=== PATIENT | female | born 1960 | race Caucasian/White ===

== ENCOUNTER 2016-10-30 06:38 | Day surgery (SDC) | payer MEDICAID ==
--- NOTE | 2016-10-16 07:55 | HP ---
DATE OF ADMISSION: 10/23/2016 HISTORY OF PRESENT ILLNESS: The patient is being scheduled today for an outpatient surgery orthopedic for an arthroscopy of the left knee. The patient had a previous arthroscopic surgery dating back to 04/29/2016, was doing very well until she suddenly developed severe pain, locking, catching, and grating type sensation in the inside portion of her left knee. The patient has gone through a treatment program that has failed including physical therapy, antiinflammatory medications, cortisone injection, all of which have been no improvement for her. She continues to have severe pain on activity and movement and walking. Pain scale is 7-8. With the failed treatment, the patient was seen in orthopedic clinic and discussed for repeat arthroscopic evaluation of the left knee joint for treatment of the probable degenerative tearing of the medial meniscus or possible loose joint fragment or fibrous tissue. She understands the procedure and has consented to it. We will schedule her for outpatient surgery. ALLERGIES: The patient has multiple allergies that include Disalcid, Imitrex, Serc, Cefotan, Compazine, erythromycin, Lescol, Lipitor, penicillins, Darvocet, Prozac, Pyridium, Remeron, tetracyclines, Vibramycin, and Welchol. CURRENT MEDICATIONS: Patient currently on Advil 200 mg, albuterol 90. She is on amitriptyline 75 mg, atenolol 25 mg, Florajen3 oral capsules, gemfibrozil 600 mg, Lyrica 100 mg, metformin 500 mg, Indocin 75 mg, Protonix, tramadol, and Nitrostat. PAST MEDICAL HISTORY: The current medical problems include diabetes, history of high blood pressure, increased cholesterol. PAST SURGICAL HISTORY: Positive. The patient underwent recent left knee arthroscopic surgery on 04/29/2016 in which the patient has had no anesthesia problems or complications. Bleeding history is negative. Blood clot history is negative. SOCIAL HISTORY: Tobacco use negative. Alcohol use negative. PHYSICAL EXAMINATION: GENERAL: Today reveals a well-developed, well-nourished, 56-year-old female in moderate distress. HEAD, EYES, EARS, NOSE, THROAT: Normocephalic. NECK: Supple. CHEST: Clear. COR: Regular rate. ABDOMEN: Soft. : Intact. MUSCULOSKELETAL: Examination of the left knee revealed severe pain on direct pressure, palpation along the medial joint area. Anna's very positive for medial meniscus tear. The patient has positive snapping and grating on range of motion of the left knee with direct palpation. Minimal swelling noted. RADIOLOGY: Patient had previous MRI of the left knee which shows degenerative tearing of the medial meniscus, also there is significant bony edema of the medial femoral condyle. ASSESSMENT: Left knee degenerative tearing of medial meniscus with intractable pain. Failed treatment. PLAN: Plan is for the patient to undergo arthroscopic surgery. MMODAL /[id number]
[~2016-10-30 06:38] MED LIST: Lactated Ringers 1,000 ML IV SCH; Lidocaine 1%/Sod Bicarbonate in NS 8.4% 1 ML Syringe IV PRN; Lidocaine 1%/Sod Bicarbonate in NS 8.4% 1 ML Syringe PRN; Scopolamine 1.5 MG Transdermal Patch TRDERM SCH; Sodium Chloride 0.9% 10 ML Syringe FLUSH PRN
[2016-10-30] MEDS ORDERED: Clindamycin Phosphate 900 MG in Sodium Chloride 0.9% 100 ML IV ONE (06:45)
[2016-10-30] MEDS ORDERED: fentaNYL 250 MCG/5 ML SDV ONE (07:24)
[2016-10-30] MEDS ORDERED: Midazolam 1 MG/ML 2 ML SDV ONE (07:24)
[2016-10-30] MEDS ORDERED: Propofol 200 MG/20 ML SDV ONE (07:24)
[2016-10-30] MEDS ORDERED: Ondansetron 4 MG/2 ML SDV ONE (07:24)
[2016-10-30] MEDS ORDERED: Lidocaine 1% 4 ML ONE (07:25)
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
[2016-10-30] MEDS ORDERED: EPINEPHrine 1 MG/ML 30 ML MDV ONE (07:30)
[2016-10-30] MEDS ORDERED: Bupivacaine 0.5%/EPINEPHrine 1:200,000 50 ML MDV ONE (07:30)
[2016-10-30] MEDS ORDERED: Sodium Chloride 0.9% 50 ML SDV ONE (07:31)
[2016-10-30] MEDS ORDERED: Ondansetron 4 MG/2 ML SDV IVPUSH PRN (07:34)
[2016-10-30] MEDS ORDERED: HYDROmorphone 0.5 MG/0.5 ML Syringe IVPUSH PRN ×2 (07:34→09:22)
[2016-10-30] MEDS ORDERED: Cyclobenzaprine 10 MG Tab PO PRN (07:34)
[2016-10-30] MEDS ORDERED: Acetaminophen/oxyCODONE 325-5 MG Tab PO PRN (07:34)
[2016-10-30] MEDS ORDERED: Ketorolac 15 MG/ML SDV IVPUSH PRN (07:34)
[2016-10-30] MEDS ORDERED: Morphine 15 MG Tab.ER PO PRN (07:45)
[2016-10-30] MEDS ORDERED: Vancomycin 1 GM, Vancomycin 500 MG in Sodium Chloride 0.9% 500 ML IV ONE (07:45)
[2016-10-30] MEDS ORDERED: diphenhydrAMINE 50 MG/ML SDV ONE (07:55)
[2016-10-30] MEDS ORDERED: Dexamethasone 4 MG/ML 5 ML MDV ONE (07:55)
[2016-10-30] MEDS ORDERED: Lactated Ringers 1,000 ML ONE (09:13)
[2016-10-30] MEDS ORDERED: fentaNYL 100 MCG/2 ML SDV IVPUSH PRN (09:22)
[2016-10-30] MEDS ORDERED: Ketorolac 30 MG/ML SDV IVPUSH PRN (09:22)
--- NOTE | 2016-10-30 09:26 | PCM.POSTAN ---
POST ANESTHESIA ASSESSMENT - MENTAL STATUS Mental Status: somnolent - VITAL SIGNS Pulse Rate: 62 SaO2: 98 Resp Rate: 11 Blood Pressure: 110/63 Temperature: 36.7 C - RESPIRATORY Respiratory Status: respiratory rate WNL, airway patent, O2 saturation stable, supplemental oxygen - CARDIOVASCULAR CV Status: pulse rate WNL, blood pressure stable - GASTROINTESTINAL GI Status: no symptoms - PAIN Pain Score: 0 - POST OP HYDRATION Hydration Status: adequate & stable - OBSERVATIONS Free Text/Narrative:: no anesthesia complications noted
[2016-10-30 12:50] VITALS: BP 126/78
--- NOTE | 2016-10-30 13:22 | OR ---
DATE OF OPERATION: 10/30/2016 SURGEON: José Miguel Padron MD PREOPERATIVE DIAGNOSIS: Internal derangement of left knee. POSTOPERATIVE DIAGNOSIS: 1. Acute osteochondrosis, medial femoral condyle with fragmentation exposed bone, left knee. 2. Recurrent degenerative tearing, medial meniscus, left knee. 3. Generalized fibrous adhesions, left knee joint. 4. Chondromalacia of patellae, moderate. ANESTHESIA: General. OPERATION PERFORMED: 1. Left knee arthroscopic partial medial meniscectomy and removal of degenerative tearing medial meniscus, posterior horn region. 2. Arthroscopic chondroplasty, medial femoral condyle. 3. Arthroscopic debridement of fibrous adhesions and scar, left knee joint. DESCRIPTION OF PROCEDURE: The patient was taken to the operating room in supine position, placed under a general anesthesia. The left leg was then prepped and draped in standard fashion for operation arthroscopically on the left knee. After prepping and draping, two portal incisions were used medial and lateral with the arthroscope introduced through the lateral compartment. Initial inspection of the anterior compartment from the ACL ligament to be intact. There were some fibrous adhesions present which were lightly shaved out. Examining the medial compartment, the anterior portion of the medial meniscus, I saw some fraying which was debrided. There was significant degeneration and fragmentation of the posterior horn central third to the medial meniscus. This was shaved out and then the edges were trimmed up with electrocautery. The bony surface of the tibial plateau showed mild osteochondrosis changes. The medial femoral condyle showed one central area of osteochondrosis with exposed bone and a second area to the medial side of femoral condyle over the central portion of the medial condyle, medial meniscus that showed exposed bone, but also the lamination of the cartilage from the bone surface was noted going out to the edge. This was smoothed out and shaved out with the cartilage being removed. The bony surfaces and the two areas were then burred to a bleeding bone structure. With the drop in the pressure of the water, the bleeding could easily be seen coming from the bone structure after osteochondroplasty was performed. Once that was satisfied, the operation proceeded with final inspection. Nerve hook was used to probe the medial meniscus from the posterior horn anteriorly. It was nice and stable. Intercondylar notch area of the anterior cruciate ligament was intact. Lateral compartment, lateral meniscus to be intact from the posterior horn anteriorly. Probing found no tearing. The condylar surfaces were intact. Suprapatellar area, the patella was shifted in a central area after undergoing a previous lateral release. There was a chondromalacia present in a healing phase and the major portion of the cartilage itself, minimal to no fragmentation was noted at this point. The operation proceeded with final inspection of suprapatellar area, then light debridement was carried out on some scar tissue. The joint was thoroughly irrigated and the operation then proceeded with closure of the wounds using a 3-0 Prolene. Nieves dressing was applied. At the initiation of the surgery, an arthrocentesis was carried out. Approximately 20 mL of serosanguineous-type fluid was removed from the joint area. This was sent for laboratory studies. ESTIMATED BLOOD LOSS: ANTHONY /[id number]
== END 2016-10-30 12:31 | disposition home or self-care (01) ==
LOC: JD.SDS 06:38
PROVIDERS: ATTEND Specialist
PROC: 0SBD4ZZ Excision of Left Knee Joint, Percutaneous Endoscopic Approach (ICD-10-PCS; principal; 2016-10-30)
DX: M93.862 Other specified osteochondropathies, left lower leg (principal); M23.322 Other meniscus derangements, posterior horn of medial meniscus, left knee; M23.8X2 Other internal derangements of left knee; M22.42 Chondromalacia patellae, left knee; E11.9 Type 2 diabetes mellitus without complications; I10 Essential (primary) hypertension; E78.00 Pure hypercholesterolemia, unspecified; G40.909 Epilepsy, unspecified, not intractable, without status epilepticus; J45.909 Unspecified asthma, uncomplicated; G90.529 Complex regional pain syndrome I of unspecified lower limb; F32.9 Major depressive disorder, single episode, unspecified; F41.1 Generalized anxiety disorder; K21.9 Gastro-esophageal reflux disease without esophagitis; M19.90 Unspecified osteoarthritis, unspecified site; Z88.0 Allergy status to penicillin; Z88.1 Allergy status to other antibiotic agents; Z88.6 Allergy status to analgesic agent; Z88.8 Allergy status to other drugs, medicaments and biological substances; Z79.82 Long term (current) use of aspirin; Z79.84 Long term (current) use of oral hypoglycemic drugs; Z79.899 Other long term (current) drug therapy; Z86.14 Personal history of Methicillin resistant Staphylococcus aureus infection; Z86.711 Personal history of pulmonary embolism; Z86.010 Personal history of colon polyps; Z87.442 Personal history of urinary calculi; Z86.19 Personal history of other infectious and parasitic diseases; Z87.891 Personal history of nicotine dependence; Z98.890 Other specified postprocedural states; Z90.710 Acquired absence of both cervix and uterus; Z90.49 Acquired absence of other specified parts of digestive tract
CPT/HCPCS: 29881; 82945; 82962; 84157; 89050; 89060; 93005; A9270; J0171; J1100; J1170; J1200; J2250; J2405; J3010; J3370; J7030; J7040; J7120; 01400; J2704

== ENCOUNTER 2017-08-17 09:28 | Inpatient (IN) | payer MEDICAID, SELFPAY ==
[~2017-08-17 09:28] MED LIST changes: +Albuterol 0.083% 2.5 MG/3 ML Neb Soln NEB SCH; +Lidocaine 1%/Sod Bicarbonate in NS 8.4% 1 ML Syringe IDERM PRN; -Lidocaine 1%/Sod Bicarbonate in NS 8.4% 1 ML Syringe IV PRN; -Lidocaine 1%/Sod Bicarbonate in NS 8.4% 1 ML Syringe PRN; +Scopolamine 1.5 MG Transdermal Patch TOP SCH
[2017-08-17] MEDS ORDERED: Morphine 8 MG, EPINEPHrine 0.3 MG, Cefuroxime 750 MG, Ketorolac 30 MG, Sodium Chloride ... ONE ×6 (10:30)
[2017-08-17] MEDS ORDERED: fentaNYL 100 MCG/2 ML SDV ONE ×2 (10:43→14:16)
[2017-08-17] MEDS ORDERED: Propofol 200 MG/20 ML SDV ONE ×2 (10:43→10:46)
[2017-08-17] MEDS ORDERED: Iodine/Sodium Iodide 2% Tincture 30 ML Bottle ONE (11:10)
[2017-08-17] MEDS ORDERED: Bupivacaine 0.25% 30 ML SDV ONE (11:10)
[2017-08-17] MEDS ORDERED: ceFAZolin 1 GM Vial ONE (11:10)
[2017-08-17] MEDS ORDERED: Vancomycin 1 GM SDV ONE (11:10)
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
[2017-08-17] MEDS ORDERED: Rocuronium 50 MG/5 ML Vial ONE (12:00)
[2017-08-17] MEDS ORDERED: HYDROmorphone 0.5 MG/0.5 ML Syringe ONE ×2 (12:01→14:00)
[2017-08-17] MEDS ORDERED: Midazolam 1 MG/ML 2 ML SDV ONE (12:05)
[2017-08-17] MEDS ORDERED: fentaNYL 250 MCG/5 ML SDV ONE (12:25)
[2017-08-17] MEDS ORDERED: Ondansetron 4 MG/2 ML SDV ONE (12:26)
[2017-08-17] MEDS: Morphine 8 MG, EPINEPHrine 0.3 MG, Cefuroxime 750 MG, Ketorolac 30 MG, Sodium Chloride ... ONE ×10 (13:24→16:59)
[2017-08-17] MEDS ORDERED: EPINEPHrine 1 MG/ML SDV ONE (13:27)
[2017-08-17] MEDS ORDERED: Ropivacaine 0.5% 5 MG/ML 30 ML SDV ONE (13:27)
[2017-08-17] MEDS ORDERED: Lactated Ringers 1,000 ML ONE (13:58)
[2017-08-17] MEDS ORDERED: Naloxone 0.4 MG/ML SDV IVPUSH PRN (14:00)
[2017-08-17] MEDS ORDERED: Magnesium Hydroxide 400 MG/5 ML Susp 30 ML Cup PO PRN (14:00)
[2017-08-17] MEDS ORDERED: Sennosides 8.6 MG Tab PO PRN (14:00)
[2017-08-17] MEDS ORDERED: Morphine 2 MG/ML Syringe IVPUSH PRN (14:00)
[2017-08-17] MEDS ORDERED: Bisacodyl 5 MG Tab PO PRN (14:00)
[2017-08-17] MEDS ORDERED: Lidocaine 1% 2 ML ONE (14:10)
[2017-08-17] MEDS ORDERED: HYDROmorphone 0.5 MG/0.5 ML Syringe IVPUSH ONE (14:10)
[2017-08-17] MEDS ORDERED: Ondansetron 4 MG/2 ML SDV IVPUSH PRN (14:10)
[2017-08-17] MEDS ORDERED: fentaNYL 100 MCG/2 ML SDV IVPUSH PRN (14:10)
--- NOTE | 2017-08-17 14:10 | PCM.POSTAN ---
POST ANESTHESIA ASSESSMENT - MENTAL STATUS Mental Status: Alert, Oriented - VITAL SIGNS Pulse Rate: 92 SaO2: 98 Resp Rate: 16 Blood Pressure: 149/69 Temperature: 36.8 C - RESPIRATORY Respiratory Status: Respiratory Rate WNL, Airway Patent, O2 Saturation Stable, Supplemental Oxygen - CARDIOVASCULAR CV Status: Pulse Rate WNL, Blood Pressure Stable - GASTROINTESTINAL GI Status: No Symptoms - PAIN Pain Score: 5 (pain meds per RN) - POST OP HYDRATION Hydration Status: Adequate & Stable
--- NOTE | 2017-08-17 14:52 | PCM.SN ---
- Free Text/Narrative Note: Left selective femoral nerve block at the adductor canal for post-procedure pain control under US guidance requested by Dr. Walsh. Time Out: 1431 Start: 1437 End: 1440 Chart reviewed. Consent signed. Questions answered. Appropriate monitors applied. Time out performed. Right mid-shaft femur identified with ultrasound, scanning medially of femur, the femoral artery in the adductor canal visualized , and the femoral nerve located laterally to the artery. The skin was prepped lateral to the ultrasound probe with chlorahexadine times two. The 21ga 4 insulated block needle was inserted under direct ultrasound guidance into the adductor canal. 25mL of 0.5% ropivacaine with 1:200,000 epinephrine was injected circumferentially around the nerve with intermittent negative aspiration noted. Patient tolerated the procedure well. Aseptic technique noted along with sterile gloves, mask, and sterile probe cover. See pictures on progress note and vital signs on nurses notes. Block completed in PACU with Gene Alford CRNA assist. Jeffrey Webster CRNA
--- NOTE | 2017-08-17 15:03 | CR ---
Left knee: Two views of the left knee were obtained. Comparison: Prior MRI left knee exam of 03/06/17. Knee prosthesis is seen. Components are aligned. Underlying bony structures are intact. Soft tissue air is noted from surgical procedure. Impression: 1. Satisfactory postoperative radiographic appearance of recently placed left knee prosthesis. Diagnostic code #2
[2017-08-17] MEDS ORDERED: Nitroglycerin 0.4 MG Tab.SL SL PRN (15:16)
[2017-08-17] MEDS ORDERED: ASPERCREME TOP PRN (15:16)
[2017-08-17] MEDS: Acetaminophen/oxyCODONE 325-5 MG Tab PO PRN ×2 (15:55→22:34)
[2017-08-17] MEDS: Pregabalin 25 MG Cap PO SCH ×2 (17:08→20:16)
[2017-08-17] MEDS: Hypromellose 0.5% Ophth Soln 15 ML Bottle EYEBOTH SCH ×2 (17:08→20:17)
[2017-08-17] MEDS: Polyethylene Glycol 3350 Powder 17 GM Packet PO SCH (17:08)
[2017-08-17] MEDS: Gemfibrozil 600 MG Tab PO SCH (20:16)
[2017-08-17] MEDS: traZODone 50 MG Tab PO SCH (20:16)
[2017-08-17] MEDS: Nortriptyline 25 MG Cap PO SCH (20:16)
[2017-08-17] MEDS: Docusate Sodium 100 MG Cap PO SCH (20:17)
[2017-08-17] MEDS: ceFAZolin 2 GM in Premix Bag 1 BAG IV SCH (20:17)
[2017-08-17] MEDS: metFORMIN 500 MG Tab PO SCH (20:17)
[2017-08-17] MEDS ORDERED: Famotidine 20 MG Tab PO SCH (21:00)
[2017-08-17] MEDS: Ketorolac 15 MG/ML SDV IVPUSH PRN (22:35)
[2017-08-18] MEDS: Acetaminophen/oxyCODONE 325-5 MG Tab PO PRN ×5 (04:49→19:58)
[2017-08-18] MEDS: ceFAZolin 2 GM in Premix Bag 1 BAG IV SCH ×2 (04:50→12:00)
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
--- NOTE | 2017-08-18 08:05 | PCM48HPAN ---
Post Anesthesia Note - EVALUATION WITHIN 48HRS OF ANESTHETIC Vital Signs in Normal Range: Yes Patient Participated in Evaluation: Yes Respiratory Function Stable: Yes Airway Patent: Yes Cardiovascular Function Stable: Yes Hydration Status Stable: Yes Pain Control Satisfactory: Yes Nausea and Vomiting Control Satisfactory: Yes Mental Status Recovered: Yes
--- NOTE | 2017-08-18 08:22 | PCM.SURGPN ---
- General Info Date of Service: 08/18/17 POD#: 1 Functional Status: Reports: Pain Controlled, Tolerating Diet, Ambulating, Urinating, Incentive Spirometry, Other (The pt was pleased with her ability to walk in the room yesterday.) - Patient Data Vitals - Most Recent: Last Vital Signs Temp 98.1 F 08/18/17 04:54 Pulse 72 08/18/17 04:54 Resp 18 08/18/17 04:54 BP 107/62 08/18/17 04:54 Pulse Ox 95 08/18/17 04:54 Weight - Most Recent: 186 lb I&O - Last 24 Hours: Intake & Output 08/17/17 08/18/17 08/18/17 22:59 06:59 14:59 Intake Total 120 1000 Output Total 900 Balance 120 100 Lab Results Last 24 Hrs: Laboratory Results - last 24 hr 08/17/17 08/18/17 08/18/17 Range/Units 16:56 06:05 06:05 WBC 11.07 H (3.98-10.04) K/mm3 RBC 4.62 (3.98-5.22) M/mm3 Hgb 10.5 L (11.2-15.7) gm/L Hct 32.8 L (34.1-44.9) % MCV 71.0 L (79.4-94.8) fl MCH 22.7 L (25.6-32.2) pg MCHC 32.0 L (32.2-35.5) g/dl RDW Std Deviation 50.6 H (36.4-46.3) fL Plt Count 301 (182-369) K/mm3 MPV 11.4 (9.4-12.3) fl Sodium 132 L (136-145) mEq/L Potassium 4.3 (3.5-5.1) mEq/L Chloride 97 L (98-107) mEq/L Carbon Dioxide 26 (21-32) mEq/L Anion Gap 13.3 (5-15) BUN 20 H (7-18) mg/dL Creatinine 0.9 (0.55-1.02) mg/dL Est Cr Clr Drug Dosing 61.31 mL/min Estimated GFR (MDRD) > 60 (>60) mL/min BUN/Creatinine Ratio 22.2 H (14-18) Glucose 125 H (74-106) mg/dL POC Glucose 144 H (70-105) mg/dL Calcium 8.9 (8.5-10.1) mg/dL Total Bilirubin 0.3 (0.2-1.0) mg/dL AST 32 (15-37) U/L ALT 29 (14-59) U/L Alkaline Phosphatase 91 (46-116) U/L Total Protein 6.6 (6.4-8.2) g/dl Albumin 3.6 (3.4-5.0) g/dl Globulin 3.0 gm/dL Albumin/Globulin Ratio 1.2 (1-2) 08/18/17 Range/Units 06:28 WBC (3.98-10.04) K/mm3 RBC (3.98-5.22) M/mm3 Hgb (11.2-15.7) gm/L Hct (34.1-44.9) % MCV (79.4-94.8) fl MCH (25.6-32.2) pg MCHC (32.2-35.5) g/dl RDW Std Deviation (36.4-46.3) fL Plt Count (182-369) K/mm3 MPV (9.4-12.3) fl Sodium (136-145) mEq/L Potassium (3.5-5.1) mEq/L Chloride (98-107) mEq/L Carbon Dioxide (21-32) mEq/L Anion Gap (5-15) BUN (7-18) mg/dL Creatinine (0.55-1.02) mg/dL Est Cr Clr Drug Dosing mL/min Estimated GFR (MDRD) (>60) mL/min BUN/Creatinine Ratio (14-18) Glucose (74-106) mg/dL POC Glucose 134 H (70-105) mg/dL Calcium (8.5-10.1) mg/dL Total Bilirubin (0.2-1.0) mg/dL AST (15-37) U/L ALT (14-59) U/L Alkaline Phosphatase (46-116) U/L Total Protein (6.4-8.2) g/dl Albumin (3.4-5.0) g/dl Globulin gm/dL Albumin/Globulin Ratio (1-2) Med Orders - Current: Current Medications Artificial Tears (Isopto Tears 0.5% Ophth Soln) 0 ml EYEBOTH QID REPLACED BY [facility] Last Admin: 08/17/17 20:17 Dose: 1 drop Aspirin (Halfprin) 81 mg PO DAILY REPLACED BY [facility] Bisacodyl (Dulcolax) 5 mg PO DAILY PRN PRN Reason: Constipation Docusate Sodium (Colace) 100 mg PO BID REPLACED BY [facility] Last Admin: 08/17/17 20:17 Dose: 100 mg Gemfibrozil (Lopid) 600 mg PO BID REPLACED BY [facility] Last Admin: 08/17/17 20:16 Dose: 600 mg Hydroxyzine HCl (Atarax) 50 mg PO QAM REPLACED BY [facility] Cefazolin Sodium/Dextrose 2 gm (/ Premix) 50 mls @ 100 mls/hr IV Q8H REPLACED BY [facility] Stop: 08/18/17 12:29 Last Admin: 08/18/17 04:50 Dose: 100 mls/hr Ketorolac Tromethamine (Toradol) 15 mg IVPUSH Q6H PRN PRN Reason: Pain Last Admin: 08/17/17 22:35 Dose: 15 mg Lisinopril (Prinivil) 20 mg PO DAILY REPLACED BY [facility] Magnesium Hydroxide (Milk Of Magnesia) 30 ml PO BID PRN PRN Reason: Constipation Metformin HCl (Glucophage) 500 mg PO BID REPLACED BY [facility] Last Admin: 08/17/17 20:17 Dose: 500 mg Morphine Sulfate (Morphine) 2 mg IVPUSH Q2H PRN PRN Reason: Breakthrough Pain Naloxone HCl (Narcan) 0.1 mg IVPUSH Q5M PRN PRN Reason: Oversedation Nitroglycerin (Nitrostat) 0.4 mg SL Q5M PRN PRN Reason: Chest Pain Non-Formulary Medication (Hydroxyzine Pamoate [Hydroxyzine Pamoate]) 150 mg PO QPM REPLACED BY [facility] NfAspercreme ( Trolamine Salicylate /Aloe Vera) 1 applic TOP QID PRN PRN Reason: Pain Nortriptyline HCl (Nortriptyline) 50 mg PO BEDTIME REPLACED BY [facility] Last Admin: 08/17/17 20:16 Dose: 50 mg Ondansetron HCl (Zofran) 4 mg IVPUSH Q6H PRN PRN Reason: Nausea/Vomiting Oxycodone/Acetaminophen (Percocet 325-5 Mg) 1 - 2 tab PO Q4H PRN PRN Reason: Pain Last Admin: 08/18/17 04:49 Dose: 2 tab Pantoprazole Sodium (Protonix) 40 mg PO DAILY REPLACED BY [facility] Polyethylene Glycol (Miralax) 17 gm PO Q48H REPLACED BY [facility] Last Admin: 08/17/17 17:08 Dose: 17 gm Pregabalin (Lyrica) 100 mg PO TID REPLACED BY [facility] Last Admin: 08/17/17 20:16 Dose: 100 mg Rivaroxaban (Xarelto) 10 mg PO DAILY REPLACED BY [facility] Saccharomyces Boulardii (Florastor) 250 mg PO DAILY REPLACED BY [facility] Senna (Senna) 8.6 mg PO BID PRN PRN Reason: Constipation Trazodone HCl (Trazodone) 100 mg PO BEDTIME REPLACED BY [facility] Last Admin: 08/17/17 20:16 Dose: 100 mg Discontinued Medications Albuterol (Proventil Neb Soln) 2.5 mg NEB ONETIME REPLACED BY [facility] Stop: 07/27/17 16:00 Bupivacaine HCl (Marcaine 0.25%) Confirm Administered Dose 30 ml .ROUTE .STK- MED ONE Stop: 08/17/17 11:11 Last Admin: 08/17/17 13:25 Dose: 30 ml Cefazolin Sodium (Ancef) Confirm Administered Dose 2 gm .ROUTE .STK-MED ONE Stop: 08/17/17 11:11 Last Admin: 08/17/17 13:19 Dose: 2 gm Morphine Sulfate 8 mg/Epinephrine HCl 0.3 mg/Cefuroxime Sodium 750 mg/Ketorolac Tromethamine 30 mg/Sodium Chloride 27.9 ml 0 mg .XX ONETIME ONE Stop: 08/17/17 12:31 Last Admin: 08/17/17 16:59 Dose: Not Given Epinephrine HCl (Adrenalin) Confirm Administered Dose 1 mg .ROUTE .STK-MED ONE Stop: 08/17/17 13:28 Famotidine (Pepcid) 20 mg PO Q12H REPLACED BY [facility] Fentanyl (Sublimaze) Confirm Administered Dose 100 mcg .ROUTE .STK-MED ONE Stop: 08/17/17 10:44 Fentanyl (Sublimaze) Confirm Administered Dose 250 mcg .ROUTE .STK-MED ONE Stop: 08/17/17 12:26 Fentanyl (Sublimaze) 50 mcg IVPUSH Q5M PRN PRN Reason: pain Stop: 08/17/17 16:00 Last Admin: 08/17/17 14:17 Dose: 50 mcg Fentanyl (Sublimaze) Confirm Administered Dose 100 mcg .ROUTE .STK-MED ONE Stop: 08/17/17 14:17 Last Admin: 08/17/17 16:59 Dose: Not Given Hydromorphone HCl (Dilaudid) Confirm Administered Dose 0.5 mg .ROUTE .STK-MED ONE Stop: 08/17/17 12:02 Hydromorphone HCl (Dilaudid) Confirm Administered Dose 0.5 mg .ROUTE .STK-MED ONE Stop: 08/17/17 14:01 Hydromorphone HCl (Dilaudid) 0.5 mg IVPUSH ONETIME ONE Stop: 08/17/17 14:11 Last Admin: 08/17/17 14:36 Dose: 0.5 mg Lactated Ringer's (Ringers, Lactated) 1,000 mls @ 125 mls/hr IV ASDIRECTED REPLACED BY [facility] Stop: 07/27/17 23:00 Lactated Ringer's (Ringers, Lactated) 1,000 mls @ 125 mls/hr IV ASDIRECTED REPLACED BY [facility] Stop: 08/17/17 23:00 Last Admin: 08/17/17 11:20 Dose: 125 mls/hr Vancomycin HCl 1 gm/ Sodium (Chloride) 250 mls @ 250 mls/hr IV ONETIME ONE Stop: 08/17/17 13:29 Last Admin: 08/17/17 17:21 Dose: Not Given Lactated Ringer's (Ringers, Lactated) Confirm Administered Dose 1,000 mls @ as directed .ROUTE .STK-MED ONE Stop: 08/17/17 13:59 Lidocaine HCl (Xylocaine-Mpf 1%) Confirm Administered Dose 2 mls @ as directed .ROUTE .STK-MED ONE Stop: 08/17/17 14:11 Iodine (Iodine 2% Mild Tincture) Confirm Administered Dose 30 ml .ROUTE .STK- MED ONE Stop: 08/17/17 11:11 Last Admin: 08/17/17 13:17 Dose: 18 ml Lidocaine/Sodium Bicarbonate (Buffered Lidocaine 1% In Ns 8.4%) 0.25 ml IDERM ONETIME PRN PRN Reason: Prior to IV Start Stop: 07/27/17 18:00 Lidocaine/Sodium Bicarbonate (Buffered Lidocaine 1% In Ns 8.4%) 0.25 ml IDERM ONETIME PRN PRN Reason: Prior to IV Start Stop: 08/17/17 18:00 Last Admin: 08/17/17 11:19 Dose: 0.25 ml Midazolam HCl (Versed 1 Mg/Ml) Confirm Administered Dose 2 mg .ROUTE .STK-MED ONE Stop: 08/17/17 12:06 Ondansetron HCl (Zofran) Confirm Administered Dose 4 mg .ROUTE .STK-MED ONE Stop: 08/17/17 12:27 Ondansetron HCl (Zofran) 4 mg IVPUSH ONETIME PRN PRN Reason: Nausea/Vomiting Stop: 08/17/17 17:00 Propofol (Diprivan 20 Ml) Confirm Administered Dose 200 mg .ROUTE .STK-MED ONE Stop: 08/17/17 10:44 Propofol (Diprivan 20 Ml) Confirm Administered Dose 200 mg .ROUTE .STK-MED ONE Stop: 08/17/17 10:47 Rocuronium [place] (Zemuron) Confirm Administered Dose 50 mg .ROUTE .STK-MED ONE Stop: 08/17/17 12:01 Ropivacaine (Naropin 0.5%) Confirm Administered Dose 30 ml .ROUTE .STK-MED ONE Stop: 08/17/17 13:28 Scopolamine (Transderm-Scop) 1.5 mg TOP ONETIME [facility] Stop: 07/27/17 16:00 Scopolamine (Transderm-Scop) 1.5 mg TRDERM ONETIME [facility] Stop: 08/17/17 18:00 Last Admin: 08/17/17 11:48 Dose: 1.5 mg Sodium Chloride (Saline Flush) 10 ml FLUSH ASDIRECTED PRN PRN Reason: Keep Vein Open Stop: 07/27/17 18:00 Sodium Chloride (Saline Flush) 10 ml FLUSH ASDIRECTED PRN PRN Reason: Keep Vein Open Stop: 08/17/17 18:00 Tranexamic Acid (Cyklokapron) Confirm Administered Dose 1,000 mg .ROUTE .STK- MED ONE Stop: 08/17/17 11:10 Last Admin: 08/17/17 13:32 Dose: 1,000 mg Vancomycin HCl (Vancomycin) Confirm Administered Dose 1 gm .ROUTE .STK-MED ONE Stop: 08/17/17 11:11 Last Admin: 08/17/17 13:27 Dose: 1 gm Vancomycin HCl (Pharmacy To Dose - Vancomycin) 1 dose .XX ASDIRECTED [facility] Stop: 08/17/17 13:00 - Exam Wound/Incisions: Dressing Dry and Intact General: Alert, Cooperative, No Acute Distress Lungs: Normal Respiratory Effort Extremities: Other (Active left knee motion noted. Nick's negative for BLE.) - Problem List Review Problem List Initiated/Reviewed/Updated: Yes - My Orders Last 24 Hours: Active Orders 24 hr Category Date Time Status Notify Provider [RC] ASDIRECTED Care 08/17/17 14:10 Active POC Glucose [Blood Glucose Check, Bedside] [] 0700, Care 08/18/17 07:00 Active 1100 Pulse Oximetry [] ASDIRECTED Care 08/17/17 14:10 Active ADA Diabetic [[place] [employer] Diet] [DIET Diet 08/17/17 Dinner Active ] Acetaminophen/oxyCODONE [Percocet 325-5 MG] Med 08/17/17 14:00 Active 1 - 2 tab PO Q4H PRN Aspirin [Halfprin] Med 08/18/17 09:00 Active 81 mg PO DAILY Bisacodyl [Dulcolax] Med 08/17/17 14:00 Active 5 mg PO DAILY PRN Docusate Sodium [Colace] Med 08/17/17 21:00 Active 100 mg PO BID Gemfibrozil [Lopid] Med 08/17/17 21:00 Active 600 mg PO BID Hypromellose [Isopto Tears 0.5% Ophth Soln] Med 08/17/17 17:00 Active 0 ml EYEBOTH QID Ketorolac [Toradol] Med 08/17/17 14:00 Active 15 mg IVPUSH Q6H PRN Lisinopril [Prinivil] Med 08/18/17 09:00 Active 20 mg PO DAILY Magnesium Hydroxide [Milk of Magnesia] Med 08/17/17 14:00 Active 30 ml PO BID PRN Morphine Med 08/17/17 14:00 Active 2 mg IVPUSH Q2H PRN Naloxone [Narcan] Med 08/17/17 14:00 Active 0.1 mg IVPUSH Q5M PRN Nitroglycerin [Nitrostat] Med 08/17/17 15:16 Active 0.4 mg SL Q5M PRN Nortriptyline Med 08/17/17 21:00 Active 50 mg PO BEDTIME Ondansetron [Zofran] Med 08/17/17 14:00 Active 4 mg IVPUSH Q6H PRN Pantoprazole [ProTONIX] Med 08/18/17 09:00 Active 40 mg PO DAILY Polyethylene Glycol 3350 [MiraLAX] Med 08/17/17 16:30 Active 17 gm PO Q48H Pregabalin [Lyrica] Med 08/17/17 16:30 Active 100 mg PO TID Rivaroxaban [Xarelto] Med 08/18/17 09:00 Active 10 mg PO DAILY Saccharomyces Boulardii [Florastor] Med 08/18/17 09:00 Active 250 mg PO DAILY Sennosides [Senna] Med 08/17/17 14:00 Active 8.6 mg PO BID PRN Trolamine Salicylate/Aloe Vera Med 08/17/17 15:16 Pending 1 applic TOP QID PRN ceFAZolin [Ancef] 2 gm Med 08/17/17 20:00 Active Premix Bag 1 bag IV Q8H hydrOXYzine HCl [Atarax] Med 08/18/17 08:00 Active 50 mg PO QAM hydrOXYzine Pamoate [Hydroxyzine Pamoate] Med 08/17/17 18:00 Pending 150 mg PO QPM metFORMIN [Glucophage] Med 08/17/17 21:00 Active 500 mg PO BID traZODone Med 08/17/17 21:00 Active 100 mg PO BEDTIME Medication Orders Artificial Tears (Isopto Tears 0.5% Ophth Soln) 0 ml EYEBOTH QID REPLACED BY [facility] Last Admin: 08/17/17 20:17 Dose: 1 drop Admin: 08/17/17 17:08 Dose: 1 drop Aspirin (Halfprin) 81 mg PO DAILY REPLACED BY [facility] Bisacodyl (Dulcolax) 5 mg PO DAILY PRN PRN Reason: Constipation Docusate Sodium (Colace) 100 mg PO BID REPLACED BY [facility] Last Admin: 08/17/17 20:17 Dose: 100 mg Gemfibrozil (Lopid) 600 mg PO BID REPLACED BY [facility] Last Admin: 08/17/17 20:16 Dose: 600 mg Hydroxyzine HCl (Atarax) 50 mg PO QAM REPLACED BY [facility] Cefazolin Sodium/Dextrose 2 gm (/ Premix) 50 mls @ 100 mls/hr IV Q8H REPLACED BY [facility] Stop: 08/18/17 12:29 Last Admin: 08/18/17 04:50 Dose: 100 mls/hr Infusion: 08/17/17 20:47 Dose: 100 mls/hr Admin: 08/17/17 20:17 Dose: 100 mls/hr Ketorolac Tromethamine (Toradol) 15 mg IVPUSH Q6H PRN PRN Reason: Pain Last Admin: 08/17/17 22:35 Dose: 15 mg Lisinopril (Prinivil) 20 mg PO DAILY REPLACED BY [facility] Magnesium Hydroxide (Milk Of Magnesia) 30 ml PO BID PRN PRN Reason: Constipation Metformin HCl (Glucophage) 500 mg PO BID REPLACED BY [facility] Last Admin: 08/17/17 20:17 Dose: 500 mg Morphine Sulfate (Morphine) 2 mg IVPUSH Q2H PRN PRN Reason: Breakthrough Pain Naloxone HCl (Narcan) 0.1 mg IVPUSH Q5M PRN PRN Reason: Oversedation Nitroglycerin (Nitrostat) 0.4 mg SL Q5M PRN PRN Reason: Chest Pain Non-Formulary Medication (Hydroxyzine Pamoate [Hydroxyzine Pamoate]) 150 mg PO QPM REPLACED BY [facility] NfAspercreme ( Trolamine Salicylate /Aloe Vera) 1 applic TOP QID PRN PRN Reason: Pain Nortriptyline HCl (Nortriptyline) 50 mg PO BEDTIME REPLACED BY [facility] Last Admin: 08/17/17 20:16 Dose: 50 mg Ondansetron HCl (Zofran) 4 mg IVPUSH Q6H PRN PRN Reason: Nausea/Vomiting Oxycodone/Acetaminophen (Percocet 325-5 Mg) 1 - 2 tab PO Q4H PRN PRN Reason: Pain Last Admin: 08/18/17 04:49 Dose: 2 tab Admin: 08/17/17 22:34 Dose: 2 tab Admin: 08/17/17 15:55 Dose: 2 tab Pantoprazole Sodium (Protonix) 40 mg PO DAILY REPLACED BY [facility] Polyethylene Glycol (Miralax) 17 gm PO Q48H REPLACED BY [facility] Last Admin: 08/17/17 17:08 Dose: 17 gm Pregabalin (Lyrica) 100 mg PO TID REPLACED BY [facility] Last Admin: 08/17/17 20:16 Dose: 100 mg Admin: 08/17/17 17:08 Dose: 100 mg Rivaroxaban (Xarelto) 10 mg PO DAILY REPLACED BY [facility] Saccharomyces Boulardii (Florastor) 250 mg PO DAILY REPLACED BY [facility] Senna (Senna) 8.6 mg PO BID PRN PRN Reason: Constipation Trazodone HCl (Trazodone) 100 mg PO BEDTIME REPLACED BY [facility] Last Admin: 08/17/17 20:16 Dose: 100 mg - Assessment Assessment (Free Text/Narrative):: POD#1 - left TKA - Plan Plan (Free Text/Narrative):: 1. Xarelto, frequent mobility, TEDs, SCDs. 2. Hgb 10.5. 3. Likely d/c to Longterm. 4. Continue with P.T. and O.T. The pt's case was discussed with Dr. Walsh.
[2017-08-18] MEDS: Hypromellose 0.5% Ophth Soln 15 ML Bottle EYEBOTH SCH ×4 (09:29→20:00)
[2017-08-18] MEDS: Gemfibrozil 600 MG Tab PO SCH ×2 (09:30→20:00)
[2017-08-18] MEDS: Docusate Sodium 100 MG Cap PO SCH ×2 (09:30→20:00)
[2017-08-18] MEDS: Pantoprazole 40 MG Tab.CR PO SCH (09:30)
[2017-08-18] MEDS: Aspirin 81 MG Tab.EC PO SCH (09:30)
[2017-08-18] MEDS: hydrOXYzine HCl 50 MG Tab PO SCH ×3 (09:30→17:09)
[2017-08-18] MEDS: metFORMIN 500 MG Tab PO SCH ×2 (09:30→20:00)
[2017-08-18] MEDS: Saccharomyces Boulardii (Probiotic) 250 MG Cap PO SCH (09:30)
[2017-08-18] MEDS: Lisinopril 20 MG Tab PO SCH (09:31)
[2017-08-18] MEDS: Rivaroxaban 10 MG Tab PO SCH (09:31)
[2017-08-18] MEDS: Ondansetron 4 MG/2 ML SDV IVPUSH PRN (10:23)
[2017-08-18] MEDS: Ketorolac 15 MG/ML SDV IVPUSH PRN (10:32)
[2017-08-18] MEDS ORDERED: Pregabalin 75 MG Cap PO SCH (11:09)
[2017-08-18] MEDS: Pregabalin 25 MG Cap PO SCH ×4 (11:58→20:00)
[2017-08-18] MEDS: Pregabalin 75 MG Cap PO SCH ×3 (14:26→20:00)
[2017-08-18] MEDS: Nortriptyline 25 MG Cap PO SCH (20:00)
[2017-08-18] MEDS: traZODone 50 MG Tab PO SCH (20:00)
[2017-08-18] MEDS ORDERED: traMADol 50 MG Tab PO PRN ×2 (21:51→21:56)
[2017-08-18] MEDS ORDERED: oxyCODONE 5 MG Tab PO PRN (21:54)
[2017-08-18] MEDS: traMADol 50 MG Tab PO PRN (22:26)
[2017-08-19] MEDS: Acetaminophen/oxyCODONE 325-5 MG Tab PO PRN ×5 (04:02→21:42)
[2017-08-19] MEDS: traMADol 50 MG Tab PO PRN ×2 (05:39→12:16)
[2017-08-19] MEDS: Pregabalin 75 MG Cap PO SCH ×3 (08:20→21:43)
[2017-08-19] MEDS: Hypromellose 0.5% Ophth Soln 15 ML Bottle EYEBOTH SCH ×4 (08:20→21:43)
[2017-08-19] MEDS: Pantoprazole 40 MG Tab.CR PO SCH (08:20)
[2017-08-19] MEDS: Lisinopril 20 MG Tab PO SCH (08:20)
[2017-08-19] MEDS: Aspirin 81 MG Tab.EC PO SCH (08:20)
[2017-08-19] MEDS: Rivaroxaban 10 MG Tab PO SCH (08:20)
[2017-08-19] MEDS: Saccharomyces Boulardii (Probiotic) 250 MG Cap PO SCH (08:20)
[2017-08-19] MEDS: hydrOXYzine HCl 50 MG Tab PO SCH ×2 (08:21→17:52)
[2017-08-19] MEDS: metFORMIN 500 MG Tab PO SCH ×2 (08:21→21:42)
[2017-08-19] MEDS: Docusate Sodium 100 MG Cap PO SCH ×2 (08:21→21:42)
[2017-08-19] MEDS: Gemfibrozil 600 MG Tab PO SCH ×2 (08:21→21:43)
[2017-08-19] MEDS: Pregabalin 25 MG Cap PO SCH ×3 (08:21→21:42)
[2017-08-19] MEDS ORDERED: Cyclobenzaprine 10 MG Tab PO PRN (08:26)
--- NOTE | 2017-08-19 08:26 | PCM.SURGPN ---
- General Info Date of Service: 08/19/17 POD#: 2 Functional Status: Reports: Pain Controlled, Tolerating Diet, Ambulating, Urinating, Incentive Spirometry, Other (The pt states her pain was increased last evening but has improved this morning with addition of Ultram.) - Review of Systems Musculoskeletal: Reports: Other (The pt is progressing with therapies.) - Patient Data Vitals - Most Recent: Last Vital Signs Temp 97.5 F 08/19/17 03:19 Pulse 86 08/19/17 03:19 Resp 18 08/19/17 03:19 BP 115/72 08/19/17 03:19 Pulse Ox 97 08/19/17 06:13 Weight - Most Recent: 185 lb 14.4 oz I&O - Last 24 Hours: Intake & Output 08/18/17 08/19/17 08/19/17 22:59 06:59 14:59 Intake Total 1950 200 Output Total 1950 1000 Balance 0 -800 Lab Results Last 24 Hrs: Laboratory Results - last 24 hr 08/18/17 08/19/17 Range/Units 10:48 07:24 POC Glucose 135 H 150 H (70-105) mg/dL Med Orders - Current: Current Medications Artificial Tears (Isopto Tears 0.5% Ophth Soln) 0 ml EYEBOTH QID [facility] Last Admin: 08/18/17 20:00 Dose: 1 drop Aspirin (Halfprin) 81 mg PO DAILY [facility] Last Admin: 08/18/17 09:30 Dose: 81 mg Bisacodyl (Dulcolax) 5 mg PO DAILY PRN PRN Reason: Constipation Last Admin: 08/18/17 09:31 Dose: 5 mg Docusate Sodium (Colace) 100 mg PO BID [facility] Last Admin: 08/18/17 20:00 Dose: 100 mg Gemfibrozil (Lopid) 600 mg PO BID [facility] Last Admin: 08/18/17 20:00 Dose: 600 mg Hydroxyzine HCl (Atarax) 50 mg PO QAM [facility] Last Admin: 08/18/17 09:30 Dose: 50 mg Hydroxyzine HCl (Atarax) 150 mg PO QPM [facility] Last Admin: 08/18/17 17:09 Dose: 150 mg Ketorolac Tromethamine (Toradol) 15 mg IVPUSH Q6H PRN PRN Reason: Pain Last Admin: 08/18/17 10:32 Dose: 15 mg Lisinopril (Prinivil) 20 mg PO DAILY [facility] Last Admin: 08/18/17 09:31 Dose: 20 mg Magnesium Hydroxide (Milk Of Magnesia) 30 ml PO BID PRN PRN Reason: Constipation Metformin HCl (Glucophage) 500 mg PO BID [facility] Last Admin: 08/18/17 20:00 Dose: 500 mg Morphine Sulfate (Morphine) 2 mg IVPUSH Q2H PRN PRN Reason: Breakthrough Pain Naloxone HCl (Narcan) 0.1 mg IVPUSH Q5M PRN PRN Reason: Oversedation Nitroglycerin (Nitrostat) 0.4 mg SL Q5M PRN PRN Reason: Chest Pain Nortriptyline HCl (Nortriptyline) 50 mg PO BEDTIME [facility] Last Admin: 08/18/17 20:00 Dose: 50 mg Ondansetron HCl (Zofran) 4 mg IVPUSH Q6H PRN PRN Reason: Nausea/Vomiting Last Admin: 08/18/17 10:23 Dose: 4 mg Oxycodone HCl (Oxycodone) 5 mg PO Q6H PRN PRN Reason: Pain Last Admin: 08/18/17 23:44 Dose: 5 mg Oxycodone/Acetaminophen (Percocet 325-5 Mg) 1 - 2 tab PO Q4H PRN PRN Reason: Pain Last Admin: 08/19/17 08:14 Dose: 2 tab Pantoprazole Sodium (Protonix) 40 mg PO DAILY [facility] Last Admin: 08/18/17 09:30 Dose: 40 mg NfAspercreme ( Trolamine Salicylate /Aloe Vera) 0 each TOP QID PRN PRN Reason: Pain Polyethylene Glycol (Miralax) 17 gm PO Q48H [facility] Last Admin: 08/17/17 17:08 Dose: 17 gm Pregabalin (Lyrica) 25 mg PO TID [facility] Last Admin: 08/18/17 20:00 Dose: 25 mg Pregabalin (Lyrica) 75 mg PO TID [facility] Last Admin: 08/18/17 20:00 Dose: 75 mg Rivaroxaban (Xarelto) 10 mg PO DAILY [facility] Last Admin: 08/18/17 09:31 Dose: 10 mg Saccharomyces Boulardii (Florastor) 250 mg PO DAILY [facility] Last Admin: 08/18/17 09:30 Dose: 250 mg Senna (Senna) 8.6 mg PO BID PRN PRN Reason: Constipation Tramadol HCl (Ultram) 50 - 100 mg PO Q6H PRN PRN Reason: Pain Last Admin: 08/19/17 05:39 Dose: 100 mg Trazodone HCl (Trazodone) 100 mg PO BEDTIME [facility] Last Admin: 08/18/17 20:00 Dose: 100 mg Discontinued Medications Albuterol (Proventil Neb Soln) 2.5 mg NEB ONETIME [facility] Stop: 07/27/17 16:00 Bupivacaine HCl (Marcaine 0.25%) Confirm Administered Dose 30 ml .ROUTE .STK- MED ONE Stop: 08/17/17 11:11 Last Admin: 08/17/17 13:25 Dose: 30 ml Cefazolin Sodium (Ancef) Confirm Administered Dose 2 gm .ROUTE .STK-MED ONE Stop: 08/17/17 11:11 Last Admin: 08/17/17 13:19 Dose: 2 gm Morphine Sulfate 8 mg/Epinephrine HCl 0.3 mg/Cefuroxime Sodium 750 mg/Ketorolac Tromethamine 30 mg/Sodium Chloride 27.9 ml 0 mg .XX ONETIME ONE Stop: 08/17/17 12:31 Last Admin: 08/17/17 16:59 Dose: Not Given Epinephrine HCl (Adrenalin) Confirm Administered Dose 1 mg .ROUTE .STK-MED ONE Stop: 08/17/17 13:28 Famotidine (Pepcid) 20 mg PO Q12H [facility] Fentanyl (Sublimaze) Confirm Administered Dose 100 mcg .ROUTE .STK-MED ONE Stop: 08/17/17 10:44 Fentanyl (Sublimaze) Confirm Administered Dose 250 mcg .ROUTE .STK-MED ONE Stop: 08/17/17 12:26 Fentanyl (Sublimaze) 50 mcg IVPUSH Q5M PRN PRN Reason: pain Stop: 08/17/17 16:00 Last Admin: 08/17/17 14:17 Dose: 50 mcg Fentanyl (Sublimaze) Confirm Administered Dose 100 mcg .ROUTE .STK-MED ONE Stop: 08/17/17 14:17 Last Admin: 08/17/17 16:59 Dose: Not Given Hydromorphone HCl (Dilaudid) Confirm Administered Dose 0.5 mg .ROUTE .STK-MED ONE Stop: 08/17/17 12:02 Hydromorphone HCl (Dilaudid) Confirm Administered Dose 0.5 mg .ROUTE .STK-MED ONE Stop: 08/17/17 14:01 Hydromorphone HCl (Dilaudid) 0.5 mg IVPUSH ONETIME ONE Stop: 08/17/17 14:11 Last Admin: 08/17/17 14:36 Dose: 0.5 mg Lactated Ringer's (Ringers, Lactated) 1,000 mls @ 125 mls/hr IV ASDIRECTED [facility] Stop: 07/27/17 23:00 Lactated Ringer's (Ringers, Lactated) 1,000 mls @ 125 mls/hr IV ASDIRECTED [facility] Stop: 08/17/17 23:00 Last Admin: 08/17/17 11:20 Dose: 125 mls/hr Cefazolin Sodium/Dextrose 2 gm (/ Premix) 50 mls @ 100 mls/hr IV Q8H [facility] Stop: 08/18/17 12:29 Last Admin: 08/18/17 12:00 Dose: 100 mls/hr Vancomycin HCl 1 gm/ Sodium (Chloride) 250 mls @ 250 mls/hr IV ONETIME ONE Stop: 08/17/17 13:29 Last Admin: 08/17/17 17:21 Dose: Not Given Lactated Ringer's (Ringers, Lactated) Confirm Administered Dose 1,000 mls @ as directed .ROUTE .STK-MED ONE Stop: 08/17/17 13:59 Lidocaine HCl (Xylocaine-Mpf 1%) Confirm Administered Dose 2 mls @ as directed .ROUTE .STK-MED ONE Stop: 08/17/17 14:11 Iodine (Iodine 2% Mild Tincture) Confirm Administered Dose 30 ml .ROUTE .STK- MED ONE Stop: 08/17/17 11:11 Last Admin: 08/17/17 13:17 Dose: 18 ml Lidocaine/Sodium Bicarbonate (Buffered Lidocaine 1% In Ns 8.4%) 0.25 ml IDERM ONETIME PRN PRN Reason: Prior to IV Start Stop: 07/27/17 18:00 Lidocaine/Sodium Bicarbonate (Buffered Lidocaine 1% In Ns 8.4%) 0.25 ml IDERM ONETIME PRN PRN Reason: Prior to IV Start Stop: 08/17/17 18:00 Last Admin: 08/17/17 11:19 Dose: 0.25 ml Midazolam HCl (Versed 1 Mg/Ml) Confirm Administered Dose 2 mg .ROUTE .STK-MED ONE Stop: 08/17/17 12:06 Ondansetron HCl (Zofran) Confirm Administered Dose 4 mg .ROUTE .STK-MED ONE Stop: 08/17/17 12:27 Ondansetron HCl (Zofran) 4 mg IVPUSH ONETIME PRN PRN Reason: Nausea/Vomiting Stop: 08/17/17 17:00 Pregabalin (Lyrica) 100 mg PO TID [facility] Last Admin: 08/18/17 14:27 Dose: Not Given Pregabalin (Lyrica) 75 mg PO TID [facility] Last Admin: 08/18/17 12:00 Dose: 75 mg Propofol (Diprivan 20 Ml) Confirm Administered Dose 200 mg .ROUTE .STK-MED ONE Stop: 08/17/17 10:44 Propofol (Diprivan 20 Ml) Confirm Administered Dose 200 mg .ROUTE .STK-MED ONE Stop: 08/17/17 10:47 Rocuronium [place] (Zemuron) Confirm Administered Dose 50 mg .ROUTE .STK-MED ONE Stop: 08/17/17 12:01 Ropivacaine (Naropin 0.5%) Confirm Administered Dose 30 ml .ROUTE .STK-MED ONE Stop: 08/17/17 13:28 Scopolamine (Transderm-Scop) 1.5 mg TOP ONETIME [facility] Stop: 07/27/17 16:00 Scopolamine (Transderm-Scop) 1.5 mg TRDERM ONETIME [facility] Stop: 08/17/17 18:00 Last Admin: 08/17/17 11:48 Dose: 1.5 mg Sodium Chloride (Saline Flush) 10 ml FLUSH ASDIRECTED PRN PRN Reason: Keep Vein Open Stop: 07/27/17 18:00 Sodium Chloride (Saline Flush) 10 ml FLUSH ASDIRECTED PRN PRN Reason: Keep Vein Open Stop: 08/17/17 18:00 Tramadol HCl (Ultram) 50 mg PO Q6H PRN PRN Reason: Pain Tramadol HCl (Ultram) 1 - 2 mg PO Q6H PRN PRN Reason: Pain Tranexamic Acid (Cyklokapron) Confirm Administered Dose 1,000 mg .ROUTE .STK- MED ONE Stop: 08/17/17 11:10 Last Admin: 08/17/17 13:32 Dose: 1,000 mg Vancomycin HCl (Vancomycin) Confirm Administered Dose 1 gm .ROUTE .STK-MED ONE Stop: 08/17/17 11:11 Last Admin: 08/17/17 13:27 Dose: 1 gm Vancomycin HCl (Pharmacy To Dose - Vancomycin) 1 dose .XX ASDIRECTED [facility] Stop: 08/17/17 13:00 - Exam Wound/Incisions: Dressing Dry and Intact General: Alert, Cooperative, No Acute Distress Lungs: Normal Respiratory Effort Extremities: Other (Nick's negative for LLE. Left thigh soft. ) - Problem List Review Problem List Initiated/Reviewed/Updated: Yes - My Orders Last 24 Hours: Active Orders 24 hr Category Date Time Status Aspirin [Halfprin] Med 08/18/17 09:00 Active 81 mg PO DAILY Lisinopril [Prinivil] Med 08/18/17 09:00 Active 20 mg PO DAILY Pantoprazole [ProTONIX] Med 08/18/17 09:00 Active 40 mg PO DAILY Pregabalin [Lyrica] Med 08/18/17 11:00 Active 25 mg PO TID Pregabalin [Lyrica] Med 08/18/17 12:00 Active 75 mg PO TID Rivaroxaban [Xarelto] Med 08/18/17 09:00 Active 10 mg PO DAILY Saccharomyces Boulardii [Florastor] Med 08/18/17 09:00 Active 250 mg PO DAILY hydrOXYzine HCl [Atarax] Med 08/18/17 08:00 Active 50 mg PO QAM oxyCODONE Med 08/18/17 21:54 Active 5 mg PO Q6H PRN traMADol [Ultram] Med 08/18/17 22:00 Active 50 - 100 mg PO Q6H PRN Medication Orders Artificial Tears (Isopto Tears 0.5% Ophth Soln) 0 ml EYEBOTH QID [facility] Last Admin: 08/18/17 20:00 Dose: 1 drop Admin: 08/18/17 17:09 Dose: 1 drop Admin: 08/18/17 12:00 Dose: 1 drop Admin: 08/18/17 09:29 Dose: 1 drop Admin: 08/17/17 20:17 Dose: 1 drop Admin: 08/17/17 17:08 Dose: 1 drop Aspirin (Halfprin) 81 mg PO DAILY [facility] Last Admin: 08/18/17 09:30 Dose: 81 mg Bisacodyl (Dulcolax) 5 mg PO DAILY PRN PRN Reason: Constipation Last Admin: 08/18/17 09:31 Dose: 5 mg Docusate Sodium (Colace) 100 mg PO BID [facility] Last Admin: 08/18/17 20:00 Dose: 100 mg Admin: 08/18/17 09:30 Dose: 100 mg Admin: 08/17/17 20:17 Dose: 100 mg Gemfibrozil (Lopid) 600 mg PO BID [facility] Last Admin: 08/18/17 20:00 Dose: 600 mg Admin: 08/18/17 09:30 Dose: 600 mg Admin: 08/17/17 20:16 Dose: 600 mg Hydroxyzine HCl (Atarax) 50 mg PO QAM [facility] Last Admin: 08/18/17 09:30 Dose: 50 mg Hydroxyzine HCl (Atarax) 150 mg PO QPM [facility] Last Admin: 08/18/17 17:09 Dose: 150 mg Admin: 08/18/17 11:52 Dose: Ketorolac Tromethamine (Toradol) 15 mg IVPUSH Q6H PRN PRN Reason: Pain Last Admin: 08/18/17 10:32 Dose: 15 mg Admin: 08/17/17 22:35 Dose: 15 mg Lisinopril (Prinivil) 20 mg PO DAILY [facility] Last Admin: 08/18/17 09:31 Dose: 20 mg Magnesium Hydroxide (Milk Of Magnesia) 30 ml PO BID PRN PRN Reason: Constipation Metformin HCl (Glucophage) 500 mg PO BID [facility] Last Admin: 08/18/17 20:00 Dose: 500 mg Admin: 08/18/17 09:30 Dose: 500 mg Admin: 08/17/17 20:17 Dose: 500 mg Morphine Sulfate (Morphine) 2 mg IVPUSH Q2H PRN PRN Reason: Breakthrough Pain Naloxone HCl (Narcan) 0.1 mg IVPUSH Q5M PRN PRN Reason: Oversedation Nitroglycerin (Nitrostat) 0.4 mg SL Q5M PRN PRN Reason: Chest Pain Nortriptyline HCl (Nortriptyline) 50 mg PO BEDTIME [facility] Last Admin: 08/18/17 20:00 Dose: 50 mg Admin: 08/17/17 20:16 Dose: 50 mg Ondansetron HCl (Zofran) 4 mg IVPUSH Q6H PRN PRN Reason: Nausea/Vomiting Last Admin: 08/18/17 10:23 Dose: 4 mg Oxycodone HCl (Oxycodone) 5 mg PO Q6H PRN PRN Reason: Pain Last Admin: 08/18/17 23:44 Dose: 5 mg Oxycodone/Acetaminophen (Percocet 325-5 Mg) 1 - 2 tab PO Q4H PRN PRN Reason: Pain Last Admin: 08/19/17 08:14 Dose: 2 tab Admin: 08/19/17 04:02 Dose: 2 tab Admin: 08/18/17 19:58 Dose: 2 tab Admin: 08/18/17 15:39 Dose: 2 tab Admin: 08/18/17 11:37 Dose: 2 tab Admin: 08/18/17 09:22 Dose: 2 tab Admin: 08/18/17 04:49 Dose: 2 tab Admin: 08/17/17 22:34 Dose: 2 tab Admin: 08/17/17 15:55 Dose: 2 tab Pantoprazole Sodium (Protonix) 40 mg PO DAILY [facility] Last Admin: 08/18/17 09:30 Dose: 40 mg NfAspercreme ( Trolamine Salicylate /Aloe Vera) 0 each TOP QID PRN PRN Reason: Pain Polyethylene Glycol (Miralax) 17 gm PO Q48H [facility] Last Admin: 08/17/17 17:08 Dose: 17 gm Pregabalin (Lyrica) 25 mg PO TID [facility] Last Admin: 08/18/17 20:00 Dose: 25 mg Admin: 08/18/17 15:02 Dose: 25 mg Admin: 08/18/17 11:58 Dose: 25 mg Pregabalin (Lyrica) 75 mg PO TID [facility] Last Admin: 08/18/17 20:00 Dose: 75 mg Admin: 08/18/17 15:02 Dose: 75 mg Admin: 08/18/17 14:26 Dose: Not Given Rivaroxaban (Xarelto) 10 mg PO DAILY [facility] Last Admin: 08/18/17 09:31 Dose: 10 mg Saccharomyces Boulardii (Florastor) 250 mg PO DAILY [facility] Last Admin: 08/18/17 09:30 Dose: 250 mg Senna (Senna) 8.6 mg PO BID PRN PRN Reason: Constipation Tramadol HCl (Ultram) 50 - 100 mg PO Q6H PRN PRN Reason: Pain Last Admin: 08/19/17 05:39 Dose: 100 mg Admin: 08/18/17 22:26 Dose: 100 mg Trazodone HCl (Trazodone) 100 mg PO BEDTIME [facility] Last Admin: 08/18/17 20:00 Dose: 100 mg Admin: 08/17/17 20:16 Dose: 100 mg - Assessment Assessment (Free Text/Narrative):: POD#2 - left TKA - Plan Plan (Free Text/Narrative):: 1. Discharge to [place] tomorrow for continued therapy. 2. Xarelto, frequent mobility, SCDs, TEDs for VTE prophylaxis. 3. Further orders per Hospitalist service. 4. Added Ultram and Flexeril to pain management regimen. The pt's case was discussed with Dr. Walsh.
--- NOTE | 2017-08-19 11:23 | PCM.CONSN ---
- General Info Date of Service: 08/19/17 Admission Dx/Problem (Free Text): Admission Diagnosis/Problem Admission Diagnosis/Problem Osteoarthritis of knee Subjective Update: Follow Up Functional Status: Reports: Pain Controlled, Tolerating Diet, Ambulating, Urinating - Review of Systems General: Denies: Fever, Weakness, Fatigue, Malaise, Chills HEENT: Reports: No Symptoms Pulmonary: Denies: Shortness of Breath Cardiovascular: Denies: Chest Pain, Dyspnea on Exertion Gastrointestinal: Denies: Abdominal Pain, Constipation, Nausea, Vomiting Genitourinary: Reports: No Symptoms Musculoskeletal: Reports: No Symptoms Skin: Reports: No Symptoms Neurological: Reports: Difficulty Walking, Gait Disturbance. Denies: Confusion , Weakness Psychiatric: Denies: Depression, Anxiety, Agitation, Hallucinations Systems Review Comment:: No overnight or acute issues. She slept pretty good. Her pain was not controlled but her pain medication had been modified. She has no other acute issues. her vitals are fairly stable. - Patient Data Vitals - Most Recent: Last Vital Signs Temp 36.4 C 08/19/17 03:19 Pulse 86 08/19/17 03:19 Resp 18 08/19/17 03:19 BP 119/76 08/19/17 08:20 Pulse Ox 97 08/19/17 06:13 Weight - Most Recent: 84.323 kg I&O - Last 24 Hours: Intake & Output 08/18/17 08/19/17 08/19/17 22:59 06:59 14:59 Intake Total 1950 200 200 Output Total 1950 1000 Balance 0 -800 200 Lab Results Last 24 Hours: Laboratory Results - last 24 hr 08/19/17 Range/Units 07:24 POC Glucose 150 H (70-105) mg/dL Med Orders - Current: Current Medications Artificial Tears (Isopto Tears 0.5% Ophth Soln) 0 ml EYEBOTH QID [facility] Last Admin: 08/19/17 08:20 Dose: 1 drop Aspirin (Halfprin) 81 mg PO DAILY [facility] Last Admin: 08/19/17 08:20 Dose: 81 mg Bisacodyl (Dulcolax) 5 mg PO DAILY PRN PRN Reason: Constipation Last Admin: 08/18/17 09:31 Dose: 5 mg Cyclobenzaprine HCl (Flexeril) 10 mg PO TID PRN PRN Reason: Spasms Last Admin: 08/19/17 10:37 Dose: 10 mg Docusate Sodium (Colace) 100 mg PO BID [facility] Last Admin: 08/19/17 08:21 Dose: 100 mg Gemfibrozil (Lopid) 600 mg PO BID [facility] Last Admin: 08/19/17 08:21 Dose: 600 mg Hydroxyzine HCl (Atarax) 50 mg PO QAM [facility] Last Admin: 08/19/17 08:21 Dose: 50 mg Hydroxyzine HCl (Atarax) 150 mg PO QPM [facility] Last Admin: 08/18/17 17:09 Dose: 150 mg Ketorolac Tromethamine (Toradol) 15 mg IVPUSH Q6H PRN PRN Reason: Pain Last Admin: 08/18/17 10:32 Dose: 15 mg Lisinopril (Prinivil) 20 mg PO DAILY [facility] Last Admin: 08/19/17 08:20 Dose: 20 mg Magnesium Hydroxide (Milk Of Magnesia) 30 ml PO BID PRN PRN Reason: Constipation Metformin HCl (Glucophage) 500 mg PO BID [facility] Last Admin: 08/19/17 08:21 Dose: 500 mg Morphine Sulfate (Morphine) 2 mg IVPUSH Q2H PRN PRN Reason: Breakthrough Pain Naloxone HCl (Narcan) 0.1 mg IVPUSH Q5M PRN PRN Reason: Oversedation Nitroglycerin (Nitrostat) 0.4 mg SL Q5M PRN PRN Reason: Chest Pain Nortriptyline HCl (Nortriptyline) 50 mg PO BEDTIME [facility] Last Admin: 08/18/17 20:00 Dose: 50 mg Ondansetron HCl (Zofran) 4 mg IVPUSH Q6H PRN PRN Reason: Nausea/Vomiting Last Admin: 08/18/17 10:23 Dose: 4 mg Oxycodone HCl (Oxycodone) 5 mg PO Q6H PRN PRN Reason: Pain Last Admin: 08/18/17 23:44 Dose: 5 mg Oxycodone/Acetaminophen (Percocet 325-5 Mg) 1 - 2 tab PO Q4H PRN PRN Reason: Pain Last Admin: 08/19/17 08:14 Dose: 2 tab Pantoprazole Sodium (Protonix) 40 mg PO DAILY [facility] Last Admin: 08/19/17 08:20 Dose: 40 mg NfAspercreme ( Trolamine Salicylate /Aloe Vera) 0 each TOP QID PRN PRN Reason: Pain Polyethylene Glycol (Miralax) 17 gm PO Q48H [facility] Last Admin: 08/17/17 17:08 Dose: 17 gm Pregabalin (Lyrica) 25 mg PO TID [facility] Last Admin: 08/19/17 08:21 Dose: 25 mg Pregabalin (Lyrica) 75 mg PO TID [facility] Last Admin: 08/19/17 08:20 Dose: 75 mg Rivaroxaban (Xarelto) 10 mg PO DAILY [facility] Last Admin: 08/19/17 08:20 Dose: 10 mg Saccharomyces Boulardii (Florastor) 250 mg PO DAILY [facility] Last Admin: 08/19/17 08:20 Dose: 250 mg Senna (Senna) 8.6 mg PO BID PRN PRN Reason: Constipation Tramadol HCl (Ultram) 50 - 100 mg PO Q6H PRN PRN Reason: Pain Last Admin: 08/19/17 05:39 Dose: 100 mg Trazodone HCl (Trazodone) 100 mg PO BEDTIME [facility] Last Admin: 08/18/17 20:00 Dose: 100 mg Discontinued Medications Albuterol (Proventil Neb Soln) 2.5 mg NEB ONETIME [facility] Stop: 07/27/17 16:00 Bupivacaine HCl (Marcaine 0.25%) Confirm Administered Dose 30 ml .ROUTE .STK- MED ONE Stop: 08/17/17 11:11 Last Admin: 08/17/17 13:25 Dose: 30 ml Cefazolin Sodium (Ancef) Confirm Administered Dose 2 gm .ROUTE .STK-MED ONE Stop: 08/17/17 11:11 Last Admin: 08/17/17 13:19 Dose: 2 gm Morphine Sulfate 8 mg/Epinephrine HCl 0.3 mg/Cefuroxime Sodium 750 mg/Ketorolac Tromethamine 30 mg/Sodium Chloride 27.9 ml 0 mg .XX ONETIME ONE Stop: 08/17/17 12:31 Last Admin: 08/17/17 16:59 Dose: Not Given Epinephrine HCl (Adrenalin) Confirm Administered Dose 1 mg .ROUTE .STK-MED ONE Stop: 08/17/17 13:28 Famotidine (Pepcid) 20 mg PO Q12H [facility] Fentanyl (Sublimaze) Confirm Administered Dose 100 mcg .ROUTE .STK-MED ONE Stop: 08/17/17 10:44 Fentanyl (Sublimaze) Confirm Administered Dose 250 mcg .ROUTE .STK-MED ONE Stop: 08/17/17 12:26 Fentanyl (Sublimaze) 50 mcg IVPUSH Q5M PRN PRN Reason: pain Stop: 08/17/17 16:00 Last Admin: 08/17/17 14:17 Dose: 50 mcg Fentanyl (Sublimaze) Confirm Administered Dose 100 mcg .ROUTE .STK-MED ONE Stop: 08/17/17 14:17 Last Admin: 08/17/17 16:59 Dose: Not Given Hydromorphone HCl (Dilaudid) Confirm Administered Dose 0.5 mg .ROUTE .STK-MED ONE Stop: 08/17/17 12:02 Hydromorphone HCl (Dilaudid) Confirm Administered Dose 0.5 mg .ROUTE .STK-MED ONE Stop: 08/17/17 14:01 Hydromorphone HCl (Dilaudid) 0.5 mg IVPUSH ONETIME ONE Stop: 08/17/17 14:11 Last Admin: 08/17/17 14:36 Dose: 0.5 mg Lactated Ringer's (Ringers, Lactated) 1,000 mls @ 125 mls/hr IV ASDIRECTED [facility] Stop: 07/27/17 23:00 Lactated Ringer's (Ringers, Lactated) 1,000 mls @ 125 mls/hr IV ASDIRECTED [facility] Stop: 08/17/17 23:00 Last Admin: 08/17/17 11:20 Dose: 125 mls/hr Cefazolin Sodium/Dextrose 2 gm (/ Premix) 50 mls @ 100 mls/hr IV Q8H [facility] Stop: 08/18/17 12:29 Last Admin: 08/18/17 12:00 Dose: 100 mls/hr Vancomycin HCl 1 gm/ Sodium (Chloride) 250 mls @ 250 mls/hr IV ONETIME ONE Stop: 08/17/17 13:29 Last Admin: 08/17/17 17:21 Dose: Not Given Lactated Ringer's (Ringers, Lactated) Confirm Administered Dose 1,000 mls @ as directed .ROUTE .STK-MED ONE Stop: 08/17/17 13:59 Lidocaine HCl (Xylocaine-Mpf 1%) Confirm Administered Dose 2 mls @ as directed .ROUTE .STK-MED ONE Stop: 08/17/17 14:11 Iodine (Iodine 2% Mild Tincture) Confirm Administered Dose 30 ml .ROUTE .STK- MED ONE Stop: 08/17/17 11:11 Last Admin: 08/17/17 13:17 Dose: 18 ml Lidocaine/Sodium Bicarbonate (Buffered Lidocaine 1% In Ns 8.4%) 0.25 ml IDERM ONETIME PRN PRN Reason: Prior to IV Start Stop: 07/27/17 18:00 Lidocaine/Sodium Bicarbonate (Buffered Lidocaine 1% In Ns 8.4%) 0.25 ml IDERM ONETIME PRN PRN Reason: Prior to IV Start Stop: 08/17/17 18:00 Last Admin: 08/17/17 11:19 Dose: 0.25 ml Midazolam HCl (Versed 1 Mg/Ml) Confirm Administered Dose 2 mg .ROUTE .STK-MED ONE Stop: 08/17/17 12:06 Ondansetron HCl (Zofran) Confirm Administered Dose 4 mg .ROUTE .STK-MED ONE Stop: 08/17/17 12:27 Ondansetron HCl (Zofran) 4 mg IVPUSH ONETIME PRN PRN Reason: Nausea/Vomiting Stop: 08/17/17 17:00 Pregabalin (Lyrica) 100 mg PO TID [facility] Last Admin: 08/18/17 14:27 Dose: Not Given Pregabalin (Lyrica) 75 mg PO TID [facility] Last Admin: 08/18/17 12:00 Dose: 75 mg Propofol (Diprivan 20 Ml) Confirm Administered Dose 200 mg .ROUTE .STK-MED ONE Stop: 08/17/17 10:44 Propofol (Diprivan 20 Ml) Confirm Administered Dose 200 mg .ROUTE .STK-MED ONE Stop: 08/17/17 10:47 Rocuronium [place] (Zemuron) Confirm Administered Dose 50 mg .ROUTE .STK-MED ONE Stop: 08/17/17 12:01 Ropivacaine (Naropin 0.5%) Confirm Administered Dose 30 ml .ROUTE .STK-MED ONE Stop: 08/17/17 13:28 Scopolamine (Transderm-Scop) 1.5 mg TOP ONETIME [facility] Stop: 07/27/17 16:00 Scopolamine (Transderm-Scop) 1.5 mg TRDERM ONETIME [facility] Stop: 08/17/17 18:00 Last Admin: 08/17/17 11:48 Dose: 1.5 mg Sodium Chloride (Saline Flush) 10 ml FLUSH ASDIRECTED PRN PRN Reason: Keep Vein Open Stop: 07/27/17 18:00 Sodium Chloride (Saline Flush) 10 ml FLUSH ASDIRECTED PRN PRN Reason: Keep Vein Open Stop: 08/17/17 18:00 Tramadol HCl (Ultram) 50 mg PO Q6H PRN PRN Reason: Pain Tramadol HCl (Ultram) 1 - 2 mg PO Q6H PRN PRN Reason: Pain Tranexamic Acid (Cyklokapron) Confirm Administered Dose 1,000 mg .ROUTE .STK- MED ONE Stop: 08/17/17 11:10 Last Admin: 08/17/17 13:32 Dose: 1,000 mg Vancomycin HCl (Vancomycin) Confirm Administered Dose 1 gm .ROUTE .STK-MED ONE Stop: 08/17/17 11:11 Last Admin: 08/17/17 13:27 Dose: 1 gm Vancomycin HCl (Pharmacy To Dose - Vancomycin) 1 dose .XX ASDIRECTED [facility] Stop: 08/17/17 13:00 - Exam General: Alert, Oriented, Cooperative, No Acute Distress HEENT: Pupils Equal, Pupils Reactive, EOMI, Mucous Membr. Moist/[place] Neck: Supple, Trachea Midline, No JVD, No Thyromegaly Lungs: Clear to Auscultation, Normal Respiratory Effort Cardiovascular: Regular Rate, Regular Rhythm GI/Abdominal Exam: Normal Bowel Sounds, Soft, Non-Tender, No Organomegaly, No Distention, No Abnormal Bruit, No Mass (Female) Exam: Deferred Back Exam: Normal Inspection, Decreased Range of Motion Extremities: Normal Inspection, Normal Range of Motion, Non-Tender, No Pedal Edema, Normal Capillary Refill Peripheral Pulses: 2+: Dorsalis Pedis (L), Dorsalis Pedis (R) Skin: Warm, Dry, Intact Wound/Incisions: Healing Well, Dressing Dry and Intact, No Drainage Neurological: No New Focal Deficit. No: Normal Gait Psy/Mental Status: Alert, Normal Affect, Normal Mood Consult PN Assessment/Plan POD#: 2 Procedures: Procedures ARTHROSCOP ROTATOR CUFF REPR (12/13/13) ASSAY OF PROTEIN OTHER (10/30/16) BODY FLUID CELL COUNT (10/30/16) BONE IMAGING WHOLE BODY (06/26/15) C-REACTIVE PROTEIN (07/02/15) COMPLETE CBC W/AUTO DIFF WBC (07/02/15) COMPREHEN METABOLIC PANEL (05/30/14) CT HEAD/BRAIN W/O DYE (05/30/14) ELECTROCARDIOGRAM TRACING (10/30/16) EMERGENCY DEPT VISIT (04/06/16) EMERGENCY DEPT VISIT (08/17/15) EMERGENCY DEPT VISIT (08/05/15) EMERGENCY DEPT VISIT (06/08/15) EMERGENCY DEPT VISIT (11/28/14) EMERGENCY DEPT VISIT (08/31/13) EMERGENCY DEPT VISIT (08/11/13) EXAM SYNOVIAL FLUID CRYSTALS (10/30/16) EXTRACRANIAL BILAT STUDY (06/02/14) GLUCOSE BLOOD TEST (10/30/16) GLUCOSE OTHER FLUID (10/30/16) HYDRATE IV INFUSION ADD-ON (04/06/16) KNEE ARTHROSCOPY/SURGERY (10/30/16) MED NUTRITION INDIV SUBSEQ (07/26/14) MEDICAL NUTRITION INDIV IN (12/25/16) MRI JNT OF LWR EXTRE W/O DYE (03/06/17) MRI JOINT UPR EXTREM W/O DYE (09/22/13) MRI LUMBAR SPINE W/O DYE (06/26/15) OT EVAL LOW COMPLEX 30 MIN (07/14/17) PROTHROMBIN TIME (05/30/14) RBC SED RATE AUTOMATED (07/02/15) ROUTINE VENIPUNCTURE (07/02/15) SHOULDER ARTHROSCOPY/SURGERY (12/13/13) SHOULDER ARTHROSCOPY/SURGERY (12/13/13) SHOULDER ARTHROSCOPY/SURGERY (12/13/13) SHOULDER ARTHROSCOPY/SURGERY (12/13/13) THER/PROPH/DIAG INJ IV PUSH (04/06/16) THER/PROPH/DIAG INJ SC/IM (04/06/16) THERAPEUTIC ACTIVITIES (07/14/17) THROMBOPLASTIN TIME PARTIAL (05/30/14) TX/PRO/DX INJ NEW DRUG ADDON (04/06/16) TX/PRO/DX INJ SAME DRUG WELFARE SUPERVISOR (11/28/14) URINALYSIS AUTO W/SCOPE (03/22/14) US EXAM OF HEAD AND NECK (06/02/14) X-RAY EXAM HIP UNI 2-3 VIEWS (12/31/16) X-RAY EXAM L-S SPINE 2/3 VWS (12/31/16) X-RAY EXAM OF KNEE 1 OR 2 (12/10/16) X-RAY EXAM OF KNEE 3 (02/03/17) X-RAY EXAM OF KNEES (12/10/16) X-RAY EXAM OF PELVIS (12/31/16) X-RAY EXAM OF SHOULDER (02/20/14) Problem List Initiated/Reviewed/Updated: Yes Plan: Assessment/Plan: Acute: S/P left total knee arthroplasty - post-operative day 2, stable -DVT prophylaxis and pain management per primary care team -Continue PT/OT/IS/RT -Monitor oxygen saturation -Titrate oxygen as needed -Vital signs remains stable Osteoarthritis of left knee -Pain management per primary care team Chronic: Type II DM, Stable BS complex regional pain syndrome osteoarthritis positive MRSA screen asthma hypertension murmurs history of PE depression anxiety GERD HTN HLD hx of seizures Plan: Continue current treatment CM for discharge planning GI prophylaxis Other orders as listed above She is a full code. Her PCP is Dr. Kidd. Joann remains stable. She continues to work with PT/OT. Plan is to discharge to [facility] after her stay. No concerns from a hospitalist standpoint. We are now signing off her case. Please feel free to re-consult for any questions and concerns.
[2017-08-19] MEDS: Polyethylene Glycol 3350 Powder 17 GM Packet PO SCH (17:52)
[2017-08-19] MEDS: Nortriptyline 25 MG Cap PO SCH (21:42)
[2017-08-19] MEDS: traZODone 50 MG Tab PO SCH (21:42)
[2017-08-20] MEDS: Acetaminophen/oxyCODONE 325-5 MG Tab PO PRN ×3 (02:45→10:00)
--- NOTE | 2017-08-20 07:00 | PCM.SURGPN ---
- General Info Date of Service: 08/20/17 POD#: 3 Functional Status: Reports: Pain Controlled, Tolerating Diet, Ambulating, Urinating, Incentive Spirometry, Other (Pt states she is doing well and prepared for discharge to [facility] for continued therapy.) - Patient Data Vitals - Most Recent: Last Vital Signs Temp 96.6 F 08/20/17 04:12 Pulse 84 08/20/17 04:12 Resp 15 08/20/17 04:12 BP 126/85 08/20/17 04:12 Pulse Ox 95 08/20/17 04:12 Weight - Most Recent: 185 lb 6.4 oz I&O - Last 24 Hours: Intake & Output 08/19/17 08/19/17 08/20/17 14:59 22:59 06:59 Intake Total 200 920 700 Output Total 1500 700 Balance 200 -580 0 Lab Results Last 24 Hrs: Laboratory Results - last 24 hr 08/19/17 08/19/17 08/20/17 Range/Units 07:24 12:20 06:11 POC Glucose 150 H 103 182 H (70-105) mg/dL Med Orders - Current: Current Medications Artificial Tears (Isopto Tears 0.5% Ophth Soln) 0 ml EYEBOTH QID ON LICENSE OF [facility] Last Admin: 08/19/17 21:43 Dose: 1 drop Aspirin (Halfprin) 81 mg PO DAILY ON LICENSE OF [facility] Last Admin: 08/19/17 08:20 Dose: 81 mg Bisacodyl (Dulcolax) 5 mg PO DAILY PRN PRN Reason: Constipation Last Admin: 08/18/17 09:31 Dose: 5 mg Cyclobenzaprine HCl (Flexeril) 10 mg PO TID PRN PRN Reason: Spasms Last Admin: 08/19/17 10:37 Dose: 10 mg Docusate Sodium (Colace) 100 mg PO BID ON LICENSE OF [facility] Last Admin: 08/19/17 21:42 Dose: 100 mg Gemfibrozil (Lopid) 600 mg PO BID ON LICENSE OF [facility] Last Admin: 08/19/17 21:43 Dose: 600 mg Hydroxyzine HCl (Atarax) 50 mg PO QAM ON LICENSE OF [facility] Last Admin: 08/19/17 08:21 Dose: 50 mg Hydroxyzine HCl (Atarax) 150 mg PO QPM ON LICENSE OF [facility] Last Admin: 08/19/17 17:52 Dose: 150 mg Ketorolac Tromethamine (Toradol) 15 mg IVPUSH Q6H PRN PRN Reason: Pain Last Admin: 08/18/17 10:32 Dose: 15 mg Lisinopril (Prinivil) 20 mg PO DAILY ON LICENSE OF [facility] Last Admin: 08/19/17 08:20 Dose: 20 mg Magnesium Hydroxide (Milk Of Magnesia) 30 ml PO BID PRN PRN Reason: Constipation Last Admin: 08/20/17 06:12 Dose: 30 ml Metformin HCl (Glucophage) 500 mg PO BID ON LICENSE OF [facility] Last Admin: 08/19/17 21:42 Dose: 500 mg Morphine Sulfate (Morphine) 2 mg IVPUSH Q2H PRN PRN Reason: Breakthrough Pain Naloxone HCl (Narcan) 0.1 mg IVPUSH Q5M PRN PRN Reason: Oversedation Nitroglycerin (Nitrostat) 0.4 mg SL Q5M PRN PRN Reason: Chest Pain Nortriptyline HCl (Nortriptyline) 50 mg PO BEDTIME ON LICENSE OF [facility] Last Admin: 08/19/17 21:42 Dose: 50 mg Ondansetron HCl (Zofran) 4 mg IVPUSH Q6H PRN PRN Reason: Nausea/Vomiting Last Admin: 08/18/17 10:23 Dose: 4 mg Oxycodone HCl (Oxycodone) 5 mg PO Q6H PRN PRN Reason: Pain Last Admin: 08/18/17 23:44 Dose: 5 mg Oxycodone/Acetaminophen (Percocet 325-5 Mg) 1 - 2 tab PO Q4H PRN PRN Reason: Pain Last Admin: 08/20/17 06:12 Dose: 2 tab Pantoprazole Sodium (Protonix) 40 mg PO DAILY ON LICENSE OF [facility] Last Admin: 08/19/17 08:20 Dose: 40 mg NfAspercreme ( Trolamine Salicylate /Aloe Vera) 0 each TOP QID PRN PRN Reason: Pain Polyethylene Glycol (Miralax) 17 gm PO Q48H ON LICENSE OF [facility] Last Admin: 08/19/17 17:52 Dose: 17 gm Pregabalin (Lyrica) 25 mg PO TID ON LICENSE OF [facility] Last Admin: 08/19/17 21:42 Dose: 25 mg Pregabalin (Lyrica) 75 mg PO TID ON LICENSE OF [facility] Last Admin: 08/19/17 21:43 Dose: 75 mg Rivaroxaban (Xarelto) 10 mg PO DAILY ON LICENSE OF [facility] Last Admin: 08/19/17 08:20 Dose: 10 mg Saccharomyces Boulardii (Florastor) 250 mg PO DAILY ON LICENSE OF [facility] Last Admin: 08/19/17 08:20 Dose: 250 mg Senna (Senna) 8.6 mg PO BID PRN PRN Reason: Constipation Tramadol HCl (Ultram) 50 - 100 mg PO Q6H PRN PRN Reason: Pain Last Admin: 08/19/17 12:16 Dose: 100 mg Trazodone HCl (Trazodone) 100 mg PO BEDTIME ON LICENSE OF [facility] Last Admin: 08/19/17 21:42 Dose: 100 mg Discontinued Medications Albuterol (Proventil Neb Soln) 2.5 mg NEB ONETIME ON LICENSE OF [facility] Stop: 07/27/17 16:00 Bupivacaine HCl (Marcaine 0.25%) Confirm Administered Dose 30 ml .ROUTE .STK- MED ONE Stop: 08/17/17 11:11 Last Admin: 08/17/17 13:25 Dose: 30 ml Cefazolin Sodium (Ancef) Confirm Administered Dose 2 gm .ROUTE .STK-MED ONE Stop: 08/17/17 11:11 Last Admin: 08/17/17 13:19 Dose: 2 gm Morphine Sulfate 8 mg/Epinephrine HCl 0.3 mg/Cefuroxime Sodium 750 mg/Ketorolac Tromethamine 30 mg/Sodium Chloride 27.9 ml 0 mg .XX ONETIME ONE Stop: 08/17/17 12:31 Last Admin: 08/17/17 16:59 Dose: Not Given Epinephrine HCl (Adrenalin) Confirm Administered Dose 1 mg .ROUTE .STK-MED ONE Stop: 08/17/17 13:28 Famotidine (Pepcid) 20 mg PO Q12H ON LICENSE OF [facility] Fentanyl (Sublimaze) Confirm Administered Dose 100 mcg .ROUTE .STK-MED ONE Stop: 08/17/17 10:44 Fentanyl (Sublimaze) Confirm Administered Dose 250 mcg .ROUTE .STK-MED ONE Stop: 08/17/17 12:26 Fentanyl (Sublimaze) 50 mcg IVPUSH Q5M PRN PRN Reason: pain Stop: 08/17/17 16:00 Last Admin: 08/17/17 14:17 Dose: 50 mcg Fentanyl (Sublimaze) Confirm Administered Dose 100 mcg .ROUTE .STK-MED ONE Stop: 08/17/17 14:17 Last Admin: 08/17/17 16:59 Dose: Not Given Hydromorphone HCl (Dilaudid) Confirm Administered Dose 0.5 mg .ROUTE .STK-MED ONE Stop: 08/17/17 12:02 Hydromorphone HCl (Dilaudid) Confirm Administered Dose 0.5 mg .ROUTE .STK-MED ONE Stop: 08/17/17 14:01 Hydromorphone HCl (Dilaudid) 0.5 mg IVPUSH ONETIME ONE Stop: 08/17/17 14:11 Last Admin: 08/17/17 14:36 Dose: 0.5 mg Lactated Ringer's (Ringers, Lactated) 1,000 mls @ 125 mls/hr IV ASDIRECTED ON LICENSE OF [facility] Stop: 07/27/17 23:00 Lactated Ringer's (Ringers, Lactated) 1,000 mls @ 125 mls/hr IV ASDIRECTED ON LICENSE OF [facility] Stop: 08/17/17 23:00 Last Admin: 08/17/17 11:20 Dose: 125 mls/hr Cefazolin Sodium/Dextrose 2 gm (/ Premix) 50 mls @ 100 mls/hr IV Q8H ON LICENSE OF [facility] Stop: 08/18/17 12:29 Last Admin: 08/18/17 12:00 Dose: 100 mls/hr Vancomycin HCl 1 gm/ Sodium (Chloride) 250 mls @ 250 mls/hr IV ONETIME ONE Stop: 08/17/17 13:29 Last Admin: 08/17/17 17:21 Dose: Not Given Lactated Ringer's (Ringers, Lactated) Confirm Administered Dose 1,000 mls @ as directed .ROUTE .STK-MED ONE Stop: 08/17/17 13:59 Lidocaine HCl (Xylocaine-Mpf 1%) Confirm Administered Dose 2 mls @ as directed .ROUTE .STK-MED ONE Stop: 08/17/17 14:11 Iodine (Iodine 2% Mild Tincture) Confirm Administered Dose 30 ml .ROUTE .STK- MED ONE Stop: 08/17/17 11:11 Last Admin: 08/17/17 13:17 Dose: 18 ml Lidocaine/Sodium Bicarbonate (Buffered Lidocaine 1% In Ns 8.4%) 0.25 ml IDERM ONETIME PRN PRN Reason: Prior to IV Start Stop: 07/27/17 18:00 Lidocaine/Sodium Bicarbonate (Buffered Lidocaine 1% In Ns 8.4%) 0.25 ml IDERM ONETIME PRN PRN Reason: Prior to IV Start Stop: 08/17/17 18:00 Last Admin: 08/17/17 11:19 Dose: 0.25 ml Midazolam HCl (Versed 1 Mg/Ml) Confirm Administered Dose 2 mg .ROUTE .STK-MED ONE Stop: 08/17/17 12:06 Ondansetron HCl (Zofran) Confirm Administered Dose 4 mg .ROUTE .STK-MED ONE Stop: 08/17/17 12:27 Ondansetron HCl (Zofran) 4 mg IVPUSH ONETIME PRN PRN Reason: Nausea/Vomiting Stop: 08/17/17 17:00 Pregabalin (Lyrica) 100 mg PO TID ON LICENSE OF [facility] Last Admin: 08/18/17 14:27 Dose: Not Given Pregabalin (Lyrica) 75 mg PO TID ON LICENSE OF [facility] Last Admin: 08/18/17 12:00 Dose: 75 mg Propofol (Diprivan 20 Ml) Confirm Administered Dose 200 mg .ROUTE .STK-MED ONE Stop: 08/17/17 10:44 Propofol (Diprivan 20 Ml) Confirm Administered Dose 200 mg .ROUTE .STK-MED ONE Stop: 08/17/17 10:47 Rocuronium [place] (Zemuron) Confirm Administered Dose 50 mg .ROUTE .STK-MED ONE Stop: 08/17/17 12:01 Ropivacaine (Naropin 0.5%) Confirm Administered Dose 30 ml .ROUTE .STK-MED ONE Stop: 08/17/17 13:28 Scopolamine (Transderm-Scop) 1.5 mg TOP ONETIME ON LICENSE OF [facility] Stop: 07/27/17 16:00 Scopolamine (Transderm-Scop) 1.5 mg TRDERM ONETIME ON LICENSE OF [facility] Stop: 08/17/17 18:00 Last Admin: 08/17/17 11:48 Dose: 1.5 mg Sodium Chloride (Saline Flush) 10 ml FLUSH ASDIRECTED PRN PRN Reason: Keep Vein Open Stop: 07/27/17 18:00 Sodium Chloride (Saline Flush) 10 ml FLUSH ASDIRECTED PRN PRN Reason: Keep Vein Open Stop: 08/17/17 18:00 Tramadol HCl (Ultram) 50 mg PO Q6H PRN PRN Reason: Pain Tramadol HCl (Ultram) 1 - 2 mg PO Q6H PRN PRN Reason: Pain Tranexamic Acid (Cyklokapron) Confirm Administered Dose 1,000 mg .ROUTE .STK- MED ONE Stop: 08/17/17 11:10 Last Admin: 08/17/17 13:32 Dose: 1,000 mg Vancomycin HCl (Vancomycin) Confirm Administered Dose 1 gm .ROUTE .STK-MED ONE Stop: 08/17/17 11:11 Last Admin: 08/17/17 13:27 Dose: 1 gm Vancomycin HCl (Pharmacy To Dose - Vancomycin) 1 dose .XX ASDIRECTED ON LICENSE OF [facility] Stop: 08/17/17 13:00 - Exam Wound/Incisions: Dressing Dry and Intact General: Alert, Cooperative, No Acute Distress, Other (Pt was resting comfortably in chair this morning.) Extremities: Other (Mod swelling left knee. Pt was able to sense light touch at LLE. Nick's negative.) - Problem List Review Problem List Initiated/Reviewed/Updated: Yes - My Orders Last 24 Hours: Active Orders 24 hr Category Date Time Status Ready for Discharge [RC] PER UNIT ROUTINE Care 08/20/17 06:45 Active Cyclobenzaprine [Flexeril] Med 08/19/17 08:26 Active 10 mg PO TID PRN Medication Orders Artificial Tears (Isopto Tears 0.5% Ophth Soln) 0 ml EYEBOTH QID ON LICENSE OF [facility] Last Admin: 08/19/17 21:43 Dose: 1 drop Admin: 08/19/17 17:55 Dose: 1 drop Admin: 08/19/17 12:16 Dose: 1 drop Admin: 08/19/17 08:20 Dose: 1 drop Admin: 08/18/17 20:00 Dose: 1 drop Admin: 08/18/17 17:09 Dose: 1 drop Admin: 08/18/17 12:00 Dose: 1 drop Admin: 08/18/17 09:29 Dose: 1 drop Admin: 08/17/17 20:17 Dose: 1 drop Admin: 08/17/17 17:08 Dose: 1 drop Aspirin (Halfprin) 81 mg PO DAILY ON LICENSE OF [facility] Last Admin: 08/19/17 08:20 Dose: 81 mg Admin: 08/18/17 09:30 Dose: 81 mg Bisacodyl (Dulcolax) 5 mg PO DAILY PRN PRN Reason: Constipation Last Admin: 08/18/17 09:31 Dose: 5 mg Cyclobenzaprine HCl (Flexeril) 10 mg PO TID PRN PRN Reason: Spasms Last Admin: 08/19/17 10:37 Dose: 10 mg Docusate Sodium (Colace) 100 mg PO BID ON LICENSE OF [facility] Last Admin: 08/19/17 21:42 Dose: 100 mg Admin: 08/19/17 08:21 Dose: 100 mg Admin: 08/18/17 20:00 Dose: 100 mg Admin: 08/18/17 09:30 Dose: 100 mg Admin: 08/17/17 20:17 Dose: 100 mg Gemfibrozil (Lopid) 600 mg PO BID ON LICENSE OF [facility] Last Admin: 08/19/17 21:43 Dose: 600 mg Admin: 08/19/17 08:21 Dose: 600 mg Admin: 08/18/17 20:00 Dose: 600 mg Admin: 08/18/17 09:30 Dose: 600 mg Admin: 08/17/17 20:16 Dose: 600 mg Hydroxyzine HCl (Atarax) 50 mg PO QAM ON LICENSE OF [facility] Last Admin: 08/19/17 08:21 Dose: 50 mg Admin: 08/18/17 09:30 Dose: 50 mg Hydroxyzine HCl (Atarax) 150 mg PO QPM ON LICENSE OF [facility] Last Admin: 08/19/17 17:52 Dose: 150 mg Admin: 08/18/17 17:09 Dose: 150 mg Admin: 08/18/17 11:52 Dose: Ketorolac Tromethamine (Toradol) 15 mg IVPUSH Q6H PRN PRN Reason: Pain Last Admin: 08/18/17 10:32 Dose: 15 mg Admin: 08/17/17 22:35 Dose: 15 mg Lisinopril (Prinivil) 20 mg PO DAILY ON LICENSE OF [facility] Last Admin: 08/19/17 08:20 Dose: 20 mg Admin: 08/18/17 09:31 Dose: 20 mg Magnesium Hydroxide (Milk Of Magnesia) 30 ml PO BID PRN PRN Reason: Constipation Last Admin: 08/20/17 06:12 Dose: 30 ml Metformin HCl (Glucophage) 500 mg PO BID ON LICENSE OF [facility] Last Admin: 08/19/17 21:42 Dose: 500 mg Admin: 08/19/17 08:21 Dose: 500 mg Admin: 08/18/17 20:00 Dose: 500 mg Admin: 08/18/17 09:30 Dose: 500 mg Admin: 08/17/17 20:17 Dose: 500 mg Morphine Sulfate (Morphine) 2 mg IVPUSH Q2H PRN PRN Reason: Breakthrough Pain Naloxone HCl (Narcan) 0.1 mg IVPUSH Q5M PRN PRN Reason: Oversedation Nitroglycerin (Nitrostat) 0.4 mg SL Q5M PRN PRN Reason: Chest Pain Nortriptyline HCl (Nortriptyline) 50 mg PO BEDTIME [facility] Last Admin: 08/19/17 21:42 Dose: 50 mg Admin: 08/18/17 20:00 Dose: 50 mg Admin: 08/17/17 20:16 Dose: 50 mg Ondansetron HCl (Zofran) 4 mg IVPUSH Q6H PRN PRN Reason: Nausea/Vomiting Last Admin: 08/18/17 10:23 Dose: 4 mg Oxycodone HCl (Oxycodone) 5 mg PO Q6H PRN PRN Reason: Pain Last Admin: 08/18/17 23:44 Dose: 5 mg Oxycodone/Acetaminophen (Percocet 325-5 Mg) 1 - 2 tab PO Q4H PRN PRN Reason: Pain Last Admin: 08/20/17 06:12 Dose: 2 tab Admin: 08/20/17 02:45 Dose: 2 tab Admin: 08/19/17 21:42 Dose: 2 tab Admin: 08/19/17 17:52 Dose: 2 tab Admin: 08/19/17 13:42 Dose: 2 tab Admin: 08/19/17 08:14 Dose: 2 tab Admin: 08/19/17 04:02 Dose: 2 tab Admin: 08/18/17 19:58 Dose: 2 tab Admin: 08/18/17 15:39 Dose: 2 tab Admin: 08/18/17 11:37 Dose: 2 tab Admin: 08/18/17 09:22 Dose: 2 tab Admin: 08/18/17 04:49 Dose: 2 tab Admin: 08/17/17 22:34 Dose: 2 tab Admin: 04/30/18 15:55 Dose: 2 tab Pantoprazole Sodium (Protonix) 40 mg PO DAILY ON LICENSE OF [facility] Last Admin: 08/19/17 08:20 Dose: 40 mg Admin: 08/18/17 09:30 Dose: 40 mg NfAspercreme ( Trolamine Salicylate /Aloe Vera) 0 each TOP QID PRN PRN Reason: Pain Polyethylene Glycol (Miralax) 17 gm PO Q48H ON LICENSE OF [facility] Last Admin: 08/19/17 17:52 Dose: 17 gm Admin: 08/17/17 17:08 Dose: 17 gm Pregabalin (Lyrica) 25 mg PO TID ON LICENSE OF [facility] Last Admin: 08/19/17 21:42 Dose: 25 mg Admin: 08/19/17 15:53 Dose: 25 mg Admin: 08/19/17 08:21 Dose: 25 mg Admin: 08/18/17 20:00 Dose: 25 mg Admin: 08/18/17 15:02 Dose: 25 mg Admin: 08/18/17 11:58 Dose: 25 mg Pregabalin (Lyrica) 75 mg PO TID ON LICENSE OF [facility] Last Admin: 08/19/17 21:43 Dose: 75 mg Admin: 08/19/17 15:53 Dose: 75 mg Admin: 08/19/17 08:20 Dose: 75 mg Admin: 08/18/17 20:00 Dose: 75 mg Admin: 08/18/17 15:02 Dose: 75 mg Admin: 08/18/17 14:26 Dose: Not Given Rivaroxaban (Xarelto) 10 mg PO DAILY ON LICENSE OF [facility] Last Admin: 08/19/17 08:20 Dose: 10 mg Admin: 08/18/17 09:31 Dose: 10 mg Saccharomyces Boulardii (Florastor) 250 mg PO DAILY ON LICENSE OF [facility] Last Admin: 08/19/17 08:20 Dose: 250 mg Admin: 08/18/17 09:30 Dose: 250 mg Senna (Senna) 8.6 mg PO BID PRN PRN Reason: Constipation Tramadol HCl (Ultram) 50 - 100 mg PO Q6H PRN PRN Reason: Pain Last Admin: 08/19/17 12:16 Dose: 100 mg Admin: 08/19/17 05:39 Dose: 100 mg Admin: 08/18/17 22:26 Dose: 100 mg Trazodone HCl (Trazodone) 100 mg PO BEDTIME [facility] Last Admin: 08/19/17 21:42 Dose: 100 mg Admin: 08/18/17 20:00 Dose: 100 mg Admin: 08/17/17 20:16 Dose: 100 mg - Assessment Assessment (Free Text/Narrative):: POD#3 - s/p left TKA - Plan Plan (Free Text/Narrative):: 1. Discharge to [facility] today for continued therapy. 2. Follow-up at Clinic next week. 3. Percocet and Ultram for pain management. 4. Xarelto, frequent mobility, TEDs. The pt's case was discussed with Dr. Walsh.
--- NOTE | 2017-08-20 07:05 | PCM.DCSUM1 ---
Discharge Summary - Hospital Course Brief History: Joann is a 57 yo female who underwent left TKA with Dr. Walsh on 08-17-2017. The procedure was completed under general anesthesia with a regional block. The pt tolerated the procedure well and was admitted to the Medical-Surgical unit. The pt received Ancef thomas-operatively. She participated in P.T. and O.T. and progressed well. She was allowed to WBAT and used a FWW for mobility. The pt's surgical wound was dressed with a Mepilex dressing and remained clean and dry. On POD#1, the pt was started on Xarelto for VTE prophylaxis. The pt used TEDs and SCDs also. On POD#1, the pt's hemoglobin was 10.5. Medical management was provided by the Hospitalist service and the pt's hospital course was uneventful. On POD#3, the pt was deemed appropriate for discharge to the [facility] for continued rehabilitation. - Discharge Data Discharge Date: 08/20/17 Discharge Disposition: Home, Self-Care 01 Condition: Good - Patient Summary/Data Consults: Consultations 08/17/17 07:14 OT Evaluation and Treatment [CONS] Routine PT Evaluation and Treatment [CONS] Routine 08/17/17 07:15 Consult to Physician [CONS] Routine - Patient Instructions Diet: Usual Diet as Tolerated Activity: Apply Ice, As Tolerated, Elevate Extremity, Full Weight Bearing Driving: Do Not Drive Showering/Bathing: May Shower Wound/Incision Care: Keep Operative Site/Wound Site Clean and Dry, Do NOT Change Dressing Notify Provider of: Fever, Increased Pain, Swelling and Redness, Drainage, Nausea and/or Vomiting Other/Special Instructions: Please get up and moving around every hour while awake. This helps to prevent blood clots. Please use your walker and have help with mobility as needed. Use the blood thinner medication - Xarelto - daily as directed. This is to help prevent blood clots. Please complete the exercises that you learned during the Hospital stay. Schedule for physical therapy. Use the pain medication as needed. The medication may cause drowsiness and constipation. Contact your primary care provider for instructions if you are constipated. You may use a stool softener like docusate sodium or Colace 100mg twice daily and/or a laxative like Miralax daily for constipation. Increase your water and fiber intake while you are using the pain medication. Please try to wean from use of the pain medication as soon as able. Wear the LAWANDA hose during the day and you may remove these at night. Elevate the limb to decrease swelling. Place ice to the area often. Place a towel between your skin and the blue pad. Use the incentive spirometer often. Take deep breaths throughout the day. Increase your protein intake while you are healing. If you have diabetes, please closely monitor your blood sugars and notify your primary care provider with abnormal values. Call the Clinic with questions or concerns - [phone]. - Discharge Plan Prescriptions/Med Rec: Acetaminophen/oxyCODONE [Percocet 325-5 MG] 1 - 2 tab PO Q6H PRN #60 tablet PRN Reason: Pain Cyclobenzaprine [Flexeril] 10 mg PO TID PRN #40 tablet PRN Reason: Spasms Rivaroxaban [Xarelto] 10 mg PO DAILY #40 tablet traMADol [Ultram] 50 - 100 mg PO Q6H PRN #40 tablet PRN Reason: Pain Home Medications: Home Meds Aspirin [Halfprin] 81 mg PO DAILY 10/29/16 [History] Dextran 70/Hypromellose [Artificial Tears] 1 drop EYEBOTH QID 10/29/16 [History] Gemfibrozil [Lopid] 600 mg PO BID 10/29/16 [History] L.acidoph,Paracasei, B.lactis [Probiotic] 1 cap PO DAILY 10/29/16 [History] Nitroglycerin [Nitrostat] 0.4 mg SL Q5M PRN 10/29/16 [History] Pantoprazole Sodium [Protonix] 40 mg PO DAILY 10/29/16 [History] Pregabalin [Lyrica] 100 mg PO TID 10/29/16 [History] Trolamine Salicylate/Aloe Vera [Aspercreme 10%] 1 applic TOP QID PRN 10/29/16 [ History] hydrOXYzine Pamoate [Hydroxyzine Pamoate] 150 mg PO QPM 10/29/16 [History] metFORMIN [Glucophage XR] 500 mg PO BID 10/29/16 [History] Lisinopril 20 mg PO DAILY 08/14/17 [History] Nortriptyline HCl [Pamelor] 50 mg PO BEDTIME 08/14/17 [History] Polyethylene Glycol 3350 [MiraLAX] 1 dose PO Q48H 08/14/17 [History] Acetaminophen/oxyCODONE [Percocet 325-5 MG] 1 - 2 tab PO Q6H PRN #60 tablet [Rx] Bisacodyl [Dulcolax] 5 mg PO DAILY PRN tablet 08/17/17 [Rx] Rivaroxaban [Xarelto] 10 mg PO DAILY #40 tablet 08/17/17 [Rx] Sennosides [Senna] 8.6 mg PO BID PRN tablet 08/17/17 [Rx] hydrOXYzine Pamoate [Hydroxyzine Pamoate] 50 mg PO QAM 08/18/17 [History] traZODone HCl [Trazodone HCl] 100 mg PO 08/18/17 [History] traZODone HCl [Trazodone HCl] 200 mg PO BEDTIME 08/18/17 [History] Cyclobenzaprine [Flexeril] 10 mg PO TID PRN #40 tablet 08/19/17 [Rx] Docusate Sodium [Colace] 100 mg PO BID cap 08/19/17 [Rx] traMADol [Ultram] 50 - 100 mg PO Q6H PRN #40 tablet 08/19/17 [Rx] Referrals: Fannie uGtierrez PA-C [Physician Yeast Pumper] - - Patient Data Vitals - Most Recent: Last Vital Signs Temp 96.6 F 08/20/17 04:12 Pulse 84 08/20/17 04:12 Resp 15 08/20/17 04:12 BP 126/85 08/20/17 04:12 Pulse Ox 95 08/20/17 04:12 Weight - Most Recent: 185 lb 6.4 oz I&O - Last 24 hours: Intake & Output 08/19/17 08/20/17 08/20/17 22:59 06:59 14:59 Intake Total 920 700 Output Total 1500 700 Balance -580 0 Lab Results - Last 24 hrs: Laboratory Results - last 24 hr 08/19/17 08/19/17 08/20/17 Range/Units 07:24 12:20 06:11 POC Glucose 150 H 103 182 H (70-105) mg/dL Med Orders - Current: Current Medications Artificial Tears (Isopto Tears 0.5% Ophth Soln) 0 ml EYEBOTH QID [facility] Last Admin: 08/19/17 21:43 Dose: 1 drop Aspirin (Halfprin) 81 mg PO DAILY [facility] Last Admin: 08/19/17 08:20 Dose: 81 mg Bisacodyl (Dulcolax) 5 mg PO DAILY PRN PRN Reason: Constipation Last Admin: 08/18/17 09:31 Dose: 5 mg Cyclobenzaprine HCl (Flexeril) 10 mg PO TID PRN PRN Reason: Spasms Last Admin: 08/19/17 10:37 Dose: 10 mg Docusate Sodium (Colace) 100 mg PO BID [facility] Last Admin: 08/19/17 21:42 Dose: 100 mg Gemfibrozil (Lopid) 600 mg PO BID [facility] Last Admin: 08/19/17 21:43 Dose: 600 mg Hydroxyzine HCl (Atarax) 50 mg PO QAM [facility] Last Admin: 08/19/17 08:21 Dose: 50 mg Hydroxyzine HCl (Atarax) 150 mg PO QPM [facility] Last Admin: 08/19/17 17:52 Dose: 150 mg Ketorolac Tromethamine (Toradol) 15 mg IVPUSH Q6H PRN PRN Reason: Pain Last Admin: 08/18/17 10:32 Dose: 15 mg Lisinopril (Prinivil) 20 mg PO DAILY [facility] Last Admin: 08/19/17 08:20 Dose: 20 mg Magnesium Hydroxide (Milk Of Magnesia) 30 ml PO BID PRN PRN Reason: Constipation Last Admin: 08/20/17 06:12 Dose: 30 ml Metformin HCl (Glucophage) 500 mg PO BID [facility] Last Admin: 08/19/17 21:42 Dose: 500 mg Morphine Sulfate (Morphine) 2 mg IVPUSH Q2H PRN PRN Reason: Breakthrough Pain Naloxone HCl (Narcan) 0.1 mg IVPUSH Q5M PRN PRN Reason: Oversedation Nitroglycerin (Nitrostat) 0.4 mg SL Q5M PRN PRN Reason: Chest Pain Nortriptyline HCl (Nortriptyline) 50 mg PO BEDTIME [facility] Last Admin: 08/19/17 21:42 Dose: 50 mg Ondansetron HCl (Zofran) 4 mg IVPUSH Q6H PRN PRN Reason: Nausea/Vomiting Last Admin: 08/18/17 10:23 Dose: 4 mg Oxycodone HCl (Oxycodone) 5 mg PO Q6H PRN PRN Reason: Pain Last Admin: 08/18/17 23:44 Dose: 5 mg Oxycodone/Acetaminophen (Percocet 325-5 Mg) 1 - 2 tab PO Q4H PRN PRN Reason: Pain Last Admin: 08/20/17 06:12 Dose: 2 tab Pantoprazole Sodium (Protonix) 40 mg PO DAILY [facility] Last Admin: 08/19/17 08:20 Dose: 40 mg NfAspercreme ( Trolamine Salicylate /Aloe Vera) 0 each TOP QID PRN PRN Reason: Pain Polyethylene Glycol (Miralax) 17 gm PO Q48H [facility] Last Admin: 08/19/17 17:52 Dose: 17 gm Pregabalin (Lyrica) 25 mg PO TID [facility] Last Admin: 08/19/17 21:42 Dose: 25 mg Pregabalin (Lyrica) 75 mg PO TID [facility] Last Admin: 08/19/17 21:43 Dose: 75 mg Rivaroxaban (Xarelto) 10 mg PO DAILY [facility] Last Admin: 08/19/17 08:20 Dose: 10 mg Saccharomyces Boulardii (Florastor) 250 mg PO DAILY [facility] Last Admin: 08/19/17 08:20 Dose: 250 mg Senna (Senna) 8.6 mg PO BID PRN PRN Reason: Constipation Tramadol HCl (Ultram) 50 - 100 mg PO Q6H PRN PRN Reason: Pain Last Admin: 08/19/17 12:16 Dose: 100 mg Trazodone HCl (Trazodone) 100 mg PO BEDTIME [facility] Last Admin: 08/19/17 21:42 Dose: 100 mg Discontinued Medications Albuterol (Proventil Neb Soln) 2.5 mg NEB ONETIME [facility] Stop: 07/27/17 16:00 Bupivacaine HCl (Marcaine 0.25%) Confirm Administered Dose 30 ml .ROUTE .STK- MED ONE Stop: 08/17/17 11:11 Last Admin: 08/17/17 13:25 Dose: 30 ml Cefazolin Sodium (Ancef) Confirm Administered Dose 2 gm .ROUTE .STK-MED ONE Stop: 08/17/17 11:11 Last Admin: 08/17/17 13:19 Dose: 2 gm Morphine Sulfate 8 mg/Epinephrine HCl 0.3 mg/Cefuroxime Sodium 750 mg/Ketorolac Tromethamine 30 mg/Sodium Chloride 27.9 ml 0 mg .XX ONETIME ONE Stop: 08/17/17 12:31 Last Admin: 08/17/17 16:59 Dose: Not Given Epinephrine HCl (Adrenalin) Confirm Administered Dose 1 mg .ROUTE .STK-MED ONE Stop: 08/17/17 13:28 Famotidine (Pepcid) 20 mg PO Q12H PEPE Fentanyl (Sublimaze) Confirm Administered Dose 100 mcg .ROUTE .STK-MED ONE Stop: 08/17/17 10:44 Fentanyl (Sublimaze) Confirm Administered Dose 250 mcg .ROUTE .STK-MED ONE Stop: 08/17/17 12:26 Fentanyl (Sublimaze) 50 mcg IVPUSH Q5M PRN PRN Reason: pain Stop: 08/17/17 16:00 Last Admin: 08/17/17 14:17 Dose: 50 mcg Fentanyl (Sublimaze) Confirm Administered Dose 100 mcg .ROUTE .STK-MED ONE Stop: 08/17/17 14:17 Last Admin: 08/17/17 16:59 Dose: Not Given Hydromorphone HCl (Dilaudid) Confirm Administered Dose 0.5 mg .ROUTE .STK-MED ONE Stop: 08/17/17 12:02 Hydromorphone HCl (Dilaudid) Confirm Administered Dose 0.5 mg .ROUTE .STK-MED ONE Stop: 08/17/17 14:01 Hydromorphone HCl (Dilaudid) 0.5 mg IVPUSH ONETIME ONE Stop: 08/17/17 14:11 Last Admin: 08/17/17 14:36 Dose: 0.5 mg Lactated Ringer's (Ringers, Lactated) 1,000 mls @ 125 mls/hr IV ASDIRECTED [facility] Stop: 07/27/17 23:00 Lactated Ringer's (Ringers, Lactated) 1,000 mls @ 125 mls/hr IV ASDIRECTED [facility] Stop: 08/17/17 23:00 Last Admin: 08/17/17 11:20 Dose: 125 mls/hr Cefazolin Sodium/Dextrose 2 gm (/ Premix) 50 mls @ 100 mls/hr IV Q8H [facility] Stop: 08/18/17 12:29 Last Admin: 08/18/17 12:00 Dose: 100 mls/hr Vancomycin HCl 1 gm/ Sodium (Chloride) 250 mls @ 250 mls/hr IV ONETIME ONE Stop: 08/17/17 13:29 Last Admin: 08/17/17 17:21 Dose: Not Given Lactated Ringer's (Ringers, Lactated) Confirm Administered Dose 1,000 mls @ as directed .ROUTE .STK-MED ONE Stop: 08/17/17 13:59 Lidocaine HCl (Xylocaine-Mpf 1%) Confirm Administered Dose 2 mls @ as directed .ROUTE .STK-MED ONE Stop: 08/17/17 14:11 Iodine (Iodine 2% Mild Tincture) Confirm Administered Dose 30 ml .ROUTE .STK- MED ONE Stop: 08/17/17 11:11 Last Admin: 08/17/17 13:17 Dose: 18 ml Lidocaine/Sodium Bicarbonate (Buffered Lidocaine 1% In Ns 8.4%) 0.25 ml IDERM ONETIME PRN PRN Reason: Prior to IV Start Stop: 07/27/17 18:00 Lidocaine/Sodium Bicarbonate (Buffered Lidocaine 1% In Ns 8.4%) 0.25 ml IDERM ONETIME PRN PRN Reason: Prior to IV Start Stop: 08/17/17 18:00 Last Admin: 08/17/17 11:19 Dose: 0.25 ml Midazolam HCl (Versed 1 Mg/Ml) Confirm Administered Dose 2 mg .ROUTE .STK-MED ONE Stop: 08/17/17 12:06 Ondansetron HCl (Zofran) Confirm Administered Dose 4 mg .ROUTE .STK-MED ONE Stop: 08/17/17 12:27 Ondansetron HCl (Zofran) 4 mg IVPUSH ONETIME PRN PRN Reason: Nausea/Vomiting Stop: 08/17/17 17:00 Pregabalin (Lyrica) 100 mg PO TID [facility] Last Admin: 08/18/17 14:27 Dose: Not Given Pregabalin (Lyrica) 75 mg PO TID [facility] Last Admin: 08/18/17 12:00 Dose: 75 mg Propofol (Diprivan 20 Ml) Confirm Administered Dose 200 mg .ROUTE .STK-MED ONE Stop: 08/17/17 10:44 Propofol (Diprivan 20 Ml) Confirm Administered Dose 200 mg .ROUTE .STK-MED ONE Stop: 08/17/17 10:47 Rocuronium Chloe (Zemuron) Confirm Administered Dose 50 mg .ROUTE .STK-MED ONE Stop: 08/17/17 12:01 Ropivacaine (Naropin 0.5%) Confirm Administered Dose 30 ml .ROUTE .STK-MED ONE Stop: 08/17/17 13:28 Scopolamine (Transderm-Scop) 1.5 mg TOP ONETIME [facility] Stop: 07/27/17 16:00 Scopolamine (Transderm-Scop) 1.5 mg TRDERM ONETIME [facility] Stop: 08/17/17 18:00 Last Admin: 08/17/17 11:48 Dose: 1.5 mg Sodium Chloride (Saline Flush) 10 ml FLUSH ASDIRECTED PRN PRN Reason: Keep Vein Open Stop: 07/27/17 18:00 Sodium Chloride (Saline Flush) 10 ml FLUSH ASDIRECTED PRN PRN Reason: Keep Vein Open Stop: 08/17/17 18:00 Tramadol HCl (Ultram) 50 mg PO Q6H PRN PRN Reason: Pain Tramadol HCl (Ultram) 1 - 2 mg PO Q6H PRN PRN Reason: Pain Tranexamic Acid (Cyklokapron) Confirm Administered Dose 1,000 mg .ROUTE .STK- MED ONE Stop: 08/17/17 11:10 Last Admin: 08/17/17 13:32 Dose: 1,000 mg Vancomycin HCl (Vancomycin) Confirm Administered Dose 1 gm .ROUTE .STK-MED ONE Stop: 08/17/17 11:11 Last Admin: 08/17/17 13:27 Dose: 1 gm Vancomycin HCl (Pharmacy To Dose - Vancomycin) 1 dose .XX ASDIRECTED [facility] Stop: 08/17/17 13:00
[2017-08-20] MEDS: Gemfibrozil 600 MG Tab PO SCH (08:16)
[2017-08-20] MEDS: Rivaroxaban 10 MG Tab PO SCH (08:16)
[2017-08-20] MEDS: Lisinopril 20 MG Tab PO SCH (08:16)
[2017-08-20] MEDS: Saccharomyces Boulardii (Probiotic) 250 MG Cap PO SCH (08:16)
[2017-08-20] MEDS: Docusate Sodium 100 MG Cap PO SCH (08:16)
[2017-08-20] MEDS: Aspirin 81 MG Tab.EC PO SCH (08:16)
[2017-08-20] MEDS: Pregabalin 75 MG Cap PO SCH (08:16)
[2017-08-20] MEDS: Pantoprazole 40 MG Tab.CR PO SCH (08:18)
[2017-08-20] MEDS: hydrOXYzine HCl 50 MG Tab PO SCH (08:18)
[2017-08-20] MEDS: metFORMIN 500 MG Tab PO SCH (08:18)
[2017-08-20] MEDS: Pregabalin 25 MG Cap PO SCH (08:18)
[2017-08-20] MEDS: Hypromellose 0.5% Ophth Soln 15 ML Bottle EYEBOTH SCH (08:18)
[2017-08-20] MEDS: Ondansetron 4 MG/2 ML SDV IVPUSH PRN (09:28)
[2017-08-20] MEDS ORDERED: Scopolamine 1.5 MG Transdermal Patch TOP ONE (09:31)
[2017-08-20] MEDS ORDERED: Ondansetron 4 MG Tab.DIS PO ONE (09:31)
[2017-08-20 09:57] VITALS: BP 119/77
--- NOTE | 2017-08-27 07:18 | PCM.OPNOTE ---
- General Post-Op/Procedure Note Date of Surgery/Procedure: 08/17/17 Operative Procedure(s): left total knee arthroplasty Pre Op Diagnosis: left knee osteoarthrosis Post-Op Diagnosis: Same Anesthesia Technique: Local, MAC, Spinal Primary Surgeon: Magno Walsh Anesthesia Provider: Chiquita Sen Temperature Logging Operator: Fannie Gutierrez Temperature Logging Operator: Usha Wills EBLibertad in mLs: 350 Complications: None Condition: Good
--- NOTE | 2017-08-27 08:36 | OR ---
DATE OF OPERATION: 08/17/2017 SURGEON: Magno Walsh MD OPERATION PERFORMED: Left total knee arthroplasty. PREOPERATIVE DIAGNOSIS: Left knee osteoarthrosis. POSTOPERATIVE DIAGNOSIS: Left knee osteoarthrosis. ANESTHESIA: Local MAC with spinal. ANESTHESIA PROVIDER: Chiquita Sen. ASSISTANTS: Fannie Gutierrez PA-C and Usha Wills LPN. ESTIMATED BLOOD LOSS: 350 mL. COMPLICATIONS: None. CONDITION: Stable. IMPLANTS: 1. [place] size 4 press-fit femur. 2. [place] size 4 press-fit tibial baseplate. 3. Shari size 4, CS 9 mm polyethylene insert. 4. [place] size 29 x 9 mm press-fit asymmetric patella. DESCRIPTION OF PROCEDURE: The patient was identified in the preop holding area. Proper site was marked and identified by the surgeon. The patient was taken back to the operating theater. After adequate anesthesia, the patient's left lower extremity had a nonsterile tourniquet applied and it was then sterilely prepped and draped in the usual sterile fashion. OR timeout was performed. The patient received 2 g IV Ancef. At this time, left lower extremity was exsanguinated. Tourniquet was insufflated to 300 mmHg. Standard medial parapatellar incision was made. Medial parapatellar arthrotomy was created. Deep fibers of the MCL were raised and anterior fat pad was resected. At this time, attention was turned to the patella. The patella measured 22, it was resected to a 13 for 29 x 9 mm patella. Drill holes were then drilled and found to be in adequate position. The drill was then drilled in the distal femur and the intramedullary distal femoral cutting guide was then placed. 8 mm was resected off the distal femur and was found to be an adequate resection. Sizing guide was placed. It was found to be a size 4 press-fit femur that was shown on the implant record at the beginning of this dictation. The drill holes were drilled for the epicondylar axis using [place] line and epicondyles as reference. At this time, the 4-in - 1 cutting block was placed. An anterior posterior and anterior and posterior chamfer cuts were then completed. The correct size box cut was then placed and the box cut was completed and found to be an adequate resection. Attention was turned to the tibia. The posterior medial lateral retractors were placed. The extramedullary tibial guide was placed. It was placed in the old footprint of the ACL. It was aligned with the center of the ankle and 0 degrees of slope, 9 mm was then resected off the unaffected lateral side. There was found to be an acceptable reduction. At this time, posterior osteophytes were removed along with medial and lateral meniscus. A trial implant was placed with a correct sized tibia that was mentioned at the beginning of the dictation. A size 4, CS 9 mm polyethylene insert was then placed. The patient's knee was brought through range of motion. The patella was tracking centrally and was stable to varus and valgus stress. Alignment was found to be roughly at 0 degrees. The tibia was stamped and drilled in proper rotation. The universal tibial base plate was impacted in place. Next, the size 4 press-fit femur was press-fit into place and the size 4, CS 9 mm polyethylene insert was placed. The patient's knee was brought into full extension. The patella was then press-fit in place at this time. Tourniquet was deflated. One liter dilute Betadine solution was irrigated through the knee along with 3 L of pulse lavage irrigation with Ancef. Periarticular injection was then completed. The patient's knee was brought through a range of motion. Knee was found to be stable to varus valgus stress, the patella was tracking centrally with full range of motion. At this time, a #2 barbed suture was used for closure of the medial parapatellar arthrotomy. Topical tranexamic acid was placed. 2-0 Vicryl was used subcutaneously, a running 3-0 Monocryl was used subcuticularly. The patient tolerated the procedure well and was sent to the PACU in stable condition. ANTHONY /[id number] SANDRA
== END 2017-08-20 10:31 | disposition home or self-care (01) | DRG 470 ==
LOC: EEVIPCON 09:28 → JD.SDS 09:28 → JD.MS 09:31 → JD.SDS 14:06 → JD.MS 14:06
PROVIDERS: ADMIT Orthopaedic Surgery; ATTEND Orthopaedic Surgery
PROC: 0SRD0JA Replacement of Left Knee Joint with Synthetic Substitute, Uncemented, Open Approach (ICD-10-PCS; principal; 2017-08-17)
PROC: 3E0T3BZ Introduction of Anesthetic Agent into Peripheral Nerves and Plexi, Percutaneous Approach (ICD-10-PCS; 2017-08-17)
DX: M17.12 Unilateral primary osteoarthritis, left knee (principal); E11.9 Type 2 diabetes mellitus without complications; R03.0 Elevated blood-pressure reading, without diagnosis of hypertension; G90.522 Complex regional pain syndrome I of left lower limb; I51.9 Heart disease, unspecified; H91.90 Unspecified hearing loss, unspecified ear; Z79.84 Long term (current) use of oral hypoglycemic drugs; R53.1 Weakness; K59.00 Constipation, unspecified; R53.83 Other fatigue; I10 Essential (primary) hypertension; J45.20 Mild intermittent asthma, uncomplicated; E11.42 Type 2 diabetes mellitus with diabetic polyneuropathy; E78.5 Hyperlipidemia, unspecified; M54.5 Low back pain; F41.9 Anxiety disorder, unspecified; F33.41 Major depressive disorder, recurrent, in partial remission; E55.9 Vitamin D deficiency, unspecified; M25.762 Osteophyte, left knee; R01.1 Cardiac murmur, unspecified; G43.909 Migraine, unspecified, not intractable, without status migrainosus; Z90.49 Acquired absence of other specified parts of digestive tract; Z79.4 Long term (current) use of insulin; Z86.711 Personal history of pulmonary embolism; Z66 Do not resuscitate; Z90.710 Acquired absence of both cervix and uterus; Z87.442 Personal history of urinary calculi; Z88.0 Allergy status to penicillin; Z88.8 Allergy status to other drugs, medicaments and biological substances; Z22.322 Carrier or suspected carrier of Methicillin resistant Staphylococcus aureus; Z87.891 Personal history of nicotine dependence; Z88.1 Allergy status to other antibiotic agents; Z79.82 Long term (current) use of aspirin; Z79.899 Other long term (current) drug therapy
CPT/HCPCS: 27447; 36415; 64447 ×2; 73560; 85652; 86140; 87641 ×2; A9270 ×2; C1776 ×4; J0171 ×2; J0690; J0697; J1170 ×3; J1885; J2250; J2270; J2405; J2795; J3010 ×3; J3370; J3490; J7120 ×2; 01402; 64450; 80053; 82962; 85027; 97110-GP; 97112-GP; 97116-GP; 97162-GP; 97166-GO; 97535-GO; J2001; J2704

== ENCOUNTER 2017-10-27 14:14 | Emergency (ER) | payer MEDICAID ==
[2017-10-27 14:41] VITALS: BP 173/96
[2017-10-27] MEDS ORDERED: Sodium Chloride 0.9% 1,000 ML IV SCH (16:15)
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
[2017-10-27] MEDS ORDERED: Ondansetron 4 MG in Sodium Chloride 0.9% 50 ML IV ONE (17:59)
[2017-10-27] MEDS ORDERED: HYDROmorphone 0.5 MG/0.5 ML SYRINGE IVPUSH ONE (17:59)
[2017-10-27] MEDS ORDERED: Ondansetron 4 MG/2 ML SDV ONE (18:07)
[2017-10-27] MEDS ORDERED: Ondansetron 4 MG/2 ML SDV IVPUSH ONE (18:08)
== END 2017-10-27 19:30 | disposition home or self-care (01) ==
LOC: JD.ED 14:14
DX: M96.89 Other intraoperative and postprocedural complications and disorders of the musculoskeletal system (principal); M25.462 Effusion, left knee; I10 Essential (primary) hypertension; E78.00 Pure hypercholesterolemia, unspecified; K21.9 Gastro-esophageal reflux disease without esophagitis; E11.9 Type 2 diabetes mellitus without complications; F32.9 Major depressive disorder, single episode, unspecified; F41.9 Anxiety disorder, unspecified; Z96.652 Presence of left artificial knee joint; Z88.8 Allergy status to other drugs, medicaments and biological substances; Z88.1 Allergy status to other antibiotic agents; Z79.82 Long term (current) use of aspirin; Z79.899 Other long term (current) drug therapy
CPT/HCPCS: 36415; 81001; 86140; 87040; 96361; 96374; 96375; 99284; J1170; J2405; J7040

== ENCOUNTER 2018-06-05 08:40 | Emergency (ER) | payer MEDICAID ==
[2018-06-05 08:54] VITALS: BP 97/75
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
[2018-06-05] MEDS ORDERED: Ondansetron 4 MG Tab.DIS PO ONE (09:39)
[2018-06-05] MEDS ORDERED: Acetaminophen/oxyCODONE 325-5 MG Tab PO ONE (09:39)
--- NOTE | 2018-06-05 15:10 | CR ---
Right tibia and fibula: Two views of the right tibia and fibula were obtained. Comparison: No previous study. No fracture or other bony abnormality is appreciated. Impression: 1. No abnormality is identified on two-view right tibia and fibula exam. Diagnostic code #2
--- NOTE | 2018-06-05 15:10 | CR ---
Pelvis: AP view of the pelvis was obtained. Comparison: Prior AP pelvis exam of 12/31/16. Calcifications are noted within the buttock soft tissue adjacent to the iliac crests which are stable. Degenerative change is partially visualized within the lower lumbar spine. Minimal vascular calcification is seen. No acute fracture or other abnormality is seen. Impression: 1. Incidental findings as noted above. Nothing acute is appreciated on AP pelvis study. Diagnostic code #2
== END 2018-06-05 10:10 | disposition home or self-care (01) ==
LOC: JD.ED 08:40
DX: S86.111A Strain of other muscle(s) and tendon(s) of posterior muscle group at lower leg level, right leg, initial encounter (principal); S70.01XA Contusion of right hip, initial encounter; S80.01XA Contusion of right knee, initial encounter; I10 Essential (primary) hypertension; E11.9 Type 2 diabetes mellitus without complications; Z79.899 Other long term (current) drug therapy; Z88.0 Allergy status to penicillin; Z79.82 Long term (current) use of aspirin; W19.XXXA Unspecified fall, initial encounter; Y92.000 Kitchen of unspecified non-institutional (private) residence as the place of occurrence of the external cause
CPT/HCPCS: 72170; 73590; 99283; A9270

== ENCOUNTER 2018-06-19 16:50 | Emergency (ER) | payer MEDICAID ==
[2018-06-19 16:57] VITALS: BP 90/62
[2018-06-19] MEDS ORDERED: Ondansetron 4 MG Tab.DIS PO ONE (18:38)
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
--- NOTE | 2018-06-20 13:18 | CR ---
Chest: Two views of the chest were obtained. Comparison: No prior chest x-ray is available. Heart size and mediastinum are within normal limits. Lungs are clear. Surgical clips are seen within the upper abdomen. Previous cervical spine surgery is noted. Bony structures show mild degenerative change within the spine. Impression: 1. Incidental findings. Nothing acute is seen on two-view chest x-ray. Diagnostic code #2
== END 2018-06-19 20:38 | disposition home or self-care (01) ==
LOC: SUPCPDRO 16:50 → JD.ED 16:50
DX: R42 Dizziness and giddiness (principal); R05 Cough; I10 Essential (primary) hypertension; E11.9 Type 2 diabetes mellitus without complications; Z90.49 Acquired absence of other specified parts of digestive tract; Z88.0 Allergy status to penicillin; Z88.8 Allergy status to other drugs, medicaments and biological substances; Z79.82 Long term (current) use of aspirin; Z79.84 Long term (current) use of oral hypoglycemic drugs; Z79.899 Other long term (current) drug therapy
CPT/HCPCS: 36415; 71046; 80053; 81001; 85007; 85027; 87804; 99284; A9270; 99283

== ENCOUNTER 2018-08-05 14:12 | Emergency (ER) | payer MEDICAID ==
[2018-08-05 14:25] VITALS: BP 127/74
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
--- NOTE | 2018-08-06 10:55 | CR ---
Left knee: Two views of the left knee were obtained. Comparison: Previous left knee study of 08/17/17. Knee prosthesis is seen. Components are aligned. Underlying bony structures are intact. No acute bony abnormality is seen. Impression: 1. Knee prosthesis. Nothing acute seen on left knee exam. Diagnostic code #2
== END 2018-08-05 15:55 | disposition home or self-care (01) ==
LOC: JD.ED 14:12
DX: R23.3 Spontaneous ecchymoses (principal); M25.562 Pain in left knee; G89.29 Other chronic pain; E78.00 Pure hypercholesterolemia, unspecified; I10 Essential (primary) hypertension; K21.9 Gastro-esophageal reflux disease without esophagitis; F41.9 Anxiety disorder, unspecified; F32.9 Major depressive disorder, single episode, unspecified; E11.9 Type 2 diabetes mellitus without complications; Z88.8 Allergy status to other drugs, medicaments and biological substances; Z88.1 Allergy status to other antibiotic agents; Z79.899 Other long term (current) drug therapy; Z79.82 Long term (current) use of aspirin
CPT/HCPCS: 73560-26-LT; 73560-LT; 99282; 99283-25

== ENCOUNTER 2018-09-10 12:23 | Emergency (ER) | payer MEDICAID ==
[2018-09-10 12:34] VITALS: BP 159/80
[2018-09-10] MEDS ORDERED: Sodium Chloride 0.9% 10 ML Syringe FLUSH PRN (12:37)
[2018-09-10] MEDS ORDERED: Haloperidol Lactate 5 MG/ML SDV IM ONE (12:38)
[2018-09-10] MEDS ORDERED: Ondansetron 4 MG/2 ML SDV IVPUSH ONE (12:39)
[2018-09-10] MEDS ORDERED: Sodium Chloride 0.9% 1,000 ML IV SCH (12:45)
[2018-09-10] MEDS: Benztropine 1 MG Tab PO ONE ×2 (13:18→13:44)
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
[2018-09-10] MEDS ORDERED: Ketorolac 30 MG/ML SDV IVPUSH ONE (13:24)
[2018-09-10] MEDS ORDERED: diphenhydrAMINE 50 MG/ML SDV IVPUSH ONE (13:25)
[2018-09-10] MEDS ORDERED: Metoclopramide 10 MG/2 ML SDV IVPUSH ONE (14:01)
[2018-09-10] MEDS ORDERED: Promethazine 25 MG/ML SDV IM ONE (14:28)
[2018-09-10] MEDS ORDERED: Acetaminophen/Butalbital/Caffeine 325-50-40 MG Tab PO ONE (14:59)
== END 2018-09-10 15:20 | disposition home or self-care (01) ==
LOC: JD.ED 12:23
DX: G43.009 Migraine without aura, not intractable, without status migrainosus (principal); E78.00 Pure hypercholesterolemia, unspecified; I10 Essential (primary) hypertension; K21.9 Gastro-esophageal reflux disease without esophagitis; F41.9 Anxiety disorder, unspecified; F32.9 Major depressive disorder, single episode, unspecified; Z87.891 Personal history of nicotine dependence; Z88.8 Allergy status to other drugs, medicaments and biological substances; Z88.1 Allergy status to other antibiotic agents; Z79.82 Long term (current) use of aspirin; Z79.899 Other long term (current) drug therapy
CPT/HCPCS: 36415; 80053; 81003; 85025; 96361; 96372; 96374; 96375; 99283; A9270; J1200; J1885; J2405; J2550; J2765; J7040; 99284

== ENCOUNTER 2018-09-16 14:03 | Emergency (ER) | payer MEDICAID ==
[2018-09-16 14:19] VITALS: BP 132/78
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
== END 2018-09-16 15:18 | disposition home or self-care (01) ==
LOC: JD.ED 14:03
DX: L03.113 Cellulitis of right upper limb (principal); K21.9 Gastro-esophageal reflux disease without esophagitis; F41.9 Anxiety disorder, unspecified; F32.9 Major depressive disorder, single episode, unspecified; E11.9 Type 2 diabetes mellitus without complications; Z79.82 Long term (current) use of aspirin; Z79.899 Other long term (current) drug therapy; Z88.1 Allergy status to other antibiotic agents; Z88.8 Allergy status to other drugs, medicaments and biological substances; Z88.0 Allergy status to penicillin
CPT/HCPCS: 99283

== ENCOUNTER 2018-09-23 10:25 | Emergency (ER) | payer MEDICAID ==
[2018-09-23 11:07] VITALS: BP 130/97
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
[2018-09-23] MEDS ORDERED: LORazepam 1 MG Tab PO ONE ×2 (13:03→16:56)
== END 2018-09-23 18:19 ==
LOC: JD.ED 10:25
DX: F32.9 Major depressive disorder, single episode, unspecified (principal); K21.9 Gastro-esophageal reflux disease without esophagitis; F41.9 Anxiety disorder, unspecified; E11.9 Type 2 diabetes mellitus without complications; Z79.899 Other long term (current) drug therapy; Z79.82 Long term (current) use of aspirin; Z88.0 Allergy status to penicillin; Z88.8 Allergy status to other drugs, medicaments and biological substances; Z88.1 Allergy status to other antibiotic agents
CPT/HCPCS: 36415; 80053; 80306; 84443; 85025; 99285; A9270; G0480; 99284

== ENCOUNTER 2019-05-01 15:14 | Emergency (ER) | payer MEDICAID, OTHER ==
[2019-05-01 15:22] VITALS: BP 148/93; PULSE 81
[2019-05-01] MEDS ORDERED: HYDROmorphone 0.5 MG/0.5 ML Syringe IVPUSH ONE ×2 (15:53→17:20)
[2019-05-01] MEDS ORDERED: Ondansetron 4 MG/2 ML SDV IVPUSH ONE (15:53)
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
[2019-05-01] MEDS ORDERED: Dextrose 5%-Lactated Ringers 1,000 ML IV SCH (16:00)
--- NOTE | 2019-05-01 17:08 | CT ---
CT lumbar spine Technique: Multiple axial sections were obtained from the top of T12 inferiorly through the sacrum. Reconstructed sagittal and coronal images were reviewed. Comparison: Prior MRI lumbar spine exam of 06/26/15 is available. Findings: T12-L1: Slight circumferential disc bulge is seen. Mild disc space narrowing is noted. Posterior disc maintains concave margin. Mild degenerative apophyseal change is noted. No central canal stenosis or neural foraminal stenosis is seen. L1-2: Fairly severe disc space narrowing is noted with posterior osteophytes. Circumferential disc bulge is present. Posterior disc maintains a concave margin. Mild degenerative apophyseal change is seen. No central canal stenosis or neural foraminal stenosis is seen. L2-3: Mild disc space narrowing is seen. Circumferential disc bulge is noted. Posterior disc maintains concave margin. Mild degenerative apophyseal change is seen. No central canal stenosis or neural foraminal stenosis is seen. L3-4: Mild disc space narrowing is noted. Slight retrolisthesis by several millimeters is noted which is degenerative in etiology. Circumferential disc bulge is seen. Posterior disc as a planar margin. Moderate degenerative apophyseal change is seen worse on the right side. Thickening of the ligamentum flavum is seen. Findings cause mild central canal stenosis. Neural foramina are patent where the nerve roots exit. L4-5: Severe degenerative apophyseal change is seen. Circumferential disc bulge is noted. Thickening of the ligamentum flavum is seen. Findings cause moderate central canal stenosis. Neural foramina appear to be patent where the nerve roots exit. L5-S1: Disc space is slightly narrowed. Vacuum disc phenomena is noted. Mild diffuse posterior disc bulge is seen. Neural foramina are patent where the nerve roots exit. No central canal stenosis is seen. Severe degenerative apophyseal change is noted. No fracture is identified. Impression: 1. Diffuse degenerative change as noted above. No acute fracture or acute subluxation is seen. Diagnostic code #3 This report was dictated in [place] Standard Time
--- NOTE | 2019-05-01 17:08 | CT ---
Head CT Technique: Multiple axial sections through the brain were obtained. Intravenous contrast was not utilized. Comparison: Prior head CT study of 05/20/18. Findings: Ventricles along with basal cisterns and sulci the convexities appear within normal limits for the patient's age. No abnormal parenchymal densities are seen. No evidence of intracranial hemorrhage. No midline shift or mass effect is seen. Bone window settings were reviewed which shows mild mucosal thickening inferiorly within the right mastoid sinus. Other mastoid sinuses are clear. Visualized paranasal sinuses are clear. No acute calvarial abnormality is appreciated. Impression: 1. Mastoid sinus finding believed to be incidental. 2. No acute intracranial abnormality is identified. Diagnostic code #2 This report was dictated in [place] Standard Time
--- NOTE | 2019-05-01 17:08 | CT ---
CT cervical spine Technique: Multiple axial sections through the cervical spine were obtained. Reconstructed sagittal and coronal images were obtained. Imaging was obtained from above C1 inferiorly to the bottom T2. Comparison: Prior cervical spine CT study of 02/16/13. Findings: Mild mucosal thickening is seen inferiorly within the right mastoid sinus. Previous surgery is noted C5-6 and C6-7 with anterior plate and screws causing artifact. Scattered degenerative change is noted throughout the apophyseal joints within the cervical and upper thoracic spine. Moderate left-sided neural foraminal stenosis is noted at C4-5. Mild left-sided neural foraminal stenosis is noted at C5-C6. Moderate left-sided neural foraminal stenosis is noted at C6-7. Mild right-sided neural foraminal stenosis also noted at C6-7. No fracture is seen. No abnormal subluxation is seen. Impression: 1. Degenerative change is seen diffusely within the cervical spine. Previous surgery is noted. Minimal mastoid finding believed to be incidental. 2. No acute fracture or abnormal subluxation is appreciated. Diagnostic code #2 This report was dictated in [place] Standard Time
== END 2019-05-01 18:39 | disposition home or self-care (01) ==
LOC: JD.ED 15:14
DX: S33.5XXA Sprain of ligaments of lumbar spine, initial encounter (principal); S13.4XXA Sprain of ligaments of cervical spine, initial encounter; S00.03XA Contusion of scalp, initial encounter; Z88.0 Allergy status to penicillin; Z88.1 Allergy status to other antibiotic agents; Z79.4 Long term (current) use of insulin; Z79.82 Long term (current) use of aspirin; Z79.899 Other long term (current) drug therapy; I10 Essential (primary) hypertension; E11.9 Type 2 diabetes mellitus without complications; K21.9 Gastro-esophageal reflux disease without esophagitis; Z90.49 Acquired absence of other specified parts of digestive tract; Z90.710 Acquired absence of both cervix and uterus; W01.198A Fall on same level from slipping, tripping and stumbling with subsequent striking against other object, initial encounter
CPT/HCPCS: 36415; 70450; 72125; 72131; 80053; 85025; 85379; 96361; 96374; 96375; 96376; 99284; J1170; J2405; J7121

== ENCOUNTER 2019-05-16 07:13 | Emergency (ER) | payer MEDICAID ==
[2019-05-16 07:34] VITALS: BP 166/88
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
--- NOTE | 2019-05-16 09:52 | CR ---
Left foot: Four views of the left foot were obtained. Comparison: No prior foot exam. Prior surgery is noted within the distal first metatarsal. Orthopedic hardware is in place. Mild soft tissue swelling is identified. Part of the osteotomy line still remains visible. No erosive change is seen. No acute fracture or other bony abnormality is identified. Impression: 1. Prior surgery. Part of the osteotomy line remains visible. No focal erosions are seen. 2. Mild soft tissue swelling persists. 3. Nothing acute is otherwise seen. Diagnostic code #2 This report was dictated in [place] Standard Time
[2019-05-16] MEDS ORDERED: Ondansetron 4 MG Tab.DIS PO ONE (10:42)
[2019-05-16] MEDS ORDERED: traMADol 50 MG Tab PO ONE (11:53)
== END 2019-05-16 12:16 | disposition home or self-care (01) ==
LOC: JD.ED 07:13
DX: G89.18 Other acute postprocedural pain (principal); M79.672 Pain in left foot; E11.36 Type 2 diabetes mellitus with diabetic cataract; H26.9 Unspecified cataract; E78.00 Pure hypercholesterolemia, unspecified; I10 Essential (primary) hypertension; K21.9 Gastro-esophageal reflux disease without esophagitis; F41.9 Anxiety disorder, unspecified; F32.9 Major depressive disorder, single episode, unspecified; R56.9 Unspecified convulsions; Z88.8 Allergy status to other drugs, medicaments and biological substances; Z88.1 Allergy status to other antibiotic agents; Z88.5 Allergy status to narcotic agent; Z88.0 Allergy status to penicillin; Z88.6 Allergy status to analgesic agent; Z79.82 Long term (current) use of aspirin; Z79.899 Other long term (current) drug therapy; Z79.51 Long term (current) use of inhaled steroids; Z79.4 Long term (current) use of insulin
CPT/HCPCS: 36415; 73630; 80053; 84550; 85025; 85652; 86140; 99284; A9270; 99283

== ENCOUNTER 2019-07-11 19:33 | Emergency (ER) | payer MEDICAID, OTHER, SELFPAY ==
[2019-07-11] MEDS ORDERED: Ketorolac 30 MG/ML SDV IVPUSH ONE (19:59)
[2019-07-11] MEDS ORDERED: Sodium Chloride 0.9% 10 ML Syringe FLUSH PRN (19:59)
[2019-07-11] MEDS ORDERED: Metoclopramide 10 MG/2 ML SDV IVPUSH ONE (19:59)
[2019-07-11] MEDS ORDERED: Sodium Chloride 0.9% 1,000 ML IV SCH (20:00)
[2019-07-11 20:03] VITALS: BP 141/76; PULSE 95
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
[2019-07-11] MEDS ORDERED: HYDROmorphone 0.5 MG/0.5 ML Syringe IVPUSH ONE (21:10)
== END 2019-07-11 21:45 | disposition home or self-care (01) ==
LOC: JD.ED 19:33
DX: G44.40 Drug-induced headache, not elsewhere classified, not intractable (principal); T46.5X5A Adverse effect of other antihypertensive drugs, initial encounter; K21.9 Gastro-esophageal reflux disease without esophagitis; F41.9 Anxiety disorder, unspecified; F32.9 Major depressive disorder, single episode, unspecified; Z88.8 Allergy status to other drugs, medicaments and biological substances; Z88.0 Allergy status to penicillin; Z79.82 Long term (current) use of aspirin; Z79.899 Other long term (current) drug therapy
CPT/HCPCS: 36415; 80053; 85025; 96361; 96374; 96375; 99284; J1170; J1885; J2765; J7030

== ENCOUNTER 2019-08-10 17:26 | Emergency (ER) | payer MEDICAID ==
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
[2019-08-10] MEDS ORDERED: LORazepam 0.5 MG Tab PO ONE (19:20)
[2019-08-10 20:01] VITALS: BP 132/85; PULSE 98
== END 2019-08-10 20:50 ==
LOC: JD.ED 17:26
DX: F32.9 Major depressive disorder, single episode, unspecified (principal); E78.00 Pure hypercholesterolemia, unspecified; E11.9 Type 2 diabetes mellitus without complications; E66.9 Obesity, unspecified; Z68.30 Body mass index [BMI] 30.0-30.9, adult; M19.90 Unspecified osteoarthritis, unspecified site; I10 Essential (primary) hypertension; J45.909 Unspecified asthma, uncomplicated; Z86.711 Personal history of pulmonary embolism; K21.9 Gastro-esophageal reflux disease without esophagitis; Z79.82 Long term (current) use of aspirin; Z79.84 Long term (current) use of oral hypoglycemic drugs; Z79.899 Other long term (current) drug therapy; Z88.8 Allergy status to other drugs, medicaments and biological substances; Z88.1 Allergy status to other antibiotic agents; Z88.0 Allergy status to penicillin
CPT/HCPCS: 36415; 80053; 80306; 80307; 84443; 85007; 85027; 93005; 99285; A9270; 93010

== ENCOUNTER 2019-09-04 14:58 | Emergency (ER) | payer MEDICAID, OTHER, SELFPAY ==
[2019-09-04 15:07] VITALS: BP 159/83; PULSE 79
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
[2019-09-04] MEDS ORDERED: LORazepam 2 MG/ML SDV IVPUSH STA (16:06)
[2019-09-04] MEDS ORDERED: LORazepam 1 MG Tab PO STA (16:11)
[2019-09-04 16:33] LABS: ACETAMINOPHEN 0 ug/mL (10-30)
[2019-09-04 16:35] LABS: HEMOGLOBIN A1C 7.2 % (4.50-6.20)
[2019-09-04] MEDS ORDERED: LORazepam 1 MG Tab PO ONE (17:33)
== END 2019-09-04 17:43 ==
LOC: JD.ED 14:58
DX: F32.2 Major depressive disorder, single episode, severe without psychotic features (principal); F19.10 Other psychoactive substance abuse, uncomplicated; I10 Essential (primary) hypertension; J45.909 Unspecified asthma, uncomplicated; K21.9 Gastro-esophageal reflux disease without esophagitis; M19.90 Unspecified osteoarthritis, unspecified site; F41.9 Anxiety disorder, unspecified; F32.9 Major depressive disorder, single episode, unspecified; E11.9 Type 2 diabetes mellitus without complications; E66.9 Obesity, unspecified; Z68.31 Body mass index [BMI] 31.0-31.9, adult; Z79.82 Long term (current) use of aspirin; Z79.899 Other long term (current) drug therapy; Z79.84 Long term (current) use of oral hypoglycemic drugs; Z88.0 Allergy status to penicillin; Z88.8 Allergy status to other drugs, medicaments and biological substances; Z88.1 Allergy status to other antibiotic agents; Z91.5 Personal history of self-harm
CPT/HCPCS: 36415; 80053; 80306; 80307; 81001; 83036; 84443; 85025; 93005; 99285; A9270; 93010

== ENCOUNTER 2019-11-06 09:36 | Emergency (ER) | payer MEDICAID ==
[2019-11-06 09:50] VITALS: BP 154/82; PULSE 80
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
[2019-11-06] MEDS ORDERED: HYDROmorphone 1 MG/ML Syringe IVPUSH ONE (09:57)
[2019-11-06] MEDS ORDERED: diphenhydrAMINE 50 MG/ML SDV IVPUSH ONE (09:57)
[2019-11-06] MEDS ORDERED: Metoclopramide 10 MG/2 ML SDV IVPUSH ONE (09:57)
[2019-11-06] MEDS ORDERED: Ketorolac 30 MG/ML SDV IVPUSH SCH (10:00)
[2019-11-06] MEDS ORDERED: Dextrose 5%-0.9% NaCl 1,000 ML IV SCH (10:00)
== END 2019-11-06 11:14 | disposition home or self-care (01) ==
LOC: JD.ED 09:36
DX: G43.909 Migraine, unspecified, not intractable, without status migrainosus (principal); R11.2 Nausea with vomiting, unspecified; I10 Essential (primary) hypertension; E78.00 Pure hypercholesterolemia, unspecified; E11.9 Type 2 diabetes mellitus without complications; E66.9 Obesity, unspecified; F41.9 Anxiety disorder, unspecified; F32.9 Major depressive disorder, single episode, unspecified; K21.9 Gastro-esophageal reflux disease without esophagitis; J45.909 Unspecified asthma, uncomplicated; Z88.8 Allergy status to other drugs, medicaments and biological substances; Z88.0 Allergy status to penicillin; Z79.82 Long term (current) use of aspirin; Z79.899 Other long term (current) drug therapy
CPT/HCPCS: 96361; 96374; 96375; 99284; J1170; J1200; J1885; J2765; J7042; 99283

== ENCOUNTER 2019-11-21 08:10 | Emergency (ER) | payer MEDICAID ==
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
[2019-11-21] MEDS ORDERED: LORazepam 1 MG Tab PO ONE ×2 (09:34→12:34)
[2019-11-21 12:44] VITALS: BP 165/87; PULSE 71
== END 2019-11-21 13:12 ==
LOC: JD.ED 08:10
DX: F33.2 Major depressive disorder, recurrent severe without psychotic features (principal); I10 Essential (primary) hypertension; J45.909 Unspecified asthma, uncomplicated; K21.9 Gastro-esophageal reflux disease without esophagitis; M19.90 Unspecified osteoarthritis, unspecified site; F41.9 Anxiety disorder, unspecified; E11.9 Type 2 diabetes mellitus without complications; E66.9 Obesity, unspecified; Z68.29 Body mass index [BMI] 29.0-29.9, adult; Z20.828 Contact with and (suspected) exposure to other viral communicable diseases; Z88.8 Allergy status to other drugs, medicaments and biological substances; Z88.1 Allergy status to other antibiotic agents; Z88.0 Allergy status to penicillin; Z79.82 Long term (current) use of aspirin; Z79.899 Other long term (current) drug therapy
CPT/HCPCS: 36415; 80053; 80306; 80307; 84443; 85025; 87635; 99285; A9270; U0002

== ENCOUNTER 2019-12-09 16:08 | Emergency (ER) | payer MEDICAID, OTHER, SELFPAY ==
[2019-12-09 16:53] VITALS: BP 150/86; PULSE 83
[2019-12-09] MEDS ORDERED: diphenhydrAMINE 50 MG/ML SDV IVPUSH ONE (18:17)
[2019-12-09] MEDS ORDERED: Ketorolac 30 MG/ML SDV IVPUSH ONE (18:17)
[2019-12-09] MEDS ORDERED: Sodium Chloride 0.9% 1,000 ML IV ONE (18:17)
[2019-12-09] MEDS ORDERED: Sodium Chloride 0.9% 10 ML Syringe FLUSH PRN (18:17)
[2019-12-09] MEDS ORDERED: Metoclopramide 10 MG/2 ML SDV IVPUSH ONE (18:17)
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
[2019-12-09] MEDS ORDERED: HYDROmorphone 1 MG/ML Syringe IVPUSH ONE (19:05)
== END 2019-12-09 20:22 | disposition home or self-care (01) ==
LOC: JD.ED 16:08
DX: G44.209 Tension-type headache, unspecified, not intractable (principal); I10 Essential (primary) hypertension; E78.00 Pure hypercholesterolemia, unspecified; J45.909 Unspecified asthma, uncomplicated; K21.9 Gastro-esophageal reflux disease without esophagitis; M19.90 Unspecified osteoarthritis, unspecified site; F41.9 Anxiety disorder, unspecified; F32.9 Major depressive disorder, single episode, unspecified; E11.9 Type 2 diabetes mellitus without complications; E66.9 Obesity, unspecified; Z68.30 Body mass index [BMI] 30.0-30.9, adult; Z79.82 Long term (current) use of aspirin; Z79.899 Other long term (current) drug therapy; Z88.8 Allergy status to other drugs, medicaments and biological substances; Z88.1 Allergy status to other antibiotic agents; Z88.0 Allergy status to penicillin
CPT/HCPCS: 96361; 96374; 96375; 99283; J1170; J1200; J1885; J2765; J7030

== ENCOUNTER 2019-12-15 09:11 | Emergency (ER) | payer MEDICAID ==
[2019-12-15 09:21] VITALS: BP 154/91; PULSE 95
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
== END 2019-12-15 10:00 | disposition home or self-care (01) ==
LOC: JD.ED 09:11
DX: L03.115 Cellulitis of right lower limb (principal); I10 Essential (primary) hypertension; J45.909 Unspecified asthma, uncomplicated; M19.90 Unspecified osteoarthritis, unspecified site; E11.9 Type 2 diabetes mellitus without complications; E66.9 Obesity, unspecified; Z68.31 Body mass index [BMI] 31.0-31.9, adult; Z86.711 Personal history of pulmonary embolism; Z88.1 Allergy status to other antibiotic agents; Z88.8 Allergy status to other drugs, medicaments and biological substances; Z88.0 Allergy status to penicillin; Z79.82 Long term (current) use of aspirin; Z79.84 Long term (current) use of oral hypoglycemic drugs; Z79.899 Other long term (current) drug therapy
CPT/HCPCS: 99283

== ENCOUNTER 2020-01-12 13:56 | Emergency (ER) | payer MEDICAID, OTHER ==
[2020-01-12 14:23] VITALS: BP 106/86; PULSE 88
[2020-01-12] MEDS ORDERED: Ketorolac 60 MG/2 ML SDV IM ONE (15:55)
--- NOTE | 2020-01-12 15:56 | CR ---
Chest: Portable view of the chest was obtained. Comparison: Prior chest x-ray of 11/13/18. Heart size and mediastinum are normal. Lungs are clear with no acute parenchymal change. Prior cervical spine surgery is noted. Surgical clips are seen within the upper right abdomen. Impression: 1. Nothing acute is seen on portable chest x-ray. Diagnostic code #2 Study was dictated in MDT
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
== END 2020-01-12 16:24 | disposition home or self-care (01) ==
LOC: JD.ED 13:56
DX: J98.8 Other specified respiratory disorders (principal); B97.89 Other viral agents as the cause of diseases classified elsewhere; J45.909 Unspecified asthma, uncomplicated; I10 Essential (primary) hypertension; M19.90 Unspecified osteoarthritis, unspecified site; F41.9 Anxiety disorder, unspecified; F32.9 Major depressive disorder, single episode, unspecified; E11.9 Type 2 diabetes mellitus without complications; K21.9 Gastro-esophageal reflux disease without esophagitis; E66.9 Obesity, unspecified; Z68.31 Body mass index [BMI] 31.0-31.9, adult; Z88.0 Allergy status to penicillin; Z88.8 Allergy status to other drugs, medicaments and biological substances; Z88.1 Allergy status to other antibiotic agents; Z86.711 Personal history of pulmonary embolism; Z79.82 Long term (current) use of aspirin
CPT/HCPCS: 71045; 87635; 96372; 99284; J1885; 99282; U0002

== ENCOUNTER 2020-01-28 08:29 | Emergency (ER) | payer MEDICAID, OTHER ==
[2020-01-28 09:08] VITALS: BP 164/84; PULSE 107
[2020-01-28] MEDS ORDERED: Metoclopramide 10 MG/2 ML SDV IVPUSH ONE (09:09)
[2020-01-28] MEDS ORDERED: HYDROmorphone 1 MG/ML Syringe IVPUSH ONE (09:09)
[2020-01-28] MEDS ORDERED: diphenhydrAMINE 50 MG/ML SDV IVPUSH ONE (09:09)
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
[2020-01-28] MEDS ORDERED: Dextrose 5%-0.9% NaCl 1,000 ML IV SCH (09:15)
[2020-01-28] MEDS ORDERED: Ketorolac 30 MG/ML SDV IVPUSH SCH (09:30)
== END 2020-01-28 11:10 | disposition home or self-care (01) ==
LOC: JD.ED 08:29
DX: G43.909 Migraine, unspecified, not intractable, without status migrainosus (principal); I10 Essential (primary) hypertension; E78.00 Pure hypercholesterolemia, unspecified; J45.909 Unspecified asthma, uncomplicated; K21.9 Gastro-esophageal reflux disease without esophagitis; M19.90 Unspecified osteoarthritis, unspecified site; F41.9 Anxiety disorder, unspecified; F32.9 Major depressive disorder, single episode, unspecified; E11.9 Type 2 diabetes mellitus without complications; E66.9 Obesity, unspecified; Z68.31 Body mass index [BMI] 31.0-31.9, adult; Z90.49 Acquired absence of other specified parts of digestive tract; Z90.710 Acquired absence of both cervix and uterus; Z88.8 Allergy status to other drugs, medicaments and biological substances; Z88.1 Allergy status to other antibiotic agents; Z88.0 Allergy status to penicillin; Z79.82 Long term (current) use of aspirin; Z79.899 Other long term (current) drug therapy; Z79.84 Long term (current) use of oral hypoglycemic drugs
CPT/HCPCS: 96361; 96374; 96375; 99283; J1170; J1200; J1885; J2765; J7042

== ENCOUNTER 2020-02-25 10:38 | Emergency (ER) | payer MEDICAID ==
[2020-02-25 10:57] VITALS: BP 155/87; PULSE 105
[2020-02-25] MEDS ORDERED: Sodium Chloride 0.9% 10 ML Syringe FLUSH PRN (11:06)
[2020-02-25] MEDS ORDERED: Ketorolac 30 MG/ML SDV IVPUSH ONE (11:06)
[2020-02-25] MEDS ORDERED: diphenhydrAMINE 50 MG/ML SDV IVPUSH ONE (11:06)
[2020-02-25] MEDS ORDERED: Sodium Chloride 0.9% 1,000 ML IV ONE (11:06)
[2020-02-25] MEDS ORDERED: Metoclopramide 10 MG/2 ML SDV IVPUSH ONE (11:06)
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
[2020-02-25] MEDS ORDERED: HYDROmorphone 0.5 MG/0.5 ML Syringe IVPUSH ONE (11:37)
== END 2020-02-25 12:45 | disposition home or self-care (01) ==
LOC: JD.ED 10:38
DX: G43.009 Migraine without aura, not intractable, without status migrainosus (principal); E78.00 Pure hypercholesterolemia, unspecified; I10 Essential (primary) hypertension; J45.909 Unspecified asthma, uncomplicated; K21.9 Gastro-esophageal reflux disease without esophagitis; M19.90 Unspecified osteoarthritis, unspecified site; F41.9 Anxiety disorder, unspecified; F32.9 Major depressive disorder, single episode, unspecified; E11.9 Type 2 diabetes mellitus without complications; E66.9 Obesity, unspecified; Z68.31 Body mass index [BMI] 31.0-31.9, adult; Z88.1 Allergy status to other antibiotic agents; Z88.8 Allergy status to other drugs, medicaments and biological substances; Z88.0 Allergy status to penicillin; Z79.84 Long term (current) use of oral hypoglycemic drugs; Z79.899 Other long term (current) drug therapy; Z79.82 Long term (current) use of aspirin
CPT/HCPCS: 96374; 96375; 99283; J1170; J1200; J1885; J2765; J7030

== ENCOUNTER 2020-02-26 10:12 | Emergency (ER) | payer MEDICAID ==
[2020-02-26 11:02] VITALS: BP 160/86; PULSE 78
[2020-02-26] MEDS ORDERED: Sodium Chloride 0.9% 1,000 ML IV STA (11:33)
[2020-02-26] MEDS ORDERED: Metoclopramide 10 MG/2 ML SDV IVPUSH ONE (11:33)
[2020-02-26] MEDS ORDERED: diphenhydrAMINE 50 MG/ML SDV IVPUSH ONE (11:33)
[2020-02-26] MEDS ORDERED: Ketorolac 30 MG/ML SDV IVPUSH ONE (11:33)
[2020-02-26] MEDS ORDERED: HYDROmorphone 0.5 MG/0.5 ML Syringe IVPUSH ONE (12:25)
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
== END 2020-02-26 13:10 | disposition home or self-care (01) ==
LOC: JD.ED 10:12
DX: G43.909 Migraine, unspecified, not intractable, without status migrainosus (principal); I10 Essential (primary) hypertension; E78.00 Pure hypercholesterolemia, unspecified; J45.909 Unspecified asthma, uncomplicated; K21.9 Gastro-esophageal reflux disease without esophagitis; E66.9 Obesity, unspecified; E11.9 Type 2 diabetes mellitus without complications; F41.9 Anxiety disorder, unspecified; F32.9 Major depressive disorder, single episode, unspecified; Z88.1 Allergy status to other antibiotic agents; Z88.0 Allergy status to penicillin; Z88.8 Allergy status to other drugs, medicaments and biological substances; Z79.82 Long term (current) use of aspirin; Z79.899 Other long term (current) drug therapy; Z90.49 Acquired absence of other specified parts of digestive tract; Z90.710 Acquired absence of both cervix and uterus
CPT/HCPCS: 96374; 96375; 99283; J1170; J1200; J1885; J2765; J7030

== ENCOUNTER 2020-03-11 14:04 | Emergency (ER) | payer MEDICAID, SELFPAY ==
[2020-03-11 14:17] VITALS: BP 174/83; PULSE 77
[2020-03-11] MEDS ORDERED: Sodium Chloride 0.9% 10 ML Syringe FLUSH PRN (14:30)
[2020-03-11] MEDS ORDERED: Ketorolac 30 MG/ML SDV IVPUSH ONE (14:31)
[2020-03-11] MEDS ORDERED: Ondansetron 4 MG/2 ML SDV IVPUSH ONE (14:32)
[2020-03-11] MEDS ORDERED: diphenhydrAMINE 50 MG/ML SDV IVPUSH ONE (14:32)
[2020-03-11] MEDS ORDERED: Sodium Chloride 0.9% 1,000 ML IV ONE (14:33)
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
[2020-03-11] MEDS ORDERED: HYDROmorphone 1 MG/ML Syringe IVPUSH ONE (15:11)
[2020-03-11] MEDS ORDERED: HYDROmorphone 0.5 MG/0.5 ML Syringe IVPUSH ONE (15:44)
== END 2020-03-11 16:00 | disposition home or self-care (01) ==
LOC: JD.ED 14:04
DX: G43.909 Migraine, unspecified, not intractable, without status migrainosus (principal); I10 Essential (primary) hypertension; J45.909 Unspecified asthma, uncomplicated; K21.9 Gastro-esophageal reflux disease without esophagitis; M19.90 Unspecified osteoarthritis, unspecified site; F41.9 Anxiety disorder, unspecified; F32.9 Major depressive disorder, single episode, unspecified; E11.9 Type 2 diabetes mellitus without complications; E66.9 Obesity, unspecified; Z68.29 Body mass index [BMI] 29.0-29.9, adult; Z88.8 Allergy status to other drugs, medicaments and biological substances; Z88.1 Allergy status to other antibiotic agents; Z88.0 Allergy status to penicillin; Z79.82 Long term (current) use of aspirin; Z79.899 Other long term (current) drug therapy
CPT/HCPCS: 96374; 96375; 96376; 99283; J1170; J1200; J1885; J2405; J7030

== ENCOUNTER 2020-03-24 08:42 | Emergency (ER) | payer MEDICAID ==
[2020-03-24 08:53] VITALS: BP 138/80
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
[2020-03-24] MEDS ORDERED: Lactated Ringers 1,000 ML IV ONE (09:02)
[2020-03-24] MEDS ORDERED: Metoclopramide 10 MG/2 ML SDV IVPUSH ONE (09:02)
[2020-03-24] MEDS ORDERED: diphenhydrAMINE 50 MG/ML SDV IVPUSH ONE (09:02)
[2020-03-24] MEDS ORDERED: HYDROmorphone 0.5 MG/0.5 ML Syringe IVPUSH ONE (10:03)
[2020-03-24 11:26] VITALS: PULSE 70
== END 2020-03-24 11:26 | disposition home or self-care (01) ==
LOC: JD.ED 08:42
DX: G44.40 Drug-induced headache, not elsewhere classified, not intractable (principal); G44.209 Tension-type headache, unspecified, not intractable; I10 Essential (primary) hypertension; K21.9 Gastro-esophageal reflux disease without esophagitis; M19.90 Unspecified osteoarthritis, unspecified site; J45.909 Unspecified asthma, uncomplicated; E11.9 Type 2 diabetes mellitus without complications; F41.9 Anxiety disorder, unspecified; F32.9 Major depressive disorder, single episode, unspecified; Z79.82 Long term (current) use of aspirin; Z79.84 Long term (current) use of oral hypoglycemic drugs; Z79.899 Other long term (current) drug therapy; Z88.8 Allergy status to other drugs, medicaments and biological substances; Z88.1 Allergy status to other antibiotic agents; Z88.0 Allergy status to penicillin
CPT/HCPCS: 96374; 96375; 99283; J1170; J1200; J2765; J7120

== ENCOUNTER 2020-04-06 12:13 | Emergency (ER) | payer MEDICAID ==
[2020-04-06] MEDS ORDERED: Ketorolac 30 MG/ML SDV IVPUSH ONE (12:41)
[2020-04-06] MEDS ORDERED: diphenhydrAMINE 50 MG/ML SDV IVPUSH ONE (12:41)
[2020-04-06] MEDS ORDERED: Sodium Chloride 0.9% 1,000 ML IV STA (12:41)
[2020-04-06] MEDS ORDERED: Ondansetron 4 MG/2 ML SDV IVPUSH ONE (12:41)
[2020-04-06] MEDS ORDERED: HYDROmorphone 0.5 MG/0.5 ML Syringe IVPUSH ONE ×2 (12:42→14:00)
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
[2020-04-06 15:02] VITALS: BP 115/62; PULSE 70
== END 2020-04-06 15:03 | disposition home or self-care (01) ==
LOC: JD.ED 12:13
DX: G43.009 Migraine without aura, not intractable, without status migrainosus (principal); E78.00 Pure hypercholesterolemia, unspecified; J45.909 Unspecified asthma, uncomplicated; K21.9 Gastro-esophageal reflux disease without esophagitis; M19.90 Unspecified osteoarthritis, unspecified site; E11.9 Type 2 diabetes mellitus without complications; Z88.8 Allergy status to other drugs, medicaments and biological substances; Z88.1 Allergy status to other antibiotic agents; Z88.0 Allergy status to penicillin; Z79.82 Long term (current) use of aspirin; Z79.84 Long term (current) use of oral hypoglycemic drugs; Z79.899 Other long term (current) drug therapy; F41.9 Anxiety disorder, unspecified; F32.9 Major depressive disorder, single episode, unspecified
CPT/HCPCS: 96374; 96375; 96376; 99283; J1170; J1200; J1885; J2405; J7030

== ENCOUNTER 2020-04-09 15:00 | Emergency (ER) | payer MEDICAID ==
[2020-04-09 15:24] VITALS: BP 146/82; PULSE 74
[2020-04-09] MEDS ORDERED: Ketorolac 30 MG/ML SDV IVPUSH ONE (15:48)
[2020-04-09] MEDS ORDERED: Sodium Chloride 0.9% 1,000 ML IV ONE (15:48)
[2020-04-09] MEDS ORDERED: Metoclopramide 10 MG/2 ML SDV IVPUSH ONE (15:48)
[2020-04-09] MEDS ORDERED: diphenhydrAMINE 50 MG/ML SDV IVPUSH ONE (15:48)
[2020-04-09] MEDS ORDERED: Sodium Chloride 0.9% 10 ML Syringe FLUSH PRN (15:48)
[2020-04-09] MEDS ORDERED: HYDROmorphone 1 MG/ML Syringe IVPUSH ONE (15:51)
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
[2020-04-09] MEDS ORDERED: HYDROmorphone 0.5 MG/0.5 ML Syringe IVPUSH ONE (17:08)
== END 2020-04-09 18:00 | disposition home or self-care (01) ==
LOC: JD.ED 15:00
DX: G43.009 Migraine without aura, not intractable, without status migrainosus (principal); I10 Essential (primary) hypertension; J45.909 Unspecified asthma, uncomplicated; K21.9 Gastro-esophageal reflux disease without esophagitis; M19.90 Unspecified osteoarthritis, unspecified site; F41.9 Anxiety disorder, unspecified; F32.9 Major depressive disorder, single episode, unspecified; E11.9 Type 2 diabetes mellitus without complications; Z88.8 Allergy status to other drugs, medicaments and biological substances; Z88.1 Allergy status to other antibiotic agents; Z88.0 Allergy status to penicillin; Z79.82 Long term (current) use of aspirin; Z79.899 Other long term (current) drug therapy
CPT/HCPCS: 96374; 96375; 96376; 99283; J1170; J1200; J1885; J2765; J7030

== ENCOUNTER 2020-04-20 13:51 | Emergency (ER) | payer MEDICAID ==
[2020-04-20 14:02] VITALS: BP 180/94; PULSE 88
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
[2020-04-20] MEDS ORDERED: HYDROmorphone 0.5 MG/0.5 ML Syringe IVPUSH ONE ×2 (14:12→15:21)
[2020-04-20] MEDS ORDERED: Ketorolac 15 MG/ML SDV IVPUSH ONE (14:12)
[2020-04-20] MEDS ORDERED: Lactated Ringers 1,000 ML IV ONE (14:12)
[2020-04-20] MEDS ORDERED: Ondansetron 4 MG/2 ML SDV IVPUSH ONE (14:12)
== END 2020-04-20 16:18 | disposition home or self-care (01) ==
LOC: JD.ED 13:51
DX: G43.009 Migraine without aura, not intractable, without status migrainosus (principal); G44.209 Tension-type headache, unspecified, not intractable; I10 Essential (primary) hypertension; J45.909 Unspecified asthma, uncomplicated; K21.9 Gastro-esophageal reflux disease without esophagitis; M19.90 Unspecified osteoarthritis, unspecified site; F41.9 Anxiety disorder, unspecified; F32.9 Major depressive disorder, single episode, unspecified; E11.9 Type 2 diabetes mellitus without complications; Z88.8 Allergy status to other drugs, medicaments and biological substances; Z88.1 Allergy status to other antibiotic agents; Z88.0 Allergy status to penicillin; Z79.82 Long term (current) use of aspirin; Z79.84 Long term (current) use of oral hypoglycemic drugs; Z79.899 Other long term (current) drug therapy
CPT/HCPCS: 96374; 96375; 96376; 99283; J1170; J1885; J2405; J7120

== ENCOUNTER 2020-04-22 13:10 | Emergency (ER) | payer MEDICAID ==
[2020-04-22 13:24] VITALS: BP 170/92; PULSE 88
[2020-04-22] MEDS ORDERED: Dextrose 5%-0.9% NaCl 1,000 ML IV SCH (13:30)
[2020-04-22] MEDS ORDERED: diphenhydrAMINE 50 MG/ML SDV IVPUSH ONE (13:31)
[2020-04-22] MEDS ORDERED: Metoclopramide 10 MG/2 ML SDV IVPUSH ONE (13:31)
[2020-04-22] MEDS ORDERED: HYDROmorphone 1 MG/ML Syringe IVPUSH ONE (13:31)
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
[2020-04-22] MEDS ORDERED: Ketorolac 30 MG/ML SDV IVPUSH SCH (13:45)
[2020-04-22] MEDS ORDERED: HYDROmorphone 0.5 MG/0.5 ML Syringe IVPUSH ONE (14:54)
== END 2020-04-22 15:45 | disposition home or self-care (01) ==
LOC: JD.ED 13:10
DX: G43.009 Migraine without aura, not intractable, without status migrainosus (principal); I10 Essential (primary) hypertension; J45.909 Unspecified asthma, uncomplicated; E11.9 Type 2 diabetes mellitus without complications; K21.9 Gastro-esophageal reflux disease without esophagitis; M19.90 Unspecified osteoarthritis, unspecified site; F41.9 Anxiety disorder, unspecified; F32.9 Major depressive disorder, single episode, unspecified; Z88.8 Allergy status to other drugs, medicaments and biological substances; Z88.1 Allergy status to other antibiotic agents; Z88.0 Allergy status to penicillin; Z79.82 Long term (current) use of aspirin; Z79.84 Long term (current) use of oral hypoglycemic drugs; Z79.899 Other long term (current) drug therapy; Z86.711 Personal history of pulmonary embolism
CPT/HCPCS: 96374; 96375; 96376; 99283; J1170; J1200; J1885; J2765; J7042

== ENCOUNTER 2020-05-06 11:19 | Emergency (ER) | payer MEDICAID ==
[2020-05-06 11:36] VITALS: BP 177/83; PULSE 100
[2020-05-06] MEDS ORDERED: diphenhydrAMINE 50 MG/ML SDV IVPUSH ONE (12:01)
[2020-05-06] MEDS ORDERED: Metoclopramide 10 MG/2 ML SDV IVPUSH ONE (12:01)
[2020-05-06] MEDS ORDERED: Ketorolac 30 MG/ML SDV IVPUSH ONE (12:01)
[2020-05-06] MEDS ORDERED: Sodium Chloride 0.9% 10 ML Syringe FLUSH PRN (12:01)
[2020-05-06] MEDS ORDERED: Sodium Chloride 0.9% 1,000 ML IV ONE (12:01)
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
[2020-05-06] MEDS ORDERED: HYDROmorphone 0.5 MG/0.5 ML Syringe IVPUSH ONE ×2 (12:02→13:53)
== END 2020-05-06 14:05 | disposition home or self-care (01) ==
LOC: JD.ED 11:19
DX: R51.9 Headache, unspecified (principal); I10 Essential (primary) hypertension; J45.909 Unspecified asthma, uncomplicated; M19.90 Unspecified osteoarthritis, unspecified site; K21.9 Gastro-esophageal reflux disease without esophagitis; E11.9 Type 2 diabetes mellitus without complications; Z88.8 Allergy status to other drugs, medicaments and biological substances; Z88.1 Allergy status to other antibiotic agents; Z88.0 Allergy status to penicillin; Z79.82 Long term (current) use of aspirin; Z79.84 Long term (current) use of oral hypoglycemic drugs; Z79.899 Other long term (current) drug therapy
CPT/HCPCS: 96374; 96375; 96376; 99283; J1170; J1200; J1885; J2765; J7030

== ENCOUNTER 2020-05-21 12:10 | Emergency (ER) | payer MEDICAID ==
[2020-05-21] MEDS ORDERED: Metoclopramide 10 MG/2 ML SDV IVPUSH ONE (12:30)
[2020-05-21] MEDS ORDERED: HYDROmorphone 1 MG/ML Syringe IVPUSH ONE ×2 (12:30→14:30)
[2020-05-21] MEDS ORDERED: Sodium Chloride 0.9% 10 ML Syringe FLUSH PRN (12:30)
[2020-05-21] MEDS ORDERED: diphenhydrAMINE 50 MG/ML SDV IVPUSH ONE (12:31)
[2020-05-21] MEDS ORDERED: Ketorolac 30 MG/ML SDV IVPUSH ONE (12:31)
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
[2020-05-21 15:30] VITALS: BP 130/78; PULSE 88
== END 2020-05-21 15:09 | disposition home or self-care (01) ==
LOC: JD.ED 12:10
DX: G43.909 Migraine, unspecified, not intractable, without status migrainosus (principal); K21.9 Gastro-esophageal reflux disease without esophagitis; J45.909 Unspecified asthma, uncomplicated; M19.90 Unspecified osteoarthritis, unspecified site; E11.9 Type 2 diabetes mellitus without complications; Z88.8 Allergy status to other drugs, medicaments and biological substances; Z88.1 Allergy status to other antibiotic agents; Z88.0 Allergy status to penicillin; Z88.2 Allergy status to sulfonamides; Z79.82 Long term (current) use of aspirin; Z79.84 Long term (current) use of oral hypoglycemic drugs; Z79.899 Other long term (current) drug therapy; Z86.711 Personal history of pulmonary embolism
CPT/HCPCS: 96374; 96375; 96376; 99283; J1170; J1200; J1885; J2765

== ENCOUNTER 2020-05-23 12:56 | Emergency (ER) | payer MEDICAID ==
[2020-05-23 13:16] VITALS: BP 196/97; PULSE 88
[2020-05-23] MEDS ORDERED: Sodium Chloride 0.9% 1,000 ML IV STA (13:21)
[2020-05-23] MEDS: Sodium Chloride 0.9% 1,000 ML IV STA (13:56)
[2020-05-23] MEDS: Ketorolac 30 MG/ML SDV IVPUSH ONE (13:57)
[2020-05-23] MEDS: Metoclopramide 10 MG/2 ML SDV IVPUSH ONE (13:58)
[2020-05-23] MEDS: HYDROmorphone 0.5 MG/0.5 ML Syringe IVPUSH ONE (13:58)
[2020-05-23] MEDS: diphenhydrAMINE 50 MG/ML SDV IVPUSH ONE (13:59)
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
== END 2020-05-23 14:50 | disposition home or self-care (01) ==
LOC: JD.ED 12:56
DX: G43.909 Migraine, unspecified, not intractable, without status migrainosus (principal); I10 Essential (primary) hypertension; J45.909 Unspecified asthma, uncomplicated; K21.9 Gastro-esophageal reflux disease without esophagitis; M19.90 Unspecified osteoarthritis, unspecified site; E11.9 Type 2 diabetes mellitus without complications; Z88.8 Allergy status to other drugs, medicaments and biological substances; Z88.1 Allergy status to other antibiotic agents; Z88.0 Allergy status to penicillin; Z79.82 Long term (current) use of aspirin; Z79.899 Other long term (current) drug therapy
CPT/HCPCS: 96374; 96375; 99283; J1170; J1200; J1885; J2765; J7030

== ENCOUNTER 2020-06-04 15:57 | Emergency (ER) | payer MEDICAID ==
[2020-06-04 16:06] VITALS: PULSE 103
[2020-06-04] MEDS ORDERED: Ketorolac 30 MG/ML SDV IVPUSH ONE (16:30)
[2020-06-04] MEDS ORDERED: diphenhydrAMINE 50 MG/ML SDV IVPUSH ONE (16:30)
[2020-06-04] MEDS ORDERED: Metoclopramide 10 MG/2 ML SDV IVPUSH ONE (16:30)
[2020-06-04] MEDS ORDERED: Sodium Chloride 0.9% 1,000 ML IV ONE (16:30)
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
[2020-06-04] MEDS ORDERED: HYDROmorphone 0.5 MG/0.5 ML Syringe IVPUSH ONE (17:38)
== END 2020-06-04 18:20 | disposition home or self-care (01) ==
LOC: JD.ED 15:57
DX: G43.009 Migraine without aura, not intractable, without status migrainosus (principal); I10 Essential (primary) hypertension; J45.909 Unspecified asthma, uncomplicated; K21.9 Gastro-esophageal reflux disease without esophagitis; M19.90 Unspecified osteoarthritis, unspecified site; E11.9 Type 2 diabetes mellitus without complications; Z88.8 Allergy status to other drugs, medicaments and biological substances; Z88.1 Allergy status to other antibiotic agents; Z88.0 Allergy status to penicillin; Z79.82 Long term (current) use of aspirin; Z79.899 Other long term (current) drug therapy
CPT/HCPCS: 96374; 96375; 99283; J1170; J1200; J1885; J2765; J7030; 99284

== ENCOUNTER 2020-06-15 12:43 | Emergency (ER) | payer MEDICAID ==
[2020-06-15] MEDS ORDERED: diphenhydrAMINE 50 MG/ML SDV IVPUSH ONE (14:08)
[2020-06-15] MEDS ORDERED: Metoclopramide 10 MG/2 ML SDV IVPUSH ONE (14:08)
[2020-06-15] MEDS ORDERED: Sodium Chloride 0.9% 10 ML Syringe FLUSH PRN (14:08)
[2020-06-15] MEDS ORDERED: Ketorolac 30 MG/ML SDV IVPUSH SCH (14:15)
[2020-06-15] MEDS ORDERED: Sodium Chloride 0.9% 1,000 ML IV SCH (14:15)
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
[2020-06-15] MEDS ORDERED: HYDROmorphone 0.5 MG/0.5 ML Syringe IVPUSH ONE (15:25)
[2020-06-15 17:09] VITALS: BP 150/68; PULSE 70
== END 2020-06-15 17:09 | disposition home or self-care (01) ==
LOC: JD.ED 12:43
DX: G43.909 Migraine, unspecified, not intractable, without status migrainosus (principal); I10 Essential (primary) hypertension; J45.909 Unspecified asthma, uncomplicated; K21.9 Gastro-esophageal reflux disease without esophagitis; M19.90 Unspecified osteoarthritis, unspecified site; E11.9 Type 2 diabetes mellitus without complications; Z88.8 Allergy status to other drugs, medicaments and biological substances; Z88.1 Allergy status to other antibiotic agents; Z88.0 Allergy status to penicillin; Z88.6 Allergy status to analgesic agent; Z79.82 Long term (current) use of aspirin; Z79.84 Long term (current) use of oral hypoglycemic drugs; Z79.899 Other long term (current) drug therapy
CPT/HCPCS: 96374; 96375; 99283; J1170; J1200; J1885; J2765; J7030

== ENCOUNTER 2020-06-19 16:45 | Emergency (ER) | payer MEDICAID ==
[2020-06-19] MEDS ORDERED: Ketorolac 30 MG/ML SDV IVPUSH ONE (17:25)
[2020-06-19] MEDS ORDERED: Metoclopramide 10 MG/2 ML SDV IVPUSH ONE (17:25)
[2020-06-19] MEDS ORDERED: diphenhydrAMINE 50 MG/ML SDV IVPUSH ONE (17:25)
[2020-06-19] MEDS ORDERED: Sodium Chloride 0.9% 10 ML Syringe FLUSH PRN (17:25)
[2020-06-19] MEDS ORDERED: Sodium Chloride 0.9% 1,000 ML IV ONE (17:25)
[2020-06-19] MEDS ORDERED: HYDROmorphone 0.5 MG/0.5 ML Syringe IVPUSH ONE (17:26)
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
[2020-06-19 19:11] VITALS: BP 189/89; PULSE 86
== END 2020-06-19 19:00 | disposition home or self-care (01) ==
LOC: JD.ED 16:45
DX: R51.9 Headache, unspecified (principal); E78.00 Pure hypercholesterolemia, unspecified; I10 Essential (primary) hypertension; J45.909 Unspecified asthma, uncomplicated; K21.9 Gastro-esophageal reflux disease without esophagitis; M19.90 Unspecified osteoarthritis, unspecified site; E11.9 Type 2 diabetes mellitus without complications; Z88.8 Allergy status to other drugs, medicaments and biological substances; Z88.1 Allergy status to other antibiotic agents; Z88.0 Allergy status to penicillin; Z79.82 Long term (current) use of aspirin; Z79.84 Long term (current) use of oral hypoglycemic drugs; Z79.899 Other long term (current) drug therapy
CPT/HCPCS: 96374; 96375; 99283; J1170; J1200; J1885; J2765; J7030

== ENCOUNTER 2020-07-01 09:46 | Emergency (ER) | payer MEDICAID ==
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
[2020-07-01] MEDS ORDERED: Lactated Ringers 1,000 ML IV ONE (10:25)
[2020-07-01] MEDS ORDERED: Metoclopramide 10 MG/2 ML SDV IVPUSH ONE (10:25)
[2020-07-01] MEDS ORDERED: Ketorolac 15 MG/ML SDV IVPUSH ONE (10:25)
[2020-07-01] MEDS ORDERED: diphenhydrAMINE 50 MG/ML SDV IVPUSH ONE (10:25)
[2020-07-01] MEDS ORDERED: HYDROmorphone 0.5 MG/0.5 ML Syringe IVPUSH ONE (11:31)
[2020-07-01 12:39] VITALS: BP 123/70; PULSE 62
== END 2020-07-01 12:35 | disposition home or self-care (01) ==
LOC: JD.ED 09:46
DX: G43.909 Migraine, unspecified, not intractable, without status migrainosus (principal); I10 Essential (primary) hypertension; J45.909 Unspecified asthma, uncomplicated; K21.9 Gastro-esophageal reflux disease without esophagitis; M19.90 Unspecified osteoarthritis, unspecified site; E11.9 Type 2 diabetes mellitus without complications; Z88.1 Allergy status to other antibiotic agents; Z88.0 Allergy status to penicillin; Z88.8 Allergy status to other drugs, medicaments and biological substances; Z79.82 Long term (current) use of aspirin; Z79.84 Long term (current) use of oral hypoglycemic drugs; Z79.899 Other long term (current) drug therapy
CPT/HCPCS: 96374; 96375; 99283; J1170; J1200; J1885; J2765; J7120; 99284

== ENCOUNTER 2020-07-04 12:25 | Emergency (ER) | payer MEDICAID ==
[2020-07-04 12:36] VITALS: BP 155/75; PULSE 88
[2020-07-04] MEDS ORDERED: Sodium Chloride 0.9% 1,000 ML IV STA (12:44)
[2020-07-04] MEDS ORDERED: diphenhydrAMINE 50 MG/ML SDV IVPUSH ONE (12:44)
[2020-07-04] MEDS ORDERED: Ketorolac 30 MG/ML SDV IVPUSH ONE (12:44)
[2020-07-04] MEDS ORDERED: Ondansetron 4 MG/2 ML SDV IVPUSH ONE (12:44)
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
[2020-07-04] MEDS ORDERED: HYDROmorphone 0.5 MG/0.5 ML Syringe IVPUSH ONE (13:42)
== END 2020-07-04 14:45 | disposition home or self-care (01) ==
LOC: JD.ED 12:25
DX: G43.909 Migraine, unspecified, not intractable, without status migrainosus (principal); I10 Essential (primary) hypertension; J45.909 Unspecified asthma, uncomplicated; K21.9 Gastro-esophageal reflux disease without esophagitis; M19.90 Unspecified osteoarthritis, unspecified site; E11.9 Type 2 diabetes mellitus without complications; Z88.8 Allergy status to other drugs, medicaments and biological substances; Z88.1 Allergy status to other antibiotic agents; Z88.0 Allergy status to penicillin; Z79.82 Long term (current) use of aspirin; Z79.899 Other long term (current) drug therapy
CPT/HCPCS: 96374; 96375; 99283; J1170; J1200; J1885; J2405; J7030

== ENCOUNTER 2020-07-10 10:38 | Emergency (ER) | payer MEDICAID ==
[2020-07-10] MEDS ORDERED: Sodium Chloride 0.9% 10 ML Syringe FLUSH PRN (12:28)
[2020-07-10] MEDS ORDERED: diphenhydrAMINE 50 MG/ML SDV IVPUSH ONE (12:28)
[2020-07-10] MEDS ORDERED: Ondansetron 4 MG/2 ML SDV IVPUSH ONE (12:28)
[2020-07-10] MEDS ORDERED: Ketorolac 30 MG/ML SDV IVPUSH ONE (12:28)
[2020-07-10] MEDS ORDERED: Sodium Chloride 0.9% 1,000 ML IV STA (12:28)
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
[2020-07-10] MEDS ORDERED: HYDROmorphone 0.5 MG/0.5 ML Syringe IVPUSH ONE (13:56)
[2020-07-10 15:14] VITALS: BP 147/77; PULSE 68
== END 2020-07-10 15:14 | disposition home or self-care (01) ==
LOC: JD.ED 10:38
DX: G43.009 Migraine without aura, not intractable, without status migrainosus (principal); R11.2 Nausea with vomiting, unspecified; R19.7 Diarrhea, unspecified; E78.00 Pure hypercholesterolemia, unspecified; I10 Essential (primary) hypertension; J45.909 Unspecified asthma, uncomplicated; K21.9 Gastro-esophageal reflux disease without esophagitis; M19.90 Unspecified osteoarthritis, unspecified site; E11.9 Type 2 diabetes mellitus without complications; Z88.8 Allergy status to other drugs, medicaments and biological substances; Z79.82 Long term (current) use of aspirin; Z79.899 Other long term (current) drug therapy; Z79.84 Long term (current) use of oral hypoglycemic drugs; Z90.49 Acquired absence of other specified parts of digestive tract; Z90.710 Acquired absence of both cervix and uterus
CPT/HCPCS: 36415; 80053; 83735; 85025; 96374; 96375; 99283; J1170; J1200; J1885; J2405; J7030; 99284

== ENCOUNTER 2020-07-18 15:29 | Emergency (ER) | payer MEDICAID ==
[2020-07-18] MEDS ORDERED: Sodium Chloride 0.9% 1,000 ML IV STA (15:51)
[2020-07-18] MEDS ORDERED: Metoclopramide 10 MG/2 ML SDV IVPUSH ONE (15:51)
[2020-07-18] MEDS ORDERED: Sodium Chloride 0.9% 10 ML Syringe FLUSH PRN (15:51)
[2020-07-18] MEDS ORDERED: diphenhydrAMINE 50 MG/ML SDV IVPUSH ONE (15:54)
[2020-07-18] MEDS ORDERED: HYDROmorphone 1 MG/ML Syringe IVPUSH ONE (15:54)
[2020-07-18] MEDS ORDERED: Ketorolac 30 MG/ML SDV IVPUSH ONE (15:54)
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
[2020-07-18 16:53] VITALS: BP 141/74; PULSE 102
[2020-07-18] MEDS ORDERED: HYDROmorphone 0.5 MG/0.5 ML Syringe IVPUSH ONE (17:04)
== END 2020-07-18 17:35 | disposition home or self-care (01) ==
LOC: JD.ED 15:29
DX: G43.909 Migraine, unspecified, not intractable, without status migrainosus (principal); I10 Essential (primary) hypertension; J45.909 Unspecified asthma, uncomplicated; K21.9 Gastro-esophageal reflux disease without esophagitis; M19.90 Unspecified osteoarthritis, unspecified site; E11.9 Type 2 diabetes mellitus without complications; Z88.1 Allergy status to other antibiotic agents; Z88.0 Allergy status to penicillin; Z88.8 Allergy status to other drugs, medicaments and biological substances; Z79.82 Long term (current) use of aspirin; Z79.84 Long term (current) use of oral hypoglycemic drugs; Z79.899 Other long term (current) drug therapy
CPT/HCPCS: 36415; 80053; 83735; 85025; 96374; 96375; 96376; 99283; J1170; J1200; J1885; J2765; J7030

== ENCOUNTER 2020-08-18 11:56 | Emergency (ER) | payer MEDICAID ==
[2020-08-18] MEDS ORDERED: Sodium Chloride 0.9% 10 ML Syringe FLUSH PRN (12:16)
[2020-08-18] MEDS ORDERED: diphenhydrAMINE 50 MG/ML SDV IVPUSH ONE (12:16)
[2020-08-18] MEDS ORDERED: Sodium Chloride 0.9% 1,000 ML IV ONE (12:16)
[2020-08-18] MEDS ORDERED: Metoclopramide 10 MG/2 ML SDV IVPUSH ONE (12:16)
[2020-08-18] MEDS ORDERED: Ketorolac 30 MG/ML SDV IVPUSH ONE (12:16)
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
[2020-08-18] MEDS ORDERED: HYDROmorphone 0.5 MG/0.5 ML Syringe IVPUSH ONE (13:33)
[2020-08-18 14:02] VITALS: BP 140/70; PULSE 81
== END 2020-08-18 14:13 | disposition home or self-care (01) ==
LOC: JD.ED 11:56
DX: G43.009 Migraine without aura, not intractable, without status migrainosus (principal); E11.9 Type 2 diabetes mellitus without complications; E78.00 Pure hypercholesterolemia, unspecified; I10 Essential (primary) hypertension; Z79.84 Long term (current) use of oral hypoglycemic drugs; Z88.0 Allergy status to penicillin; Z88.8 Allergy status to other drugs, medicaments and biological substances; Z88.5 Allergy status to narcotic agent; Z88.1 Allergy status to other antibiotic agents; Z79.82 Long term (current) use of aspirin; Z79.899 Other long term (current) drug therapy
CPT/HCPCS: 96374; 96375; 99283; J1170; J1200; J1885; J2765; J7030

== ENCOUNTER 2020-08-26 16:28 | Emergency (ER) | payer MEDICAID ==
[2020-08-26 16:50] VITALS: BP 156/85; PULSE 70
[2020-08-26] MEDS ORDERED: Ketorolac 30 MG/ML SDV IM ONE (17:15)
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
[2020-08-26] MEDS ORDERED: HYDROmorphone 0.5 MG/0.5 ML Syringe IM ONE (18:55)
[2020-08-26] MEDS ORDERED: Sulfamethoxazole/Trimethoprim 800-160 MG Tab PO ONE (20:02)
--- NOTE | 2020-08-27 08:39 | CT ---
CT left foot Technique: Multiple axial sections through the left foot were obtained. Reconstructed coronal and sagittal images were obtained. Findings: Lucent line is noted within the proximal aspect of the proximal phalanx of the first toe. Additional lucent line is seen within the distal first metatarsal. These are compatible with previous screw placements which have been removed. Multiple small bony densities are seen off the distal first metatarsal which are felt to represent old injury or old surgery. Small bone island is noted within the second cuneiform bone. Diffuse soft tissue swelling is seen most prominent around the first MTP joint. No additional bony abnormality is appreciated. Impression: 1. Diffuse soft tissue swelling is noted mostly around the first MTP joint. Please correlate if patient has infectious symptoms to represent cellulitis superimposed with postoperative change. 2. Lucencies compatible with previous screw placements which have been removed around the MTP joint. 3. Multiple small bony densities are also noted off the distal first metatarsal most likely due to previous injury or previous surgery. 4. No acute osseous finding is appreciated. Diagnostic code #3 MTDD
== END 2020-08-26 20:23 | disposition home or self-care (01) ==
LOC: JD.ED 16:28
DX: L03.032 Cellulitis of left toe (principal); E78.00 Pure hypercholesterolemia, unspecified; I10 Essential (primary) hypertension; E11.9 Type 2 diabetes mellitus without complications; R60.0 Localized edema; Z88.0 Allergy status to penicillin; Z79.82 Long term (current) use of aspirin; Z88.1 Allergy status to other antibiotic agents; Z79.899 Other long term (current) drug therapy; Z88.8 Allergy status to other drugs, medicaments and biological substances; Z79.84 Long term (current) use of oral hypoglycemic drugs
CPT/HCPCS: 36415; 73700; 80053; 85025; 86140; 96372; 99284; A9270; J1170; J1885; 99283

== ENCOUNTER 2020-09-01 09:22 | Emergency (ER) | payer MEDICAID ==
[2020-09-01] MEDS ORDERED: Metoclopramide 10 MG/2 ML SDV IVPUSH ONE (09:40)
[2020-09-01] MEDS ORDERED: Sodium Chloride 0.9% 10 ML Syringe FLUSH PRN (09:40)
[2020-09-01] MEDS ORDERED: Ketorolac 30 MG/ML SDV IVPUSH ONE (09:41)
[2020-09-01] MEDS ORDERED: HYDROmorphone 1 MG/ML Syringe IVPUSH ONE (09:41)
[2020-09-01] MEDS ORDERED: diphenhydrAMINE 50 MG/ML SDV IVPUSH ONE (09:41)
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
[2020-09-01 10:50] VITALS: BP 112/69; PULSE 79
== END 2020-09-01 10:49 | disposition home or self-care (01) ==
LOC: JD.ED 09:22
DX: R51.9 Headache, unspecified (principal); E78.00 Pure hypercholesterolemia, unspecified; I10 Essential (primary) hypertension; K21.9 Gastro-esophageal reflux disease without esophagitis; E11.9 Type 2 diabetes mellitus without complications; Z88.0 Allergy status to penicillin; Z88.8 Allergy status to other drugs, medicaments and biological substances; Z79.82 Long term (current) use of aspirin; Z79.899 Other long term (current) drug therapy; Z88.1 Allergy status to other antibiotic agents
CPT/HCPCS: 96374; 96375; 99283; J1170; J1200; J1885; J2765

== ENCOUNTER 2020-09-02 16:10 | Emergency (ER) | payer MEDICAID ==
[2020-09-02] MEDS ORDERED: Sodium Chloride 0.9% 1,000 ML IV STA (16:38)
[2020-09-02] MEDS ORDERED: diphenhydrAMINE 50 MG/ML SDV IVPUSH ONE (16:38)
[2020-09-02] MEDS ORDERED: Ketorolac 30 MG/ML SDV IVPUSH ONE (16:38)
[2020-09-02] MEDS ORDERED: Metoclopramide 10 MG/2 ML SDV IVPUSH ONE (16:38)
[2020-09-02] MEDS ORDERED: HYDROmorphone 0.5 MG/0.5 ML Syringe IVPUSH ONE (16:38)
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
[2020-09-02 18:33] VITALS: BP 113/60; PULSE 70
== END 2020-09-02 18:36 | disposition home or self-care (01) ==
LOC: JD.ED 16:10
DX: G43.909 Migraine, unspecified, not intractable, without status migrainosus (principal); E78.00 Pure hypercholesterolemia, unspecified; I10 Essential (primary) hypertension; E11.9 Type 2 diabetes mellitus without complications; K21.9 Gastro-esophageal reflux disease without esophagitis; Z88.1 Allergy status to other antibiotic agents; Z88.5 Allergy status to narcotic agent; Z88.8 Allergy status to other drugs, medicaments and biological substances; Z88.0 Allergy status to penicillin; Z79.82 Long term (current) use of aspirin; Z79.899 Other long term (current) drug therapy
CPT/HCPCS: 96374; 96375; 99283; J1170; J1200; J1885; J2765; J7030

== ENCOUNTER 2020-09-14 16:30 | Emergency (ER) | payer MEDICAID ==
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
[2020-09-14 16:45] VITALS: BP 130/93; PULSE 118
[2020-09-14] MEDS ORDERED: diphenhydrAMINE 50 MG/ML SDV IVPUSH ONE (16:51)
[2020-09-14] MEDS ORDERED: HYDROmorphone 1 MG/ML Syringe IVPUSH ONE (16:52)
[2020-09-14] MEDS ORDERED: Metoclopramide 10 MG/2 ML SDV IVPUSH ONE (16:52)
[2020-09-14] MEDS ORDERED: Ketorolac 30 MG/ML SDV IVPUSH SCH (17:00)
[2020-09-14] MEDS ORDERED: Dextrose 5%-0.9% NaCl 1,000 ML IV SCH (17:00)
== END 2020-09-14 18:35 | disposition home or self-care (01) ==
LOC: JD.ED 16:30
DX: G43.009 Migraine without aura, not intractable, without status migrainosus (principal); E86.9 Volume depletion, unspecified; E78.00 Pure hypercholesterolemia, unspecified; I10 Essential (primary) hypertension; K21.9 Gastro-esophageal reflux disease without esophagitis; E11.9 Type 2 diabetes mellitus without complications; Z79.82 Long term (current) use of aspirin; Z79.899 Other long term (current) drug therapy; Z88.0 Allergy status to penicillin; Z88.1 Allergy status to other antibiotic agents; Z88.8 Allergy status to other drugs, medicaments and biological substances; Z88.5 Allergy status to narcotic agent; Z79.84 Long term (current) use of oral hypoglycemic drugs
CPT/HCPCS: 96374; 96375; 99283; J1170; J1200; J1885; J2765; J7042; 99284

== ENCOUNTER 2020-09-15 15:00 | Emergency (ER) | payer MEDICAID ==
[2020-09-15 15:22] VITALS: BP 171/94; PULSE 86
[2020-09-15] MEDS ORDERED: Ketorolac 30 MG/ML SDV IVPUSH ONE (15:27)
[2020-09-15] MEDS ORDERED: Sodium Chloride 0.9% 1,000 ML IV STA (15:27)
[2020-09-15] MEDS ORDERED: Metoclopramide 10 MG/2 ML SDV IVPUSH ONE (15:27)
[2020-09-15] MEDS ORDERED: HYDROmorphone 1 MG/ML Syringe IV ONE (15:27)
[2020-09-15] MEDS ORDERED: diphenhydrAMINE 50 MG/ML SDV IVPUSH ONE (15:27)
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
== END 2020-09-15 16:30 | disposition home or self-care (01) ==
LOC: JD.ED 15:00
DX: G43.009 Migraine without aura, not intractable, without status migrainosus (principal); I10 Essential (primary) hypertension; K21.9 Gastro-esophageal reflux disease without esophagitis; E11.9 Type 2 diabetes mellitus without complications; Z87.891 Personal history of nicotine dependence; Z79.82 Long term (current) use of aspirin; Z79.899 Other long term (current) drug therapy; Z88.0 Allergy status to penicillin; Z88.1 Allergy status to other antibiotic agents; Z88.5 Allergy status to narcotic agent; Z88.8 Allergy status to other drugs, medicaments and biological substances
CPT/HCPCS: 96374; 96375; 99283; J1170; J1200; J1885; J2765; J7030

== ENCOUNTER 2020-09-16 17:47 | Emergency (ER) | payer MEDICAID ==
[2020-09-16 18:01] VITALS: BP 188/95; PULSE 80
[2020-09-16] MEDS ORDERED: Sodium Chloride 0.9% 10 ML Syringe FLUSH PRN (18:23)
[2020-09-16] MEDS ORDERED: Ketorolac 30 MG/ML SDV IVPUSH ONE (18:24)
[2020-09-16] MEDS ORDERED: Metoclopramide 10 MG/2 ML SDV IVPUSH ONE (18:24)
[2020-09-16] MEDS ORDERED: HYDROmorphone 0.5 MG/0.5 ML Syringe IVPUSH ONE (18:24)
[2020-09-16] MEDS ORDERED: Sodium Chloride 0.9% 1,000 ML IV STA (18:24)
[2020-09-16] MEDS ORDERED: diphenhydrAMINE 50 MG/ML SDV IVPUSH ONE (18:25)
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
--- NOTE | 2020-09-16 19:09 | CT ---
Head CT Technique: Multiple axial sections were obtained through the brain. Intravenous contrast was not utilized. Reconstructed coronal and sagittal images were also obtained. Comparison: Prior head CT study of 05/20/18. Findings: Ventricles along with basal cisterns and sulci over the convexities are within normal limits for the patient's age. No abnormal parenchymal densities are seen. No evidence of intracranial hemorrhage. No midline shift or mass-effect is seen. Bone window settings were reviewed. Minimal mucosal thickening is seen within the inferior right maxillary sinus which appears chronic. Visualized paranasal sinuses show nothing acute. No acute calvarial finding is appreciated. Impression: 1. Mild chronic appearing mucosal thickening within the inferior right maxillary sinus. 2. Nothing acute is appreciated on noncontrast head CT exam. Diagnostic code #2
== END 2020-09-16 20:12 | disposition home or self-care (01) ==
LOC: JD.ED 17:47
DX: G43.909 Migraine, unspecified, not intractable, without status migrainosus (principal); E78.00 Pure hypercholesterolemia, unspecified; I10 Essential (primary) hypertension; J45.909 Unspecified asthma, uncomplicated; K21.9 Gastro-esophageal reflux disease without esophagitis; E11.9 Type 2 diabetes mellitus without complications; E66.9 Obesity, unspecified; M19.90 Unspecified osteoarthritis, unspecified site; Z88.1 Allergy status to other antibiotic agents; Z88.0 Allergy status to penicillin; Z88.8 Allergy status to other drugs, medicaments and biological substances; Z79.82 Long term (current) use of aspirin; Z79.84 Long term (current) use of oral hypoglycemic drugs; Z79.899 Other long term (current) drug therapy; Z68.30 Body mass index [BMI] 30.0-30.9, adult
CPT/HCPCS: 36415; 70450; 70450-26; 80053; 85025; 96374; 96375; 99284; 99284-25; J1170; J1200; J1885; J2765; J7030

== ENCOUNTER 2020-09-25 11:03 | Emergency (ER) | payer MEDICAID ==
[2020-09-25 11:25] VITALS: BP 146/82; PULSE 78
[2020-09-25] MEDS ORDERED: Metoclopramide 10 MG/2 ML SDV IVPUSH ONE (11:29)
[2020-09-25] MEDS ORDERED: diphenhydrAMINE 50 MG/ML SDV IVPUSH ONE (11:29)
[2020-09-25] MEDS ORDERED: Sodium Chloride 0.9% 1,000 ML IV ONE (11:29)
[2020-09-25] MEDS ORDERED: Ketorolac 30 MG/ML SDV IVPUSH ONE (11:29)
[2020-09-25] MEDS ORDERED: Sodium Chloride 0.9% 10 ML Syringe FLUSH PRN (11:29)
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
[2020-09-25] MEDS ORDERED: HYDROmorphone 0.5 MG/0.5 ML Syringe IVPUSH ONE (12:25)
== END 2020-09-25 13:24 | disposition home or self-care (01) ==
LOC: JD.ED 11:03
DX: R51.9 Headache, unspecified (principal); E78.00 Pure hypercholesterolemia, unspecified; I10 Essential (primary) hypertension; K21.9 Gastro-esophageal reflux disease without esophagitis; E11.9 Type 2 diabetes mellitus without complications; E66.9 Obesity, unspecified; Z79.82 Long term (current) use of aspirin; Z79.84 Long term (current) use of oral hypoglycemic drugs; Z88.0 Allergy status to penicillin; Z88.1 Allergy status to other antibiotic agents; Z88.8 Allergy status to other drugs, medicaments and biological substances
CPT/HCPCS: 96374; 96375; 99283; J1170; J1200; J1885; J2765; J7030

== ENCOUNTER 2020-10-02 10:24 | Emergency (ER) | payer MEDICAID ==
[2020-10-02] MEDS ORDERED: Sodium Chloride 0.9% 10 ML Syringe FLUSH PRN (11:04)
[2020-10-02] MEDS ORDERED: diphenhydrAMINE 50 MG/ML SDV IVPUSH ONE (11:04)
[2020-10-02] MEDS ORDERED: Metoclopramide 10 MG/2 ML SDV IVPUSH ONE (11:04)
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
[2020-10-02] MEDS ORDERED: Sodium Chloride 0.9% 1,000 ML IV SCH (11:15)
[2020-10-02] MEDS ORDERED: Ketorolac 30 MG/ML SDV IVPUSH SCH (11:15)
[2020-10-02] MEDS ORDERED: Acetaminophen 325 MG Tab PO ONE (11:55)
[2020-10-02] MEDS ORDERED: Haloperidol Lactate 5 MG/ML SDV IVPUSH ONE (11:55)
[2020-10-02 13:41] VITALS: BP 119/68; PULSE 68
== END 2020-10-02 13:33 | disposition home or self-care (01) ==
LOC: JD.ED 10:24
DX: G43.909 Migraine, unspecified, not intractable, without status migrainosus (principal); I10 Essential (primary) hypertension; J45.909 Unspecified asthma, uncomplicated; E11.9 Type 2 diabetes mellitus without complications; E66.9 Obesity, unspecified; M19.90 Unspecified osteoarthritis, unspecified site; K21.9 Gastro-esophageal reflux disease without esophagitis; Z87.891 Personal history of nicotine dependence; Z88.1 Allergy status to other antibiotic agents; Z88.0 Allergy status to penicillin; Z88.8 Allergy status to other drugs, medicaments and biological substances; Z79.899 Other long term (current) drug therapy; Z79.82 Long term (current) use of aspirin; Z79.84 Long term (current) use of oral hypoglycemic drugs
CPT/HCPCS: 96374; 96375; 99283; A9270; J1200; J1630; J1885; J2765; J7030

== ENCOUNTER 2020-10-12 08:19 | Emergency (ER) | payer MEDICAID ==
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
[2020-10-12 10:50] LABS: ACETAMINOPHEN 0 ug/mL (10-30)
[2020-10-12] MEDS ORDERED: LORazepam 0.5 MG Tab PO ONE (11:06)
[2020-10-12 13:19] VITALS: BP 150/88; PULSE 80
== END 2020-10-12 13:31 ==
LOC: JD.ED 08:19
DX: F32.9 Major depressive disorder, single episode, unspecified (principal); E11.9 Type 2 diabetes mellitus without complications; E66.9 Obesity, unspecified; E78.00 Pure hypercholesterolemia, unspecified; I10 Essential (primary) hypertension; Z68.30 Body mass index [BMI] 30.0-30.9, adult; Z79.82 Long term (current) use of aspirin; Z79.84 Long term (current) use of oral hypoglycemic drugs; Z79.899 Other long term (current) drug therapy; Z88.0 Allergy status to penicillin; Z88.1 Allergy status to other antibiotic agents; Z88.5 Allergy status to narcotic agent; Z88.8 Allergy status to other drugs, medicaments and biological substances; Z20.822 Contact with and (suspected) exposure to COVID-19
CPT/HCPCS: 36415; 80053; 80143; 80179; 80306; 80307; 81003; 84443; 85025; 87635; 99284; A9270; U0002

== ENCOUNTER 2020-10-27 10:28 | Emergency (ER) | payer MEDICAID ==
[2020-10-27 11:06] VITALS: BP 156/85; PULSE 78
[2020-10-27] MEDS ORDERED: Ketorolac 30 MG/ML SDV IVPUSH ONE (11:15)
[2020-10-27] MEDS ORDERED: Metoclopramide 10 MG/2 ML SDV IVPUSH ONE (11:15)
[2020-10-27] MEDS ORDERED: diphenhydrAMINE 50 MG/ML SDV IVPUSH ONE (11:15)
[2020-10-27] MEDS ORDERED: Sodium Chloride 0.9% 10 ML Syringe FLUSH PRN (11:15)
[2020-10-27] MEDS ORDERED: Sodium Chloride 0.9% 1,000 ML IV ONE (11:15)
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
[2020-10-27] MEDS ORDERED: HYDROmorphone 0.5 MG/0.5 ML Syringe IVPUSH ONE (12:02)
== END 2020-10-27 11:35 | disposition home or self-care (01) ==
LOC: JD.ED 10:28
DX: G43.009 Migraine without aura, not intractable, without status migrainosus (principal); E78.00 Pure hypercholesterolemia, unspecified; I10 Essential (primary) hypertension; J45.909 Unspecified asthma, uncomplicated; K21.9 Gastro-esophageal reflux disease without esophagitis; E11.9 Type 2 diabetes mellitus without complications; E66.9 Obesity, unspecified; M19.90 Unspecified osteoarthritis, unspecified site; Z68.29 Body mass index [BMI] 29.0-29.9, adult; Z88.1 Allergy status to other antibiotic agents; Z88.8 Allergy status to other drugs, medicaments and biological substances; Z79.82 Long term (current) use of aspirin; Z79.84 Long term (current) use of oral hypoglycemic drugs; Z79.899 Other long term (current) drug therapy; Z86.711 Personal history of pulmonary embolism
CPT/HCPCS: 96374; 96375; 99283; J1170; J1200; J1885; J2765; J7030

== ENCOUNTER 2020-11-03 17:23 | Emergency (ER) | payer MEDICAID ==
[2020-11-03] MEDS ORDERED: Ondansetron 4 MG/2 ML SDV IVPUSH ONE (18:02)
[2020-11-03] MEDS ORDERED: Ketorolac 30 MG/ML SDV IVPUSH ONE (18:02)
[2020-11-03] MEDS ORDERED: Sodium Chloride 0.9% 1,000 ML IV STA (18:02)
[2020-11-03] MEDS ORDERED: diphenhydrAMINE 50 MG/ML SDV IVPUSH ONE (18:03)
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
[2020-11-03] MEDS ORDERED: HYDROmorphone 0.5 MG/0.5 ML Syringe IVPUSH ONE (19:12)
[2020-11-03 20:01] VITALS: BP 140/84; PULSE 71
== END 2020-11-03 20:00 | disposition home or self-care (01) ==
LOC: JD.ED 17:23
DX: G43.909 Migraine, unspecified, not intractable, without status migrainosus (principal); I10 Essential (primary) hypertension; J45.909 Unspecified asthma, uncomplicated; K21.9 Gastro-esophageal reflux disease without esophagitis; M19.90 Unspecified osteoarthritis, unspecified site; E11.9 Type 2 diabetes mellitus without complications; E66.9 Obesity, unspecified; Z68.29 Body mass index [BMI] 29.0-29.9, adult; Z88.1 Allergy status to other antibiotic agents; Z88.0 Allergy status to penicillin; Z88.8 Allergy status to other drugs, medicaments and biological substances; Z79.82 Long term (current) use of aspirin; Z79.84 Long term (current) use of oral hypoglycemic drugs; Z79.899 Other long term (current) drug therapy
CPT/HCPCS: 96374; 96375; 99283; J1170; J1200; J1885; J2405; J7030

== ENCOUNTER 2020-11-04 13:25 | Emergency (ER) | payer MEDICAID ==
[2020-11-04] MEDS ORDERED: HYDROmorphone 1 MG/ML Syringe IM ONE (14:52)
[2020-11-04] MEDS ORDERED: diphenhydrAMINE 50 MG Cap PO ONE (14:52)
[2020-11-04] MEDS ORDERED: Ketorolac 60 MG/2 ML SDV IM ONE (14:52)
[2020-11-04] MEDS ORDERED: Ondansetron 4 MG Tab.DIS PO ONE (14:52)
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
[2020-11-04 16:01] VITALS: BP 142/77; PULSE 65
== END 2020-11-04 16:12 | disposition home or self-care (01) ==
LOC: JD.ED 13:25
DX: G43.909 Migraine, unspecified, not intractable, without status migrainosus (principal); I10 Essential (primary) hypertension; J45.909 Unspecified asthma, uncomplicated; K21.9 Gastro-esophageal reflux disease without esophagitis; M19.90 Unspecified osteoarthritis, unspecified site; E11.9 Type 2 diabetes mellitus without complications; E66.9 Obesity, unspecified; Z68.28 Body mass index [BMI] 28.0-28.9, adult; Z88.1 Allergy status to other antibiotic agents; Z88.0 Allergy status to penicillin; Z88.8 Allergy status to other drugs, medicaments and biological substances; Z79.82 Long term (current) use of aspirin; Z79.84 Long term (current) use of oral hypoglycemic drugs; Z79.899 Other long term (current) drug therapy
CPT/HCPCS: 96372; 99283; A9270; J1170; J1885

== ENCOUNTER 2020-11-10 17:41 | Emergency (ER) | payer MEDICAID ==
[2020-11-10 17:48] VITALS: BP 131/80; PULSE 93
[2020-11-10] MEDS ORDERED: Acetaminophen/oxyCODONE 325-5 MG Tab PO ONE (17:55)
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
== END 2020-11-10 18:44 | disposition home or self-care (01) ==
LOC: JD.ED 17:41
DX: G89.18 Other acute postprocedural pain (principal); M79.672 Pain in left foot; E78.00 Pure hypercholesterolemia, unspecified; I10 Essential (primary) hypertension; E11.9 Type 2 diabetes mellitus without complications; E66.9 Obesity, unspecified; K21.9 Gastro-esophageal reflux disease without esophagitis; Z79.82 Long term (current) use of aspirin; Z79.899 Other long term (current) drug therapy; Z88.0 Allergy status to penicillin; Z88.1 Allergy status to other antibiotic agents; Z88.8 Allergy status to other drugs, medicaments and biological substances; W18.39XA Other fall on same level, initial encounter; Y92.009 Unspecified place in unspecified non-institutional (private) residence as the place of occurrence of the external cause
CPT/HCPCS: 99283; A9270

== ENCOUNTER 2020-11-11 14:35 | Emergency (ER) | payer MEDICAID ==
[2020-11-11] MEDS ORDERED: HYDROmorphone 1 MG/ML Syringe IM ONE (15:32)
[2020-11-11] MEDS ORDERED: Ondansetron 4 MG Tab.DIS PO ONE (15:32)
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
--- NOTE | 2020-11-11 17:16 | CR ---
Left foot: 4 views of the left foot were obtained. Comparison: Prior foot study of 05/16/[address] foot study of 08/26/20. Previous fusion surgery is seen within the first MTP joint. Orthopedic hardware is in place. Fiberglass splint is in place. Soft tissue swelling is noted. Prior bone resection is noted within the posterior calcaneus. Small spur noted at the attachment of the Achilles tendon to the calcaneus. No acute osseous abnormality is appreciated. Impression: 1. Prior surgery as described above. 2. Fiberglass splint is in place. 3. Soft tissue swelling. 4. No acute osseous abnormality is appreciated. Diagnostic code #2
[2020-11-11] MEDS ORDERED: Acetaminophen/oxyCODONE 325-5 MG Tab PO ONE (17:19)
[2020-11-11 18:42] VITALS: BP 130/74; PULSE 92
== END 2020-11-11 17:45 | disposition home or self-care (01) ==
LOC: JD.ED 14:35
DX: G89.18 Other acute postprocedural pain (principal); M79.672 Pain in left foot; I10 Essential (primary) hypertension; J45.909 Unspecified asthma, uncomplicated; K21.9 Gastro-esophageal reflux disease without esophagitis; M19.90 Unspecified osteoarthritis, unspecified site; E11.9 Type 2 diabetes mellitus without complications; E66.9 Obesity, unspecified; Z68.28 Body mass index [BMI] 28.0-28.9, adult; Z88.1 Allergy status to other antibiotic agents; Z88.0 Allergy status to penicillin; Z88.8 Allergy status to other drugs, medicaments and biological substances; Z79.82 Long term (current) use of aspirin; Z79.84 Long term (current) use of oral hypoglycemic drugs; Z79.899 Other long term (current) drug therapy
CPT/HCPCS: 73630; 96372; 99283; A9270; J1170

== ENCOUNTER 2020-12-11 12:20 | Emergency (ER) | payer MEDICAID, OTHER ==
[2020-12-11 12:37] VITALS: BP 157/83; PULSE 98
[2020-12-11] MEDS ORDERED: Sodium Chloride 0.9% 10 ML Syringe FLUSH PRN (13:12)
[2020-12-11] MEDS ORDERED: Sodium Chloride 0.9% 1,000 ML IV ONE (13:12)
[2020-12-11] MEDS ORDERED: Ketorolac 30 MG/ML SDV IVPUSH ONE (13:13)
[2020-12-11] MEDS ORDERED: Metoclopramide 10 MG/2 ML SDV IVPUSH ONE (13:13)
[2020-12-11] MEDS ORDERED: diphenhydrAMINE 50 MG/ML SDV IVPUSH ONE (13:13)
[2020-12-11] MEDS ORDERED: HYDROmorphone 1 MG/ML Syringe IVPUSH ONE (13:14)
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
== END 2020-12-11 14:40 | disposition home or self-care (01) ==
LOC: JD.ED 12:20
DX: G43.009 Migraine without aura, not intractable, without status migrainosus (principal); K21.9 Gastro-esophageal reflux disease without esophagitis; E78.00 Pure hypercholesterolemia, unspecified; I10 Essential (primary) hypertension; E11.9 Type 2 diabetes mellitus without complications; E66.9 Obesity, unspecified; Z68.27 Body mass index [BMI] 27.0-27.9, adult; Z88.0 Allergy status to penicillin; Z88.1 Allergy status to other antibiotic agents; Z88.8 Allergy status to other drugs, medicaments and biological substances; Z79.82 Long term (current) use of aspirin; Z79.84 Long term (current) use of oral hypoglycemic drugs; Z79.899 Other long term (current) drug therapy
CPT/HCPCS: 96374; 96375; 99283; J1170; J1200; J1885; J2765; J7030

== ENCOUNTER 2020-12-20 12:53 | Emergency (ER) | payer MEDICAID, OTHER ==
[2020-12-20 14:09] VITALS: BP 140/73; PULSE 96
[2020-12-20] MEDS ORDERED: Sodium Chloride 0.9% 1,000 ML IV STA (14:34)
[2020-12-20] MEDS ORDERED: Metoclopramide 10 MG/2 ML SDV IVPUSH ONE (14:35)
[2020-12-20] MEDS ORDERED: diphenhydrAMINE 50 MG/ML SDV IVPUSH ONE (14:35)
[2020-12-20] MEDS ORDERED: HYDROmorphone 1 MG/ML Syringe IVPUSH ONE (14:35)
[2020-12-20] MEDS ORDERED: Ketorolac 30 MG/ML SDV IVPUSH ONE (14:35)
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
[2020-12-20] MEDS ORDERED: HYDROmorphone 0.5 MG/0.5 ML Syringe IVPUSH ONE (15:52)
== END 2020-12-20 16:20 | disposition home or self-care (01) ==
LOC: JD.ED 12:53
DX: G43.909 Migraine, unspecified, not intractable, without status migrainosus (principal); E78.00 Pure hypercholesterolemia, unspecified; I10 Essential (primary) hypertension; K21.9 Gastro-esophageal reflux disease without esophagitis; E11.9 Type 2 diabetes mellitus without complications; E66.9 Obesity, unspecified; Z68.30 Body mass index [BMI] 30.0-30.9, adult; Z88.0 Allergy status to penicillin; Z88.1 Allergy status to other antibiotic agents; Z88.8 Allergy status to other drugs, medicaments and biological substances; Z79.82 Long term (current) use of aspirin; Z79.899 Other long term (current) drug therapy
CPT/HCPCS: 96374; 96375; 96376; 99283; J1170; J1200; J1885; J2765; J7030

== ENCOUNTER 2020-12-28 12:18 | Emergency (ER) | payer MEDICAID ==
[2020-12-28 12:41] VITALS: BP 161/88; PULSE 86
[2020-12-28] MEDS ORDERED: Metoclopramide 10 MG/2 ML SDV IM ONE (12:51)
[2020-12-28] MEDS ORDERED: HYDROmorphone 1 MG/ML Syringe IM ONE (12:51)
[2020-12-28] MEDS ORDERED: diphenhydrAMINE 50 MG/ML SDV IM ONE (12:51)
[2020-12-28] MEDS ORDERED: Ketorolac 30 MG/ML SDV IM ONE (12:51)
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
== END 2020-12-28 13:58 | disposition home or self-care (01) ==
LOC: JD.ED 12:18
DX: R51.9 Headache, unspecified (principal); E78.00 Pure hypercholesterolemia, unspecified; I10 Essential (primary) hypertension; K21.9 Gastro-esophageal reflux disease without esophagitis; E11.9 Type 2 diabetes mellitus without complications; E66.9 Obesity, unspecified; Z68.29 Body mass index [BMI] 29.0-29.9, adult; Z88.0 Allergy status to penicillin; Z88.1 Allergy status to other antibiotic agents; Z88.8 Allergy status to other drugs, medicaments and biological substances; Z79.82 Long term (current) use of aspirin; Z79.899 Other long term (current) drug therapy
CPT/HCPCS: 96372; 99283; J1170; J1200; J1885; J2765

== ENCOUNTER 2021-01-06 10:20 | Emergency (ER) | payer MEDICAID, OTHER ==
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
[2021-01-06] MEDS ORDERED: diphenhydrAMINE 50 MG/ML SDV IM ONE (12:54)
[2021-01-06] MEDS ORDERED: Metoclopramide 10 MG/2 ML SDV IM ONE (12:54)
[2021-01-06] MEDS ORDERED: Ketorolac 30 MG/ML SDV IM ONE (12:54)
[2021-01-06] MEDS ORDERED: HYDROmorphone 1 MG/ML Syringe IM ONE (12:54)
[2021-01-06 14:10] VITALS: BP 161/88; PULSE 58
== END 2021-01-06 14:05 | disposition home or self-care (01) ==
LOC: JD.ED 10:20
DX: G43.909 Migraine, unspecified, not intractable, without status migrainosus (principal); E78.00 Pure hypercholesterolemia, unspecified; I10 Essential (primary) hypertension; K21.9 Gastro-esophageal reflux disease without esophagitis; E11.9 Type 2 diabetes mellitus without complications; Z68.30 Body mass index [BMI] 30.0-30.9, adult; Z88.0 Allergy status to penicillin; Z88.1 Allergy status to other antibiotic agents; Z88.5 Allergy status to narcotic agent; Z88.8 Allergy status to other drugs, medicaments and biological substances; Z79.82 Long term (current) use of aspirin; Z79.899 Other long term (current) drug therapy
CPT/HCPCS: 96372; 99283; J1170; J1200; J1885; J2765

== ENCOUNTER 2021-01-25 06:18 | Emergency (ER) | payer MEDICAID, OTHER ==
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
[2021-01-25] MEDS ORDERED: Metoclopramide 10 MG/2 ML SDV IVPUSH ONE (06:52)
[2021-01-25] MEDS ORDERED: Lactated Ringers 1,000 ML IV ONE (06:53)
[2021-01-25] MEDS ORDERED: diphenhydrAMINE 50 MG/ML SDV IVPUSH ONE (06:59)
[2021-01-25] MEDS ORDERED: Acetaminophen 325 MG Tab PO ONE (07:47)
[2021-01-25] MEDS ORDERED: Ketorolac 15 MG/ML SDV IVPUSH ONE (07:47)
[2021-01-25] MEDS ORDERED: Morphine 4 MG/ML VIAL IVPUSH ONE (08:43)
[2021-01-25] MEDS ORDERED: Morphine 4 MG/ML Syringe IVPUSH ONE (09:00)
[2021-01-25 09:47] VITALS: BP 133/66; PULSE 76
== END 2021-01-25 09:40 | disposition home or self-care (01) ==
LOC: JD.ED 06:18
DX: G43.009 Migraine without aura, not intractable, without status migrainosus (principal); I10 Essential (primary) hypertension; J45.909 Unspecified asthma, uncomplicated; K21.9 Gastro-esophageal reflux disease without esophagitis; M19.90 Unspecified osteoarthritis, unspecified site; E11.9 Type 2 diabetes mellitus without complications; E66.9 Obesity, unspecified; Z90.710 Acquired absence of both cervix and uterus; Z86.711 Personal history of pulmonary embolism; Z88.1 Allergy status to other antibiotic agents; Z88.0 Allergy status to penicillin; Z88.8 Allergy status to other drugs, medicaments and biological substances; Z79.82 Long term (current) use of aspirin; Z79.84 Long term (current) use of oral hypoglycemic drugs; Z79.899 Other long term (current) drug therapy
CPT/HCPCS: 96374; 96375; 99283; A9270; J1200; J1885; J2270; J2765; J7120

== ENCOUNTER 2021-01-27 09:55 | Emergency (ER) | payer MEDICAID, OTHER ==
[2021-01-27] MEDS ORDERED: Metoclopramide 10 MG/2 ML SDV IVPUSH ONE (10:19)
[2021-01-27] MEDS ORDERED: Sodium Chloride 0.9% 10 ML Syringe FLUSH PRN (10:19)
[2021-01-27] MEDS ORDERED: diphenhydrAMINE 50 MG/ML SDV IVPUSH ONE (10:20)
[2021-01-27] MEDS ORDERED: HYDROmorphone 0.5 MG/0.5 ML Syringe IVPUSH ONE (10:20)
[2021-01-27] MEDS ORDERED: Ketorolac 30 MG/ML SDV IVPUSH ONE (10:20)
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
[2021-01-27 12:22] VITALS: BP 147/86; PULSE 83
== END 2021-01-27 11:55 | disposition home or self-care (01) ==
LOC: JD.ED 09:55
DX: G43.009 Migraine without aura, not intractable, without status migrainosus (principal); E78.00 Pure hypercholesterolemia, unspecified; I10 Essential (primary) hypertension; E11.9 Type 2 diabetes mellitus without complications; E66.9 Obesity, unspecified; K21.9 Gastro-esophageal reflux disease without esophagitis; Z87.891 Personal history of nicotine dependence; Z68.30 Body mass index [BMI] 30.0-30.9, adult; Z88.0 Allergy status to penicillin; Z88.1 Allergy status to other antibiotic agents; Z88.8 Allergy status to other drugs, medicaments and biological substances; Z79.82 Long term (current) use of aspirin; Z79.899 Other long term (current) drug therapy
CPT/HCPCS: 96374; 96375; 99283; J1170; J1200; J1885; J2765

== ENCOUNTER 2021-02-02 11:08 | Emergency (ER) | payer MEDICAID, SELFPAY ==
[2021-02-02 11:17] VITALS: BP 174/83; PULSE 80
[2021-02-02] MEDS ORDERED: Sodium Chloride 0.9% 1,000 ML IV STA (11:48)
[2021-02-02] MEDS ORDERED: Ondansetron 4 MG/2 ML SDV IVPUSH ONE (11:48)
[2021-02-02] MEDS ORDERED: Ketorolac 30 MG/ML SDV IVPUSH ONE (11:48)
[2021-02-02] MEDS ORDERED: HYDROmorphone 1 MG/ML Syringe IVPUSH ONE (11:48)
[2021-02-02] MEDS ORDERED: diphenhydrAMINE 50 MG/ML SDV IVPUSH ONE (11:49)
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
== END 2021-02-02 12:51 | disposition home or self-care (01) ==
LOC: JD.ED 11:08
DX: G43.909 Migraine, unspecified, not intractable, without status migrainosus (principal); I10 Essential (primary) hypertension; K21.9 Gastro-esophageal reflux disease without esophagitis; E11.9 Type 2 diabetes mellitus without complications; E66.9 Obesity, unspecified; Z68.30 Body mass index [BMI] 30.0-30.9, adult; Z88.1 Allergy status to other antibiotic agents; Z88.8 Allergy status to other drugs, medicaments and biological substances; Z88.0 Allergy status to penicillin; Z88.5 Allergy status to narcotic agent; Z79.82 Long term (current) use of aspirin; Z79.899 Other long term (current) drug therapy; Z79.84 Long term (current) use of oral hypoglycemic drugs; E78.00 Pure hypercholesterolemia, unspecified
CPT/HCPCS: 96374; 96375; 99283; J1170; J1200; J1885; J2405; J7030

== ENCOUNTER 2021-02-13 08:11 | Emergency (ER) | payer MEDICAID ==
[2021-02-13 08:23] VITALS: BP 174/79; PULSE 78
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
[2021-02-13] MEDS ORDERED: HYDROmorphone 1 MG/ML Syringe IVPUSH ONE (08:43)
[2021-02-13] MEDS ORDERED: Metoclopramide 10 MG/2 ML SDV IVPUSH ONE (08:43)
[2021-02-13] MEDS ORDERED: diphenhydrAMINE 50 MG/ML SDV IVPUSH ONE (08:43)
[2021-02-13] MEDS ORDERED: Ketorolac 30 MG/ML SDV IVPUSH SCH (08:45)
[2021-02-13] MEDS ORDERED: Dextrose 5%-0.9% NaCl 1,000 ML IV SCH (08:45)
== END 2021-02-13 10:22 | disposition home or self-care (01) ==
LOC: JD.ED 08:11
DX: G43.009 Migraine without aura, not intractable, without status migrainosus (principal); I10 Essential (primary) hypertension; J45.909 Unspecified asthma, uncomplicated; K21.9 Gastro-esophageal reflux disease without esophagitis; M19.90 Unspecified osteoarthritis, unspecified site; E11.9 Type 2 diabetes mellitus without complications; E66.9 Obesity, unspecified; Z68.29 Body mass index [BMI] 29.0-29.9, adult; Z86.711 Personal history of pulmonary embolism; Z88.8 Allergy status to other drugs, medicaments and biological substances; Z88.1 Allergy status to other antibiotic agents; Z88.0 Allergy status to penicillin; Z79.82 Long term (current) use of aspirin; Z79.84 Long term (current) use of oral hypoglycemic drugs; Z79.899 Other long term (current) drug therapy
CPT/HCPCS: 96374; 96375; 99283; J1170; J1200; J1885; J2765; J7042

== ENCOUNTER 2021-02-21 11:45 | Emergency (ER) | payer MEDICAID ==
[2021-02-21 12:05] VITALS: BP 164/80; PULSE 79
[2021-02-21] MEDS ORDERED: Sodium Chloride 0.9% 1,000 ML IV STA (12:31)
[2021-02-21] MEDS ORDERED: Ondansetron 4 MG/2 ML SDV IVPUSH ONE (12:31)
[2021-02-21] MEDS ORDERED: HYDROmorphone 1 MG/ML Syringe IVPUSH ONE (12:31)
[2021-02-21] MEDS ORDERED: Ketorolac 30 MG/ML SDV IVPUSH ONE (12:31)
[2021-02-21] MEDS ORDERED: diphenhydrAMINE 50 MG/ML SDV IVPUSH ONE (12:32)
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
== END 2021-02-21 15:00 | disposition home or self-care (01) ==
LOC: JD.ED 11:45
DX: G43.009 Migraine without aura, not intractable, without status migrainosus (principal); E78.00 Pure hypercholesterolemia, unspecified; I10 Essential (primary) hypertension; K21.9 Gastro-esophageal reflux disease without esophagitis; E11.9 Type 2 diabetes mellitus without complications; E66.9 Obesity, unspecified; Z68.30 Body mass index [BMI] 30.0-30.9, adult; Z88.1 Allergy status to other antibiotic agents; Z88.0 Allergy status to penicillin; Z88.8 Allergy status to other drugs, medicaments and biological substances; Z79.82 Long term (current) use of aspirin; Z79.84 Long term (current) use of oral hypoglycemic drugs; Z79.899 Other long term (current) drug therapy
CPT/HCPCS: 96374; 96375; 99283; J1170; J1200; J1885; J2405; J7030; 99284

== ENCOUNTER 2021-02-24 08:42 | Emergency (ER) | payer MEDICAID ==
[2021-02-24 09:26] VITALS: BP 166/88; PULSE 110
[2021-02-24] MEDS ORDERED: Sodium Chloride 0.9% 10 ML Syringe FLUSH PRN (10:07)
[2021-02-24] MEDS ORDERED: Metoclopramide 10 MG/2 ML SDV IVPUSH ONE (10:07)
[2021-02-24] MEDS ORDERED: diphenhydrAMINE 50 MG/ML SDV IVPUSH ONE (10:07)
[2021-02-24] MEDS ORDERED: Ketorolac 30 MG/ML SDV IVPUSH SCH (10:15)
[2021-02-24] MEDS ORDERED: Sodium Chloride 0.9% 1,000 ML IV SCH (10:15)
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
[2021-02-24] MEDS ORDERED: HYDROmorphone 1 MG/ML Syringe IVPUSH ONE (11:25)
== END 2021-02-24 12:16 | disposition home or self-care (01) ==
LOC: JD.ED 08:42
DX: R51.9 Headache, unspecified (principal); E78.00 Pure hypercholesterolemia, unspecified; I10 Essential (primary) hypertension; K21.9 Gastro-esophageal reflux disease without esophagitis; E11.9 Type 2 diabetes mellitus without complications; E66.9 Obesity, unspecified; Z68.31 Body mass index [BMI] 31.0-31.9, adult; Z88.1 Allergy status to other antibiotic agents; Z88.0 Allergy status to penicillin; Z88.8 Allergy status to other drugs, medicaments and biological substances; Z79.82 Long term (current) use of aspirin; Z79.899 Other long term (current) drug therapy
CPT/HCPCS: 96374; 96375; 99283; J1170; J1200; J1885; J2765; J7030; 99284

== ENCOUNTER 2021-03-03 12:52 | Emergency (ER) | payer MEDICAID ==
[2021-03-03 13:54] VITALS: BP 162/91; PULSE 85
[2021-03-03] MEDS ORDERED: Metoclopramide 10 MG/2 ML SDV IM ONE (14:51)
[2021-03-03] MEDS ORDERED: diphenhydrAMINE 50 MG/ML SDV IM ONE (14:51)
[2021-03-03] MEDS ORDERED: HYDROmorphone 1 MG/ML Syringe IM ONE (14:51)
[2021-03-03] MEDS ORDERED: Ketorolac 30 MG/ML SDV IM ONE (14:51)
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
== END 2021-03-03 16:25 | disposition home or self-care (01) ==
LOC: JD.ED 12:52
DX: G43.809 Other migraine, not intractable, without status migrainosus (principal); E78.00 Pure hypercholesterolemia, unspecified; I10 Essential (primary) hypertension; E11.9 Type 2 diabetes mellitus without complications; E66.9 Obesity, unspecified; Z68.29 Body mass index [BMI] 29.0-29.9, adult; Z88.0 Allergy status to penicillin; Z88.1 Allergy status to other antibiotic agents; Z88.8 Allergy status to other drugs, medicaments and biological substances; Z79.82 Long term (current) use of aspirin; Z79.899 Other long term (current) drug therapy
CPT/HCPCS: 96372; 99283; J1170; J1200; J1885; J2765; 99284

== ENCOUNTER 2021-03-24 12:06 | Emergency (ER) | payer MEDICAID ==
[2021-03-24] MEDS ORDERED: HYDROmorphone 1 MG/ML Syringe IM ONE (12:16)
[2021-03-24] MEDS ORDERED: diphenhydrAMINE 50 MG/ML SDV IM ONE (12:16)
[2021-03-24] MEDS ORDERED: Metoclopramide 10 MG/2 ML SDV IM ONE (12:16)
[2021-03-24] MEDS ORDERED: Ketorolac 30 MG/ML SDV IM ONE (12:16)
[2021-03-24 12:20] VITALS: BP 153/87; PULSE 111
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
== END 2021-03-24 13:45 | disposition home or self-care (01) ==
LOC: JD.ED 12:06
DX: G43.809 Other migraine, not intractable, without status migrainosus (principal); E11.9 Type 2 diabetes mellitus without complications; K21.9 Gastro-esophageal reflux disease without esophagitis; E78.00 Pure hypercholesterolemia, unspecified; I10 Essential (primary) hypertension; E66.9 Obesity, unspecified; Z88.1 Allergy status to other antibiotic agents; Z88.0 Allergy status to penicillin; Z88.5 Allergy status to narcotic agent; Z88.8 Allergy status to other drugs, medicaments and biological substances; Z79.899 Other long term (current) drug therapy; Z79.82 Long term (current) use of aspirin; Z79.84 Long term (current) use of oral hypoglycemic drugs; Z68.29 Body mass index [BMI] 29.0-29.9, adult
CPT/HCPCS: 96372; 99283; J1170; J1200; J1885; J2765; 99284

== ENCOUNTER 2021-04-06 13:02 | Emergency (ER) | payer MEDICAID, OTHER ==
[2021-04-06 13:11] VITALS: BP 178/85; PULSE 80
[2021-04-06] MEDS ORDERED: Ketorolac 60 MG/2 ML SDV IM ONE (13:57)
[2021-04-06] MEDS ORDERED: diphenhydrAMINE 50 MG/ML SDV IM ONE (13:57)
[2021-04-06] MEDS ORDERED: Metoclopramide 10 MG/2 ML SDV IM ONE (13:57)
[2021-04-06] MEDS ORDERED: HYDROmorphone 1 MG/ML Syringe IM ONE (13:58)
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
== END 2021-04-06 16:08 | disposition home or self-care (01) ==
LOC: JD.ED 13:02
DX: G43.909 Migraine, unspecified, not intractable, without status migrainosus (principal); I10 Essential (primary) hypertension; J45.909 Unspecified asthma, uncomplicated; K21.9 Gastro-esophageal reflux disease without esophagitis; M19.90 Unspecified osteoarthritis, unspecified site; E11.9 Type 2 diabetes mellitus without complications; E66.9 Obesity, unspecified; Z68.28 Body mass index [BMI] 28.0-28.9, adult; Z88.1 Allergy status to other antibiotic agents; Z88.0 Allergy status to penicillin; Z88.8 Allergy status to other drugs, medicaments and biological substances; Z79.82 Long term (current) use of aspirin; Z79.84 Long term (current) use of oral hypoglycemic drugs; Z79.899 Other long term (current) drug therapy
CPT/HCPCS: 96372; 99282; J1170; J1200; J1885; J2765

== ENCOUNTER 2021-05-01 09:05 | Emergency (ER) | payer MEDICAID ==
[2021-05-01 09:23] VITALS: BP 126/86; PULSE 76
[2021-05-01] MEDS ORDERED: Ketorolac 60 MG/2 ML SDV IM ONE (09:58)
[2021-05-01] MEDS ORDERED: HYDROmorphone 1 MG/ML Syringe IM ONE (09:58)
[2021-05-01] MEDS ORDERED: diphenhydrAMINE 50 MG/ML SDV IM ONE (09:58)
[2021-05-01] MEDS ORDERED: Ondansetron 4 MG Tab.DIS PO ONE (10:04)
[2021-05-01] MEDS ORDERED: HYDROmorphone 0.5 MG/0.5 ML Syringe IM ONE (11:38)
== END 2021-05-01 12:09 | disposition home or self-care (01) ==
LOC: JD.ED 09:05
DX: G43.909 Migraine, unspecified, not intractable, without status migrainosus (principal); E11.9 Type 2 diabetes mellitus without complications; E66.9 Obesity, unspecified; K21.9 Gastro-esophageal reflux disease without esophagitis; Z68.29 Body mass index [BMI] 29.0-29.9, adult; Z88.1 Allergy status to other antibiotic agents; Z88.0 Allergy status to penicillin; Z88.8 Allergy status to other drugs, medicaments and biological substances; Z79.82 Long term (current) use of aspirin; Z79.899 Other long term (current) drug therapy; Z79.84 Long term (current) use of oral hypoglycemic drugs
CPT/HCPCS: 96372; 99283; A9270; J1170; J1200; J1885

== ENCOUNTER 2021-05-18 13:14 | Emergency (ER) | payer MEDICAID, SELFPAY ==
[2021-05-18 13:46] VITALS: BP 176/91; PULSE 87
[2021-05-18] MEDS ORDERED: Metoclopramide 10 MG/2 ML SDV IVPUSH ONE (14:49)
[2021-05-18] MEDS ORDERED: Ketorolac 30 MG/ML SDV IVPUSH ONE (14:49)
[2021-05-18] MEDS ORDERED: Sodium Chloride 0.9% 1,000 ML IV ONE (14:49)
[2021-05-18] MEDS ORDERED: diphenhydrAMINE 50 MG/ML SDV IVPUSH ONE (14:49)
== END 2021-05-18 15:47 | disposition left against medical advice (07) ==
LOC: JD.ED 13:14
DX: G43.809 Other migraine, not intractable, without status migrainosus (principal); E78.00 Pure hypercholesterolemia, unspecified; I10 Essential (primary) hypertension; K21.9 Gastro-esophageal reflux disease without esophagitis; E11.9 Type 2 diabetes mellitus without complications; E66.9 Obesity, unspecified; Z68.30 Body mass index [BMI] 30.0-30.9, adult; Z88.0 Allergy status to penicillin; Z88.1 Allergy status to other antibiotic agents; Z88.8 Allergy status to other drugs, medicaments and biological substances; Z79.899 Other long term (current) drug therapy; Z79.82 Long term (current) use of aspirin; Z79.84 Long term (current) use of oral hypoglycemic drugs
CPT/HCPCS: 99283

== ENCOUNTER 2021-05-31 16:12 | Emergency (ER) | payer MEDICAID ==
[2021-05-31 16:24] VITALS: BP 163/90; PULSE 80
[2021-05-31] MEDS ORDERED: Metoclopramide 10 MG/2 ML SDV IM ONE (16:30)
[2021-05-31] MEDS ORDERED: diphenhydrAMINE 50 MG/ML SDV IM ONE (16:30)
[2021-05-31] MEDS ORDERED: Ketorolac 30 MG/ML SDV IM ONE (16:30)
[2021-05-31] MEDS ORDERED: HYDROmorphone 0.5 MG/0.5 ML Syringe IM ONE (16:31)
== END 2021-05-31 17:51 | disposition home or self-care (01) ==
LOC: JD.ED 16:12
DX: G43.809 Other migraine, not intractable, without status migrainosus (principal); I10 Essential (primary) hypertension; E78.00 Pure hypercholesterolemia, unspecified; J45.909 Unspecified asthma, uncomplicated; K21.9 Gastro-esophageal reflux disease without esophagitis; M19.90 Unspecified osteoarthritis, unspecified site; E11.9 Type 2 diabetes mellitus without complications; E66.9 Obesity, unspecified; Z68.30 Body mass index [BMI] 30.0-30.9, adult; Z88.1 Allergy status to other antibiotic agents; Z88.0 Allergy status to penicillin; Z88.8 Allergy status to other drugs, medicaments and biological substances; Z79.82 Long term (current) use of aspirin; Z79.84 Long term (current) use of oral hypoglycemic drugs; Z79.899 Other long term (current) drug therapy
CPT/HCPCS: 96372; 99283; J1170; J1200; J1885; J2765; 99284

== ENCOUNTER 2021-06-21 12:41 | Emergency (ER) | payer MEDICAID, OTHER ==
[2021-06-21] MEDS ORDERED: HYDROmorphone 1 MG/ML Syringe IM ONE (13:19)
[2021-06-21] MEDS ORDERED: diphenhydrAMINE 50 MG/ML SDV IM ONE (13:19)
[2021-06-21] MEDS ORDERED: Metoclopramide 10 MG/2 ML SDV IM ONE (13:19)
[2021-06-21 14:13] VITALS: BP 134/76; PULSE 70
== END 2021-06-21 14:12 | disposition home or self-care (01) ==
LOC: JD.ED 12:41
DX: G43.809 Other migraine, not intractable, without status migrainosus (principal); J45.909 Unspecified asthma, uncomplicated; K21.9 Gastro-esophageal reflux disease without esophagitis; E11.9 Type 2 diabetes mellitus without complications; E66.9 Obesity, unspecified; Z68.29 Body mass index [BMI] 29.0-29.9, adult; Z88.0 Allergy status to penicillin; Z88.1 Allergy status to other antibiotic agents; Z88.8 Allergy status to other drugs, medicaments and biological substances; Z79.82 Long term (current) use of aspirin; Z79.84 Long term (current) use of oral hypoglycemic drugs; Z79.899 Other long term (current) drug therapy
CPT/HCPCS: 96372; 99283; J1170; J1200; J2765; 99284

== ENCOUNTER 2021-07-19 11:59 | Emergency (ER) | payer MEDICAID ==
[2021-07-19 12:11] VITALS: BP 157/75; PULSE 88
[2021-07-19] MEDS ORDERED: Ketorolac 60 MG/2 ML SDV IM ONE (12:19)
[2021-07-19] MEDS ORDERED: Metoclopramide 10 MG/2 ML SDV IM ONE (12:19)
[2021-07-19] MEDS ORDERED: HYDROmorphone 1 MG/ML Syringe IM ONE (12:20)
[2021-07-19] MEDS ORDERED: diphenhydrAMINE 50 MG/ML SDV IM ONE (12:20)
== END 2021-07-19 13:42 | disposition home or self-care (01) ==
LOC: JD.ED 11:59
DX: G43.909 Migraine, unspecified, not intractable, without status migrainosus (principal); E78.00 Pure hypercholesterolemia, unspecified; I10 Essential (primary) hypertension; E11.9 Type 2 diabetes mellitus without complications; E66.9 Obesity, unspecified; Z68.29 Body mass index [BMI] 29.0-29.9, adult; Z88.0 Allergy status to penicillin; Z88.1 Allergy status to other antibiotic agents; Z88.8 Allergy status to other drugs, medicaments and biological substances; Z79.82 Long term (current) use of aspirin; Z79.899 Other long term (current) drug therapy; Z79.84 Long term (current) use of oral hypoglycemic drugs
CPT/HCPCS: 96372; 99283; J1170; J1200; J1885; J2765; 99284

== ENCOUNTER 2021-07-25 14:21 | Emergency (ER) | payer MEDICAID ==
[2021-07-25] MEDS ORDERED: Lactated Ringers 1,000 ML IV ONE (15:17)
[2021-07-25] MEDS ORDERED: Metoclopramide 10 MG/2 ML SDV IVPUSH ONE (15:17)
[2021-07-25] MEDS ORDERED: diphenhydrAMINE 50 MG/ML SDV IVPUSH ONE (15:17)
[2021-07-25] MEDS ORDERED: Ketorolac 15 MG/ML SDV IVPUSH ONE (15:17)
[2021-07-25 16:47] VITALS: BP 148/85; PULSE 84
== END 2021-07-25 16:45 | disposition home or self-care (01) ==
LOC: JD.ED 14:21
DX: G43.909 Migraine, unspecified, not intractable, without status migrainosus (principal); E78.00 Pure hypercholesterolemia, unspecified; I10 Essential (primary) hypertension; K21.9 Gastro-esophageal reflux disease without esophagitis; E11.9 Type 2 diabetes mellitus without complications; E66.9 Obesity, unspecified; Z68.30 Body mass index [BMI] 30.0-30.9, adult; Z88.1 Allergy status to other antibiotic agents; Z88.0 Allergy status to penicillin; Z88.8 Allergy status to other drugs, medicaments and biological substances; Z79.82 Long term (current) use of aspirin; Z79.899 Other long term (current) drug therapy; Z79.84 Long term (current) use of oral hypoglycemic drugs
CPT/HCPCS: 96374; 96375; 99283; J1200; J1885; J2765; J7120; 99284

== ENCOUNTER 2021-07-27 09:57 | Emergency (ER) | payer MEDICAID ==
[2021-07-27 10:05] VITALS: BP 173/89; PULSE 70
[2021-07-27] MEDS ORDERED: Metoclopramide 10 MG/2 ML SDV IVPUSH ONE (10:06)
[2021-07-27] MEDS ORDERED: diphenhydrAMINE 50 MG/ML SDV IVPUSH ONE (10:06)
[2021-07-27] MEDS ORDERED: HYDROmorphone 1 MG/ML Syringe IVPUSH ONE (10:07)
[2021-07-27] MEDS ORDERED: Dextrose 5%-0.9% NaCl 1,000 ML IV SCH (10:15)
[2021-07-27] MEDS ORDERED: Ketorolac 30 MG/ML SDV IVPUSH SCH (10:15)
[2021-07-27] MEDS ORDERED: HYDROmorphone 0.5 MG/0.5 ML Syringe IVPUSH ONE (11:15)
== END 2021-07-27 11:41 | disposition home or self-care (01) ==
LOC: JD.ED 09:57
DX: G43.909 Migraine, unspecified, not intractable, without status migrainosus (principal); E78.00 Pure hypercholesterolemia, unspecified; I10 Essential (primary) hypertension; K21.9 Gastro-esophageal reflux disease without esophagitis; E11.9 Type 2 diabetes mellitus without complications; E66.9 Obesity, unspecified; Z68.28 Body mass index [BMI] 28.0-28.9, adult; Z88.0 Allergy status to penicillin; Z88.1 Allergy status to other antibiotic agents; Z88.8 Allergy status to other drugs, medicaments and biological substances; Z79.899 Other long term (current) drug therapy; Z79.4 Long term (current) use of insulin
CPT/HCPCS: 96374; 96375; 96376; 99283; J1170; J1200; J1885; J2765; J7042; 99285

== ENCOUNTER 2021-08-21 09:00 | Emergency (ER) | payer MEDICAID ==
[2021-08-21] MEDS ORDERED: HYDROmorphone 1 MG/ML Syringe IVPUSH ONE (09:19)
[2021-08-21] MEDS ORDERED: Sodium Chloride 0.9% 1,000 ML IV ONE (09:19)
[2021-08-21] MEDS ORDERED: Metoclopramide 10 MG/2 ML SDV IVPUSH ONE (09:19)
[2021-08-21] MEDS ORDERED: Ketorolac 30 MG/ML SDV IVPUSH ONE (09:19)
[2021-08-21] MEDS ORDERED: diphenhydrAMINE 50 MG/ML SDV IVPUSH ONE (09:20)
[2021-08-21 11:25] VITALS: BP 152/78; PULSE 68
== END 2021-08-21 11:20 | disposition home or self-care (01) ==
LOC: JD.ED 09:00
DX: G43.909 Migraine, unspecified, not intractable, without status migrainosus (principal); E11.9 Type 2 diabetes mellitus without complications; E78.00 Pure hypercholesterolemia, unspecified; I10 Essential (primary) hypertension; E66.9 Obesity, unspecified; Z68.29 Body mass index [BMI] 29.0-29.9, adult; Z88.0 Allergy status to penicillin; Z88.1 Allergy status to other antibiotic agents; Z88.8 Allergy status to other drugs, medicaments and biological substances; Z79.82 Long term (current) use of aspirin; Z79.899 Other long term (current) drug therapy; Z79.84 Long term (current) use of oral hypoglycemic drugs; Z87.891 Personal history of nicotine dependence
CPT/HCPCS: 96374; 96375; 99283; J1170; J1200; J1885; J2765; J7030

== ENCOUNTER 2021-08-25 10:29 | Emergency (ER) | payer MEDICAID ==
[2021-08-25 10:45] VITALS: BP 164/91; PULSE 103
[2021-08-25] MEDS ORDERED: diphenhydrAMINE 50 MG/ML SDV IVPUSH ONE (11:35)
[2021-08-25] MEDS ORDERED: Ketorolac 15 MG/ML SDV IVPUSH ONE (11:35)
[2021-08-25] MEDS ORDERED: Metoclopramide 10 MG/2 ML SDV IVPUSH ONE (11:35)
[2021-08-25] MEDS ORDERED: Sodium Chloride 0.9% 1,000 ML IV ONE (11:35)
== END 2021-08-25 13:13 | disposition home or self-care (01) ==
LOC: JD.ED 10:29
DX: G43.909 Migraine, unspecified, not intractable, without status migrainosus (principal); E11.9 Type 2 diabetes mellitus without complications; K21.9 Gastro-esophageal reflux disease without esophagitis; E66.9 Obesity, unspecified; Z68.30 Body mass index [BMI] 30.0-30.9, adult; Z88.1 Allergy status to other antibiotic agents; Z88.0 Allergy status to penicillin; Z88.8 Allergy status to other drugs, medicaments and biological substances; Z79.82 Long term (current) use of aspirin; Z79.899 Other long term (current) drug therapy
CPT/HCPCS: 96374; 96375; 99283; J1200; J1885; J2765; J7030

== ENCOUNTER 2021-09-14 09:57 | Emergency (ER) | payer MEDICAID ==
[2021-09-14 10:08] VITALS: BP 153/92; PULSE 100
[2021-09-14] MEDS ORDERED: Sodium Chloride 0.9% 1,000 ML IV ONE (10:21)
[2021-09-14] MEDS ORDERED: Ketorolac 30 MG/ML SDV IVPUSH ONE (10:21)
[2021-09-14] MEDS ORDERED: Sodium Chloride 0.9% 10 ML Syringe FLUSH PRN (10:21)
[2021-09-14] MEDS ORDERED: Metoclopramide 10 MG/2 ML SDV IVPUSH ONE (10:22)
[2021-09-14] MEDS ORDERED: diphenhydrAMINE 50 MG/ML SDV IVPUSH ONE (10:22)
[2021-09-14] MEDS ORDERED: HYDROmorphone 1 MG/ML Syringe IVPUSH ONE (11:33)
== END 2021-09-14 13:04 | disposition home or self-care (01) ==
LOC: JD.ED 09:57
DX: G43.909 Migraine, unspecified, not intractable, without status migrainosus (principal); E78.00 Pure hypercholesterolemia, unspecified; I10 Essential (primary) hypertension; K21.9 Gastro-esophageal reflux disease without esophagitis; E11.9 Type 2 diabetes mellitus without complications; E66.9 Obesity, unspecified; Z68.29 Body mass index [BMI] 29.0-29.9, adult; Z88.0 Allergy status to penicillin; Z88.1 Allergy status to other antibiotic agents; Z88.8 Allergy status to other drugs, medicaments and biological substances; Z79.82 Long term (current) use of aspirin; Z79.899 Other long term (current) drug therapy
CPT/HCPCS: 96361; 96374; 96375; 99283; J1170; J1200; J1885; J2765; J3490; J7030

== ENCOUNTER 2021-09-22 11:21 | Emergency (ER) | payer MEDICAID ==
[2021-09-22] MEDS ORDERED: Metoclopramide 10 MG/2 ML SDV IVPUSH ONE (12:44)
[2021-09-22] MEDS ORDERED: HYDROmorphone 0.5 MG/0.5 ML Syringe IVPUSH ONE (12:44)
[2021-09-22] MEDS ORDERED: Sodium Chloride 0.9% 1,000 ML IV STA (12:44)
[2021-09-22] MEDS ORDERED: diphenhydrAMINE 50 MG/ML SDV IVPUSH ONE (12:45)
[2021-09-22] MEDS ORDERED: Ketorolac 30 MG/ML SDV IVPUSH ONE (12:45)
[2021-09-22 14:37] VITALS: BP 132/78; PULSE 66
== END 2021-09-22 14:37 | disposition home or self-care (01) ==
LOC: JD.ED 11:21
DX: G43.909 Migraine, unspecified, not intractable, without status migrainosus (principal); E78.00 Pure hypercholesterolemia, unspecified; I10 Essential (primary) hypertension; K21.9 Gastro-esophageal reflux disease without esophagitis; E11.9 Type 2 diabetes mellitus without complications; E66.9 Obesity, unspecified; Z68.31 Body mass index [BMI] 31.0-31.9, adult; Z90.49 Acquired absence of other specified parts of digestive tract; Z90.710 Acquired absence of both cervix and uterus
CPT/HCPCS: 96361; 96374; 96375; 99283; J1170; J1200; J1885; J2765; J7030

== ENCOUNTER 2021-09-30 11:17 | Emergency (ER) | payer MEDICAID ==
[2021-09-30 11:27] VITALS: PULSE 84
[2021-09-30] MEDS ORDERED: diphenhydrAMINE 50 MG/ML SDV IM ONE (11:32)
[2021-09-30] MEDS ORDERED: Metoclopramide 10 MG/2 ML SDV IM ONE (11:32)
[2021-09-30] MEDS ORDERED: HYDROmorphone 1 MG/ML Syringe IM ONE (11:32)
[2021-09-30 11:43] VITALS: BP 166/84
== END 2021-09-30 13:10 | disposition home or self-care (01) ==
LOC: JD.ED 11:17
DX: R51.9 Headache, unspecified (principal); E11.9 Type 2 diabetes mellitus without complications; K21.9 Gastro-esophageal reflux disease without esophagitis; E78.00 Pure hypercholesterolemia, unspecified; I10 Essential (primary) hypertension; E66.9 Obesity, unspecified; Z88.0 Allergy status to penicillin; Z88.1 Allergy status to other antibiotic agents; Z88.8 Allergy status to other drugs, medicaments and biological substances; Z79.82 Long term (current) use of aspirin; Z79.899 Other long term (current) drug therapy; Z79.84 Long term (current) use of oral hypoglycemic drugs; Z68.31 Body mass index [BMI] 31.0-31.9, adult
CPT/HCPCS: 96372; 99283; J1170; J1200; J2765; 99282

== ENCOUNTER 2021-10-17 06:53 | Emergency (ER) | payer MEDICAID ==
[2021-10-17] MEDS ORDERED: HYDROmorphone 1 MG/ML Syringe IVPUSH ONE (07:45)
[2021-10-17] MEDS ORDERED: diphenhydrAMINE 50 MG/ML SDV IVPUSH ONE (07:45)
[2021-10-17] MEDS ORDERED: Sodium Chloride 0.9% 1,000 ML IV ONE (07:45)
[2021-10-17] MEDS ORDERED: Ondansetron 4 MG/2 ML SDV IVPUSH ONE (07:45)
[2021-10-17 09:26] VITALS: BP 135/81; PULSE 90
== END 2021-10-17 09:20 | disposition home or self-care (01) ==
LOC: JD.ED 06:53
DX: R51.9 Headache, unspecified (principal); R11.2 Nausea with vomiting, unspecified; E78.00 Pure hypercholesterolemia, unspecified; I10 Essential (primary) hypertension; K21.9 Gastro-esophageal reflux disease without esophagitis; E11.9 Type 2 diabetes mellitus without complications; E66.9 Obesity, unspecified; Z68.28 Body mass index [BMI] 28.0-28.9, adult; Z88.1 Allergy status to other antibiotic agents; Z88.0 Allergy status to penicillin; Z88.8 Allergy status to other drugs, medicaments and biological substances; Z79.82 Long term (current) use of aspirin; Z79.899 Other long term (current) drug therapy
CPT/HCPCS: 96361; 96374; 96375; 99283; 99283-25; J1170; J1200; J2405; J7030

== ENCOUNTER 2021-10-23 12:36 | Emergency (ER) | payer MEDICAID ==
[2021-10-23 12:58] VITALS: BP 163/85; PULSE 83
[2021-10-23] MEDS ORDERED: Metoclopramide 10 MG/2 ML SDV IVPUSH ONE (13:04)
[2021-10-23] MEDS ORDERED: HYDROmorphone 1 MG/ML Syringe IVPUSH ONE (13:04)
[2021-10-23] MEDS ORDERED: diphenhydrAMINE 50 MG/ML SDV IVPUSH ONE (13:05)
[2021-10-23] MEDS ORDERED: Dexamethasone 4 MG/ML SDV IVPUSH ONE (13:07)
[2021-10-23] MEDS ORDERED: Dextrose 5%-0.9% NaCl 1,000 ML IV SCH (13:15)
== END 2021-10-23 16:22 | disposition home or self-care (01) ==
LOC: JD.ED 12:36
DX: G43.909 Migraine, unspecified, not intractable, without status migrainosus (principal); I10 Essential (primary) hypertension; E11.9 Type 2 diabetes mellitus without complications; E78.00 Pure hypercholesterolemia, unspecified; K21.9 Gastro-esophageal reflux disease without esophagitis; F41.9 Anxiety disorder, unspecified; F32.A Depression, unspecified; M19.90 Unspecified osteoarthritis, unspecified site; Z79.82 Long term (current) use of aspirin; Z79.899 Other long term (current) drug therapy; Z88.1 Allergy status to other antibiotic agents; Z88.8 Allergy status to other drugs, medicaments and biological substances; Z88.0 Allergy status to penicillin
CPT/HCPCS: 96361; 96374; 96375; 99283; J1100; J1170; J1200; J2765; J7042

== ENCOUNTER 2021-11-05 12:39 | Emergency (ER) | payer MEDICAID ==
[2021-11-05 13:25] VITALS: BP 152/82
[2021-11-05] MEDS ORDERED: Sodium Chloride 0.9% 10 ML Syringe FLUSH PRN (13:30)
[2021-11-05] MEDS ORDERED: HYDROmorphone 1 MG/ML Syringe IVPUSH ONE (13:45)
[2021-11-05] MEDS ORDERED: Metoclopramide 10 MG/2 ML SDV IVPUSH ONE (13:45)
[2021-11-05] MEDS ORDERED: Ketorolac 60 MG/2 ML SDV IM ONE (13:45)
[2021-11-05] MEDS ORDERED: Sodium Chloride 0.9% 1,000 ML IV STA (13:45)
[2021-11-05] MEDS ORDERED: diphenhydrAMINE 50 MG/ML SDV IVPUSH ONE (13:46)
[2021-11-05 15:55] VITALS: PULSE 84
== END 2021-11-05 15:50 | disposition home or self-care (01) ==
LOC: JD.ED 12:39
DX: G43.909 Migraine, unspecified, not intractable, without status migrainosus (principal); E11.9 Type 2 diabetes mellitus without complications; E66.9 Obesity, unspecified; Z68.29 Body mass index [BMI] 29.0-29.9, adult; Z88.1 Allergy status to other antibiotic agents; Z88.0 Allergy status to penicillin; Z88.8 Allergy status to other drugs, medicaments and biological substances; Z79.82 Long term (current) use of aspirin; Z79.899 Other long term (current) drug therapy; Z79.84 Long term (current) use of oral hypoglycemic drugs
CPT/HCPCS: 96361; 96372; 96374; 96375; 99283; J1170; J1200; J1885; J2765; J3490; J7030

== ENCOUNTER 2021-12-11 10:32 | Emergency (ER) | payer MEDICAID ==
[2021-12-11 10:44] VITALS: BP 158/96; PULSE 93
[2021-12-11] MEDS ORDERED: Metoclopramide 10 MG/2 ML SDV IM ONE (11:20)
[2021-12-11] MEDS ORDERED: Ketorolac 30 MG/ML SDV IM ONE (11:20)
[2021-12-11] MEDS ORDERED: diphenhydrAMINE 50 MG/ML SDV IM ONE (11:20)
[2021-12-11] MEDS ORDERED: HYDROmorphone 1 MG/ML Syringe IM ONE (11:22)
== END 2021-12-11 14:17 | disposition home or self-care (01) ==
LOC: JD.ED 10:32
DX: G43.909 Migraine, unspecified, not intractable, without status migrainosus (principal); I10 Essential (primary) hypertension; E11.9 Type 2 diabetes mellitus without complications; E66.9 Obesity, unspecified; Z68.28 Body mass index [BMI] 28.0-28.9, adult; Z88.1 Allergy status to other antibiotic agents; Z88.0 Allergy status to penicillin; Z88.8 Allergy status to other drugs, medicaments and biological substances; Z88.6 Allergy status to analgesic agent; Z79.899 Other long term (current) drug therapy; Z79.82 Long term (current) use of aspirin; Z79.84 Long term (current) use of oral hypoglycemic drugs; Z90.49 Acquired absence of other specified parts of digestive tract; Z90.710 Acquired absence of both cervix and uterus
CPT/HCPCS: 96372; 99283; J1170; J1200; J1885; J2765

== ENCOUNTER 2021-12-13 16:16 | Emergency (ER) | payer MEDICAID ==
[2021-12-13] MEDS ORDERED: Sodium Chloride 0.9% 1,000 ML IV ONE (17:53)
[2021-12-13] MEDS ORDERED: diphenhydrAMINE 50 MG/ML SDV IVPUSH ONE (17:53)
[2021-12-13] MEDS ORDERED: Metoclopramide 10 MG/2 ML SDV IVPUSH ONE (17:53)
[2021-12-13] MEDS ORDERED: Ketorolac 30 MG/ML SDV IVPUSH ONE (17:53)
[2021-12-13 19:21] VITALS: BP 149/80; PULSE 78
== END 2021-12-13 19:09 | disposition home or self-care (01) ==
LOC: JD.ED 16:16
DX: G43.909 Migraine, unspecified, not intractable, without status migrainosus (principal); I10 Essential (primary) hypertension; E11.9 Type 2 diabetes mellitus without complications; E66.9 Obesity, unspecified; Z68.28 Body mass index [BMI] 28.0-28.9, adult; Z88.1 Allergy status to other antibiotic agents; Z88.0 Allergy status to penicillin; Z88.8 Allergy status to other drugs, medicaments and biological substances; Z88.6 Allergy status to analgesic agent; Z79.82 Long term (current) use of aspirin; Z79.899 Other long term (current) drug therapy; Z90.49 Acquired absence of other specified parts of digestive tract; Z90.710 Acquired absence of both cervix and uterus
CPT/HCPCS: 96361; 96374; 96375; 99283; J1200; J1885; J2765; J7030

== ENCOUNTER 2021-12-18 17:02 | Emergency (ER) | payer MEDICAID ==
[2021-12-18 17:42] VITALS: BP 172/95; PULSE 115
[2021-12-18] MEDS: Metoclopramide 10 MG/2 ML SDV IVPUSH ONE (18:09)
[2021-12-18] MEDS: HYDROmorphone 1 MG/ML Syringe IVPUSH ONE (18:09)
[2021-12-18] MEDS: Ketorolac 30 MG/ML SDV IVPUSH ONE (18:09)
[2021-12-18] MEDS: diphenhydrAMINE 50 MG/ML SDV IVPUSH ONE (18:09)
[2021-12-18] MEDS: Sodium Chloride 0.9% 10 ML Syringe FLUSH PRN (18:11)
== END 2021-12-18 19:00 | disposition home or self-care (01) ==
LOC: JD.ED 17:02
DX: R51.9 Headache, unspecified (principal); E78.00 Pure hypercholesterolemia, unspecified; I10 Essential (primary) hypertension; K21.9 Gastro-esophageal reflux disease without esophagitis; E11.9 Type 2 diabetes mellitus without complications; E66.9 Obesity, unspecified; Z68.29 Body mass index [BMI] 29.0-29.9, adult; Z86.16 Personal history of COVID-19; Z88.1 Allergy status to other antibiotic agents; Z88.0 Allergy status to penicillin; Z88.8 Allergy status to other drugs, medicaments and biological substances; Z79.82 Long term (current) use of aspirin; Z79.899 Other long term (current) drug therapy; Z79.84 Long term (current) use of oral hypoglycemic drugs; Z87.891 Personal history of nicotine dependence
CPT/HCPCS: 96374; 96375; 99283; J1170; J1200; J1885; J2765; J3490

== ENCOUNTER 2022-01-08 07:13 | Emergency (ER) | payer MEDICAID ==
[2022-01-08] MEDS ORDERED: Lactated Ringers 1,000 ML IV ONE (07:38)
[2022-01-08] MEDS ORDERED: Ketorolac 15 MG/ML SDV IVPUSH ONE (07:38)
[2022-01-08] MEDS ORDERED: diphenhydrAMINE 50 MG/ML SDV IVPUSH ONE (07:38)
[2022-01-08] MEDS ORDERED: Metoclopramide 10 MG/2 ML SDV IVPUSH ONE (07:38)
[2022-01-08] MEDS ORDERED: Metoclopramide 10 MG/2 ML SDV ONE (07:47)
[2022-01-08] MEDS ORDERED: diphenhydrAMINE 50 MG/ML SDV ONE (07:47)
[2022-01-08] MEDS ORDERED: Ketorolac 15 MG/ML SDV ONE (07:47)
[2022-01-08] MEDS ORDERED: Haloperidol Lactate 5 MG/ML SDV IVPUSH ONE (08:22)
[2022-01-08] MEDS ORDERED: Haloperidol Lactate 5 MG/ML SDV ONE (08:30)
[2022-01-08 09:10] VITALS: BP 157/83; PULSE 80
== END 2022-01-08 09:10 | disposition home or self-care (01) ==
LOC: JD.ED 07:13
DX: G43.909 Migraine, unspecified, not intractable, without status migrainosus (principal); E78.00 Pure hypercholesterolemia, unspecified; I10 Essential (primary) hypertension; E11.9 Type 2 diabetes mellitus without complications; E66.9 Obesity, unspecified; Z68.44 Body mass index [BMI] 60.0-69.9, adult; Z88.1 Allergy status to other antibiotic agents; Z88.0 Allergy status to penicillin; Z88.8 Allergy status to other drugs, medicaments and biological substances; Z88.6 Allergy status to analgesic agent; Z79.82 Long term (current) use of aspirin; Z79.899 Other long term (current) drug therapy; Z79.84 Long term (current) use of oral hypoglycemic drugs; Z90.49 Acquired absence of other specified parts of digestive tract
CPT/HCPCS: 96361; 96374; 96375; 99283; J1200; J1630; J1885; J2765; J7120; 99282

== ENCOUNTER 2022-02-04 23:39 | Emergency (ER) | payer MEDICAID ==
[2022-02-05 00:06] VITALS: BP 169/90
[2022-02-05] MEDS ORDERED: Haloperidol Lactate 5 MG/ML SDV IM ONE (00:44)
[2022-02-05] MEDS ORDERED: Ketorolac 30 MG/ML SDV IVPUSH STA (00:44)
[2022-02-05] MEDS ORDERED: Sodium Chloride 0.9% 1,000 ML IV ONE (00:44)
[2022-02-05] MEDS ORDERED: Ondansetron 4 MG/2 ML SDV IVPUSH ONE (00:44)
[2022-02-05] MEDS ORDERED: diphenhydrAMINE 50 MG/ML SDV IVPUSH STA (00:44)
[2022-02-05 01:20] VITALS: PULSE 77
== END 2022-02-05 02:10 | disposition home or self-care (01) ==
LOC: JD.ED 23:39
DX: G43.909 Migraine, unspecified, not intractable, without status migrainosus (principal); E78.00 Pure hypercholesterolemia, unspecified; I10 Essential (primary) hypertension; E11.9 Type 2 diabetes mellitus without complications; E66.9 Obesity, unspecified; Z68.28 Body mass index [BMI] 28.0-28.9, adult; Z88.1 Allergy status to other antibiotic agents; Z88.0 Allergy status to penicillin; Z88.8 Allergy status to other drugs, medicaments and biological substances; Z88.6 Allergy status to analgesic agent; Z79.82 Long term (current) use of aspirin; Z79.899 Other long term (current) drug therapy; Z86.16 Personal history of COVID-19; Z90.49 Acquired absence of other specified parts of digestive tract; Z90.710 Acquired absence of both cervix and uterus; Z79.84 Long term (current) use of oral hypoglycemic drugs
CPT/HCPCS: 96361; 96372; 96374; 96375; 99283; J1200; J1630; J1885; J2405; J7030

== ENCOUNTER 2022-04-23 14:35 | Emergency (ER) | payer MEDICAID, OTHER | END 2022-04-23 15:00 | LOC: JD.ED 14:35 | DX: Z53.21 Procedure and treatment not carried out due to patient leaving prior to being seen by health care provider (principal) ==

== ENCOUNTER 2022-08-10 09:50 | Emergency (ER) | payer SELFPAY ==
[2022-08-10 10:11] VITALS: BP 162/82; PULSE 80
[2022-08-10] MEDS ORDERED: diphenhydrAMINE 50 MG/ML SDV IVPUSH ONE (11:03)
[2022-08-10] MEDS ORDERED: Metoclopramide 10 MG/2 ML SDV IVPUSH ONE (11:03)
[2022-08-10] MEDS ORDERED: Ketorolac 30 MG/ML SDV IVPUSH ONE (11:03)
[2022-08-10] MEDS ORDERED: Sodium Chloride 0.9% 1,000 ML IV STA (11:03)
[2022-08-10] MEDS ORDERED: HYDROmorphone 0.5 MG/0.5 ML Syringe IVPUSH ONE (11:03)
[2022-08-10] MEDS ORDERED: Acetaminophen 325 MG Tab PO ONE (13:25)
== END 2022-08-10 13:49 | disposition home or self-care (01) ==
LOC: JD.ED 09:50
DX: G43.909 Migraine, unspecified, not intractable, without status migrainosus (principal); E78.00 Pure hypercholesterolemia, unspecified; I10 Essential (primary) hypertension; J45.909 Unspecified asthma, uncomplicated; K21.9 Gastro-esophageal reflux disease without esophagitis; M19.90 Unspecified osteoarthritis, unspecified site; E11.9 Type 2 diabetes mellitus without complications; E66.9 Obesity, unspecified; Z68.27 Body mass index [BMI] 27.0-27.9, adult; Z88.1 Allergy status to other antibiotic agents; Z88.0 Allergy status to penicillin; Z88.8 Allergy status to other drugs, medicaments and biological substances; Z79.82 Long term (current) use of aspirin; Z79.84 Long term (current) use of oral hypoglycemic drugs; Z79.899 Other long term (current) drug therapy
CPT/HCPCS: 96361; 96374; 96375; 99283; A9270; J1170; J1200; J1885; J2765; J7030

== ENCOUNTER 2022-09-05 19:40 | Emergency (ER) | payer MEDICAID ==
[2022-09-05 19:51] VITALS: PULSE 87
[2022-09-05] MEDS ORDERED: Promethazine 25 MG in Sodium Chloride 0.9% 50 ML IV ONE (20:00)
[2022-09-05] MEDS ORDERED: diphenhydrAMINE 50 MG/ML SDV IVPUSH ONE (20:00)
[2022-09-05] MEDS ORDERED: Sodium Chloride 0.9% 1,000 ML IV ONE (20:00)
[2022-09-05] MEDS ORDERED: Ketorolac 30 MG/ML SDV IVPUSH ONE (20:00)
[2022-09-05] MEDS ORDERED: Sodium Chloride 0.9% 10 ML Syringe FLUSH PRN (20:00)
[2022-09-05] MEDS ORDERED: HYDROmorphone 0.5 MG/0.5 ML Syringe IVPUSH ONE (20:02)
[2022-09-05 20:18] LABS: BASOPHILS ABSOLUTE AUTO 0.05 K/mm3 (0.01-0.08); BASOPHILS PERCENT AUTO 0.6 % (0.1-1.2); EOSINOPHILS ABSOLUTE AUTO 0.11 K/mm3 (0.04-0.36); EOSINOPHILS PERCENT AUTO 1.3 (0.7-5.8); HEMATOCRIT 41.8 % (34.1-44.9); HEMOGLOBIN 13.6 gm/dl (11.2-15.7); IMMATURE GRAN ABSOLUTE AUTO 0.01 K/mm3 (0.00-0.10); IMMATURE GRAN PERCENT AUTO 0.1 % (<=1.0); LYMPHOCYTES ABSOLUTE AUTO 4.32 K/mm3 (1.18-3.74); LYMPHOCYTES PERCENT AUTO 51.2 % (19.3-51.7); MEAN CORPUSCULAR HEMOGLOBIN 28.3 pg (25.6-32.2); MEAN CORPUSCULAR HGB CONC 32.5 g/dl (32.2-35.5); MEAN CORPUSCULAR VOLUME 86.9 fl (79.4-94.8); MEAN PLATELET VOLUME 11.1 fl (9.4-12.3); MONOCYTES ABSOLUTE AUTO 0.82 K/mm3 (0.24-0.36); MONOCYTES PERCENT AUTO 9.7 % (4.7-12.5); NEUTROPHILS ABSOLUTE AUTO 3.12 K/mm3 (1.56-6.13); NEUTROPHILS PERCENT AUTO 37.1 % (34.0-71.1); PLATELET COUNT,PLT 245 K/mm3 (182-369); RED BLOOD CELL COUNT 4.81 M/mm3 (3.98-5.22); WHITE BLOOD CELL COUNT,WBC 8.43 K/mm3 (3.98-10.04)
[2022-09-05] MEDS ORDERED: Sodium Chloride 0.9% 50 ML ONE (20:26)
[2022-09-05 20:42] LABS: A/G RATIO 1.1 (1-2); ALBUMIN 3.8 g/dl (3.4-5.0); ANION GAP 14.2 (5-15); BILIRUBIN TOTAL 0.3 mg/dL (0.2-1.0); CALCIUM 9.5 mg/dL (8.5-10.1); CREATININE 0.9 mg/dL (0.55-1.02); EST CRCL DRUG DOSING (CG) 57.57 mL/min; POTASSIUM,K 4.2 mEq/L (3.5-5.1); PROTEIN TOTAL,TP 7.4 g/dl (6.4-8.2)
[2022-09-06 08:01] VITALS: BP 127/62
== END 2022-09-05 23:00 | disposition home or self-care (01) ==
LOC: JD.ED 19:40
DX: R51.9 Headache, unspecified (principal); E78.00 Pure hypercholesterolemia, unspecified; I10 Essential (primary) hypertension; J45.909 Unspecified asthma, uncomplicated; K21.9 Gastro-esophageal reflux disease without esophagitis; M19.90 Unspecified osteoarthritis, unspecified site; E11.9 Type 2 diabetes mellitus without complications; E66.9 Obesity, unspecified; Z68.28 Body mass index [BMI] 28.0-28.9, adult; Z86.16 Personal history of COVID-19; Z88.1 Allergy status to other antibiotic agents; Z88.0 Allergy status to penicillin; Z88.8 Allergy status to other drugs, medicaments and biological substances; Z79.82 Long term (current) use of aspirin; Z79.84 Long term (current) use of oral hypoglycemic drugs; Z79.899 Other long term (current) drug therapy
CPT/HCPCS: 36415; 70450; 80053; 85025; 96361; 96365; 96375; 99284; J1170; J1200; J1885; J2550; J3490; J7030

== ENCOUNTER 2022-09-06 09:04 | Emergency (ER) | payer MEDICAID ==
[2022-09-06 09:53] LABS: BASOPHILS ABSOLUTE AUTO 0.04 K/mm3 (0.01-0.08); BASOPHILS PERCENT AUTO 0.5 % (0.1-1.2); EOSINOPHILS ABSOLUTE AUTO 0.05 K/mm3 (0.04-0.36); EOSINOPHILS PERCENT AUTO 0.6 (0.7-5.8); HEMATOCRIT 39.2 % (34.1-44.9); HEMOGLOBIN 12.7 gm/dl (11.2-15.7); IMMATURE GRAN ABSOLUTE AUTO 0.01 K/mm3 (0.00-0.10); IMMATURE GRAN PERCENT AUTO 0.1 % (<=1.0); LYMPHOCYTES ABSOLUTE AUTO 2.36 K/mm3 (1.18-3.74); LYMPHOCYTES PERCENT AUTO 29.1 % (19.3-51.7); MEAN CORPUSCULAR HEMOGLOBIN 28.5 pg (25.6-32.2); MEAN CORPUSCULAR HGB CONC 32.4 g/dl (32.2-35.5); MEAN CORPUSCULAR VOLUME 87.9 fl (79.4-94.8); MEAN PLATELET VOLUME 10.9 fl (9.4-12.3); MONOCYTES PERCENT AUTO 8.6 % (4.7-12.5); NEUTROPHILS ABSOLUTE AUTO 4.94 K/mm3 (1.56-6.13); NEUTROPHILS PERCENT AUTO 61.1 % (34.0-71.1); PLATELET COUNT,PLT 209 K/mm3 (182-369); RED BLOOD CELL COUNT 4.46 M/mm3 (3.98-5.22)
[2022-09-06 10:23] LABS: A/G RATIO 1.1 (1-2); ALBUMIN 3.7 g/dl (3.4-5.0); ANION GAP 17.5 (5-15); BILIRUBIN TOTAL 0.3 mg/dL (0.2-1.0); CALCIUM 8.7 mg/dL (8.5-10.1); EST CRCL DRUG DOSING (CG) 51.73 mL/min; POTASSIUM,K 3.5 mEq/L (3.5-5.1); TSH 0.763 uIU/mL (0.358-3.74)
[2022-09-06 10:53] LABS: BARBITURATE SCREEN,URINE NEGATIVE (CUTOFF=200); BENZODIAZEPINES SCREEN,URINE PRESUMPTIVE POSITIVE (CUTOFF=150); BUPRENORPHINE SCREEN,URINE NEGATIVE (CUTOFF=10); METHADONE SCREEN, URINE NEGATIVE (CUTOFF=200); METHAMPHETAMINES SCREEN, URINE NEGATIVE (CUTOFF=500); OXYCODONE SCREEN,URINE NEGATIVE (CUT0FF=100); PROPOXYPHENE SCREEN,URINE NEGATIVE (CUTOFF=300); THC SCREEN,URINE 20 NG/ML NEGATIVE (CUTOFF=50)
[2022-09-06 10:57] LABS: AMPHETAMINES SCREEN, URINE NEGATIVE (CUTOFF=500)
[2022-09-06] MEDS ORDERED: Acetaminophen 325 MG Tab PO ONE (11:33)
[2022-09-06 11:40] LABS: CORONAVIRUS COVID-19 NAA NEGATIVE (NEGATIVE); INFLUENZA A NAA NEGATIVE (NEGATIVE)
[2022-09-06] MEDS ORDERED: Metoclopramide 10 MG/2 ML SDV IVPUSH ONE (12:19)
[2022-09-06] MEDS ORDERED: Ketorolac 15 MG/ML SDV IVPUSH ONE (12:20)
[2022-09-06] MEDS ORDERED: diphenhydrAMINE 50 MG/ML SDV IVPUSH ONE (12:20)
[2022-09-06 13:59] LABS: APPEARANCE,URINE CLEAR (Clear); BILIRUBIN,URINE NEGATIVE (Negative); COLOR,URINE YELLOW (Yellow); GLUCOSE,URINE 2+ (Negative); KETONES,URINE NEGATIVE (Negative); LEUKOCYTE ESTERASE,URINE NEGATIVE (Negative); NITRITE,URINE NEGATIVE (Negative); OCCULT BLOOD,URINE NEGATIVE (Negative); PH,URINE 5.5 (5.0-8.0); PROTEIN,URINE NEGATIVE (Negative); UROBILINOGEN,URINE 0.2 (0.2-1.0)
[2022-09-06] MEDS ORDERED: LORazepam 1 MG Tab PO ONE (15:19)
[2022-09-07 07:42] VITALS: BP 156/89; PULSE 86
== END 2022-09-07 09:11 ==
LOC: JD.ED 09:04
DX: F31.9 Bipolar disorder, unspecified (principal); E78.00 Pure hypercholesterolemia, unspecified; I10 Essential (primary) hypertension; J45.909 Unspecified asthma, uncomplicated; K21.9 Gastro-esophageal reflux disease without esophagitis; M19.90 Unspecified osteoarthritis, unspecified site; E11.9 Type 2 diabetes mellitus without complications; E66.9 Obesity, unspecified; Z88.0 Allergy status to penicillin; Z88.1 Allergy status to other antibiotic agents; Z88.8 Allergy status to other drugs, medicaments and biological substances; Z79.82 Long term (current) use of aspirin; Z79.84 Long term (current) use of oral hypoglycemic drugs; Z79.899 Other long term (current) drug therapy; Z86.16 Personal history of COVID-19; Z68.28 Body mass index [BMI] 28.0-28.9, adult
CPT/HCPCS: 0240U; 36415; 80053; 80143; 80179; 80306; 80307; 81003; 84443; 85025; 93005; 96374; 96375; 99285; A9270; J1200; J1885; J2765; 93010

== ENCOUNTER 2022-09-15 14:20 | Emergency (ER) | payer MEDICAID ==
[2022-09-15] MEDS ORDERED: valACYclovir 1,000 MG Tab PO ONE ×2 (15:22→17:00)
[2022-09-15 15:59] VITALS: BP 169/75; PULSE 76
== END 2022-09-15 16:10 | disposition home or self-care (01) ==
LOC: JD.ED 14:20
DX: B02.9 Zoster without complications (principal); I10 Essential (primary) hypertension; E78.00 Pure hypercholesterolemia, unspecified; J45.909 Unspecified asthma, uncomplicated; K21.9 Gastro-esophageal reflux disease without esophagitis; Z86.711 Personal history of pulmonary embolism; M19.90 Unspecified osteoarthritis, unspecified site; E11.9 Type 2 diabetes mellitus without complications; E66.9 Obesity, unspecified; Z68.27 Body mass index [BMI] 27.0-27.9, adult; Z86.16 Personal history of COVID-19; Z88.1 Allergy status to other antibiotic agents; Z88.8 Allergy status to other drugs, medicaments and biological substances; Z79.899 Other long term (current) drug therapy
CPT/HCPCS: 99282; A9270; 99283

== ENCOUNTER 2022-11-29 08:45 | Emergency (ER) | payer MEDICAID ==
[2022-11-29] MEDS ORDERED: diphenhydrAMINE 50 MG/ML SDV IVPUSH ONE (09:11)
[2022-11-29] MEDS ORDERED: Metoclopramide 10 MG/2 ML SDV IVPUSH ONE (09:12)
[2022-11-29] MEDS ORDERED: HYDROmorphone 1 MG/ML Syringe IVPUSH ONE (09:12)
[2022-11-29] MEDS ORDERED: Dexamethasone 10 MG/ML SDV IVPUSH ONE (09:13)
[2022-11-29] MEDS ORDERED: Dextrose 5%-0.9% NaCl 1,000 ML IV SCH (09:15)
[2022-11-29 11:09] VITALS: BP 146/70; PULSE 76
== END 2022-11-29 11:05 | disposition home or self-care (01) ==
LOC: JD.ED 08:45
DX: G43.909 Migraine, unspecified, not intractable, without status migrainosus (principal); E78.00 Pure hypercholesterolemia, unspecified; I10 Essential (primary) hypertension; J45.909 Unspecified asthma, uncomplicated; K21.9 Gastro-esophageal reflux disease without esophagitis; E11.9 Type 2 diabetes mellitus without complications; E66.9 Obesity, unspecified; Z68.29 Body mass index [BMI] 29.0-29.9, adult; Z86.16 Personal history of COVID-19; Z79.899 Other long term (current) drug therapy
CPT/HCPCS: 96374; 96375; 99283; J1100; J1170; J1200; J2765; 99284

== ENCOUNTER 2022-12-13 09:36 | Emergency (ER) | payer MEDICAID ==
[2022-12-13] MEDS ORDERED: HYDROmorphone 1 MG/ML Syringe IVPUSH ONE (10:03)
[2022-12-13] MEDS ORDERED: diphenhydrAMINE 50 MG/ML SDV IVPUSH ONE (10:03)
[2022-12-13] MEDS ORDERED: Metoclopramide 10 MG/2 ML SDV IVPUSH ONE (10:04)
[2022-12-13] MEDS ORDERED: Dexamethasone 10 MG/ML SDV IVPUSH ONE (10:05)
[2022-12-13] MEDS ORDERED: Dextrose 5%-Lactated Ringers 1,000 ML IV SCH (10:15)
[2022-12-13 11:20] VITALS: BP 141/81; PULSE 87
== END 2022-12-13 11:30 | disposition home or self-care (01) ==
LOC: JD.ED 09:36
DX: G24.01 Drug induced subacute dyskinesia (principal); G43.909 Migraine, unspecified, not intractable, without status migrainosus; E78.00 Pure hypercholesterolemia, unspecified; I10 Essential (primary) hypertension; J45.909 Unspecified asthma, uncomplicated; E11.9 Type 2 diabetes mellitus without complications; E66.9 Obesity, unspecified; Z88.1 Allergy status to other antibiotic agents; Z88.0 Allergy status to penicillin; Z88.8 Allergy status to other drugs, medicaments and biological substances; Z79.82 Long term (current) use of aspirin; Z79.84 Long term (current) use of oral hypoglycemic drugs; Z79.899 Other long term (current) drug therapy
CPT/HCPCS: 96374; 96375; 99283; J1100; J1170; J1200; J2765; 99284

== ENCOUNTER 2023-01-06 10:40 | Emergency (ER) | payer MEDICAID ==
[2023-01-06] MEDS ORDERED: Dexamethasone 4 MG/ML 5 ML MDV IV ONE (11:35)
[2023-01-06] MEDS ORDERED: Ondansetron 4 MG/2 ML SDV IVPUSH ONE (11:36)
[2023-01-06] MEDS ORDERED: diphenhydrAMINE 50 MG/ML SDV IVPUSH ONE (11:36)
[2023-01-06] MEDS ORDERED: Ketorolac 30 MG/ML SDV IVPUSH ONE (11:39)
[2023-01-06] MEDS ORDERED: Naloxone 0.4 MG/ML SDV IVPUSH PRN (11:39)
[2023-01-06] MEDS ORDERED: HYDROmorphone 0.5 MG/0.5 ML Syringe IVPUSH ONE (11:39)
[2023-01-06] MEDS ORDERED: Sodium Chloride 0.9% 1,000 ML IV ONE (11:40)
[2023-01-06 13:55] VITALS: BP 152/88; PULSE 82
== END 2023-01-06 13:50 | disposition home or self-care (01) ==
LOC: JD.ED 10:40
DX: G43.909 Migraine, unspecified, not intractable, without status migrainosus (principal); I10 Essential (primary) hypertension; E78.00 Pure hypercholesterolemia, unspecified; J45.909 Unspecified asthma, uncomplicated; Z86.16 Personal history of COVID-19; Z79.82 Long term (current) use of aspirin; Z79.84 Long term (current) use of oral hypoglycemic drugs; Z79.899 Other long term (current) drug therapy; Z88.1 Allergy status to other antibiotic agents; Z88.8 Allergy status to other drugs, medicaments and biological substances; Z88.0 Allergy status to penicillin
CPT/HCPCS: 96361; 96374; 96375; 99283; J1100; J1170; J1200; J1885; J2405; J7030; 99284

== ENCOUNTER 2023-02-01 11:36 | Emergency (ER) | payer MEDICAID ==
[2023-02-01] MEDS ORDERED: Metoclopramide 10 MG/2 ML SDV IVPUSH ONE (12:03)
[2023-02-01] MEDS ORDERED: Lactated Ringers 1,000 ML IV ONE (12:03)
[2023-02-01] MEDS ORDERED: Dexamethasone 10 MG/ML SDV IVPUSH ONE (12:05)
[2023-02-01] MEDS ORDERED: HYDROmorphone 0.5 MG/0.5 ML Syringe IVPUSH ONE (12:06)
[2023-02-01] MEDS ORDERED: diphenhydrAMINE 50 MG/ML SDV IVPUSH ONE (12:06)
[2023-02-01] MEDS ORDERED: Naloxone 0.4 MG/ML SDV IVPUSH PRN (12:06)
[2023-02-01 17:10] VITALS: BP 148/76; PULSE 84
== END 2023-02-01 14:32 | disposition home or self-care (01) ==
LOC: JD.ED 11:36
DX: G43.909 Migraine, unspecified, not intractable, without status migrainosus (principal); E78.00 Pure hypercholesterolemia, unspecified; I10 Essential (primary) hypertension; J45.909 Unspecified asthma, uncomplicated; K21.9 Gastro-esophageal reflux disease without esophagitis; E11.9 Type 2 diabetes mellitus without complications; E66.9 Obesity, unspecified; Z68.28 Body mass index [BMI] 28.0-28.9, adult; Z86.16 Personal history of COVID-19; Z79.82 Long term (current) use of aspirin; Z79.899 Other long term (current) drug therapy; Z79.84 Long term (current) use of oral hypoglycemic drugs; Z88.0 Allergy status to penicillin; Z88.1 Allergy status to other antibiotic agents; Z88.5 Allergy status to narcotic agent; Z88.6 Allergy status to analgesic agent; Z88.8 Allergy status to other drugs, medicaments and biological substances
CPT/HCPCS: 96361; 96374; 96375; 99283; J1100; J1170; J1200; J2765; J7120

== ENCOUNTER 2023-03-07 10:15 | Emergency (ER) | payer MEDICAID ==
[2023-03-07] MEDS ORDERED: diphenhydrAMINE 50 MG/ML SDV IVPUSH ONE (11:11)
[2023-03-07] MEDS ORDERED: Dexamethasone 10 MG/ML SDV IVPUSH ONE (11:11)
[2023-03-07] MEDS ORDERED: Ondansetron 4 MG/2 ML SDV IVPUSH ONE (11:12)
[2023-03-07] MEDS ORDERED: Ketorolac 30 MG/ML SDV IVPUSH ONE (11:15)
[2023-03-07] MEDS ORDERED: Lactated Ringers 1,000 ML IV SCH (11:15)
[2023-03-07] MEDS ORDERED: Morphine 2 MG/ML SYRINGE IM ONE (12:57)
[2023-03-07] MEDS ORDERED: Naloxone 0.4 MG/ML SDV IVPUSH PRN (12:57)
[2023-03-07 14:31] VITALS: BP 164/79; PULSE 82
== END 2023-03-07 14:28 | disposition home or self-care (01) ==
LOC: JD.ED 10:15
DX: G43.909 Migraine, unspecified, not intractable, without status migrainosus (principal); E78.00 Pure hypercholesterolemia, unspecified; I10 Essential (primary) hypertension; J45.909 Unspecified asthma, uncomplicated; K21.9 Gastro-esophageal reflux disease without esophagitis; M19.90 Unspecified osteoarthritis, unspecified site; E11.9 Type 2 diabetes mellitus without complications; E66.9 Obesity, unspecified; Z68.28 Body mass index [BMI] 28.0-28.9, adult; Z86.16 Personal history of COVID-19; Z88.1 Allergy status to other antibiotic agents; Z88.0 Allergy status to penicillin; Z88.8 Allergy status to other drugs, medicaments and biological substances; Z79.82 Long term (current) use of aspirin; Z79.899 Other long term (current) drug therapy; Z79.84 Long term (current) use of oral hypoglycemic drugs
CPT/HCPCS: 96361; 96372; 96374; 96375; 99283; J1100; J1200; J1885; J2270; J2405; J7120; 99284

== ENCOUNTER 2023-04-03 11:31 | Emergency (ER) | payer MEDICAID ==
[2023-04-03] MEDS ORDERED: Ondansetron 4 MG/2 ML SDV IVPUSH ONE (11:56)
[2023-04-03] MEDS ORDERED: Ketorolac 30 MG/ML SDV IVPUSH ONE (11:56)
[2023-04-03] MEDS ORDERED: Sodium Chloride 0.9% 1,000 ML IV STA (11:56)
[2023-04-03] MEDS ORDERED: HYDROmorphone 0.5 MG/0.5 ML Syringe IVPUSH ONE (11:56)
[2023-04-03] MEDS ORDERED: diphenhydrAMINE 50 MG/ML SDV IVPUSH ONE (11:56)
[2023-04-03] MEDS ORDERED: Dexamethasone 10 MG/ML SDV IVPUSH ONE (11:57)
[2023-04-03] MEDS ORDERED: Sodium Chloride 0.9% 10 ML Syringe FLUSH PRN (11:57)
[2023-04-03 13:52] VITALS: BP 126/68; PULSE 72
== END 2023-04-03 13:49 | disposition home or self-care (01) ==
LOC: JD.ED 11:31
DX: G43.909 Migraine, unspecified, not intractable, without status migrainosus (principal); I10 Essential (primary) hypertension; E78.00 Pure hypercholesterolemia, unspecified; K21.9 Gastro-esophageal reflux disease without esophagitis; E11.9 Type 2 diabetes mellitus without complications; E66.9 Obesity, unspecified; Z90.49 Acquired absence of other specified parts of digestive tract; Z90.710 Acquired absence of both cervix and uterus; Z79.84 Long term (current) use of oral hypoglycemic drugs; Z79.82 Long term (current) use of aspirin; Z79.899 Other long term (current) drug therapy; Z88.8 Allergy status to other drugs, medicaments and biological substances; Z88.1 Allergy status to other antibiotic agents; Z88.0 Allergy status to penicillin; Z88.5 Allergy status to narcotic agent; Z91.048 Other nonmedicinal substance allergy status; Z68.27 Body mass index [BMI] 27.0-27.9, adult
CPT/HCPCS: 96361; 96374; 96375; 99283; J1100; J1170; J1200; J1885; J2405; J3490; J7030

== ENCOUNTER 2023-04-05 10:31 | Emergency (ER) | payer MEDICAID ==
[2023-04-05] MEDS ORDERED: Sodium Chloride 0.9% 10 ML Syringe FLUSH PRN (11:06)
[2023-04-05] MEDS ORDERED: Ketorolac 30 MG/ML SDV IVPUSH ONE (11:06)
[2023-04-05] MEDS ORDERED: Metoclopramide 10 MG/2 ML SDV IVPUSH ONE (11:06)
[2023-04-05] MEDS ORDERED: Sodium Chloride 0.9% 1,000 ML IV SCH (11:15)
[2023-04-05 12:52] VITALS: BP 155/79; PULSE 70
== END 2023-04-05 12:52 | disposition home or self-care (01) ==
LOC: JD.ED 10:31
DX: G43.909 Migraine, unspecified, not intractable, without status migrainosus (principal); I10 Essential (primary) hypertension; E78.00 Pure hypercholesterolemia, unspecified; K21.9 Gastro-esophageal reflux disease without esophagitis; E11.9 Type 2 diabetes mellitus without complications; Z86.16 Personal history of COVID-19; Z90.710 Acquired absence of both cervix and uterus; J45.909 Unspecified asthma, uncomplicated; Z79.899 Other long term (current) drug therapy; Z79.82 Long term (current) use of aspirin; Z79.84 Long term (current) use of oral hypoglycemic drugs; Z88.0 Allergy status to penicillin; Z88.1 Allergy status to other antibiotic agents; Z88.8 Allergy status to other drugs, medicaments and biological substances; Z91.048 Other nonmedicinal substance allergy status; Z68.28 Body mass index [BMI] 28.0-28.9, adult
CPT/HCPCS: 96361; 96365; 96375; 99283; J1885; J2765; J3475; J3490; J7030; 99284

== ENCOUNTER 2023-06-01 17:26 | Emergency (ER) | payer MEDICAID, OTHER ==
[2023-06-01 23:24] VITALS: BP 144/85; PULSE 101
== END 2023-06-01 19:43 | disposition home or self-care (01) ==
LOC: JD.ED 17:26
DX: Z65.8 Other specified problems related to psychosocial circumstances (principal); I10 Essential (primary) hypertension; J45.909 Unspecified asthma, uncomplicated; K21.9 Gastro-esophageal reflux disease without esophagitis; E11.9 Type 2 diabetes mellitus without complications; E66.9 Obesity, unspecified; E78.00 Pure hypercholesterolemia, unspecified; Z79.82 Long term (current) use of aspirin; Z79.899 Other long term (current) drug therapy; Z88.8 Allergy status to other drugs, medicaments and biological substances; Z88.1 Allergy status to other antibiotic agents; Z88.0 Allergy status to penicillin; Z68.26 Body mass index [BMI] 26.0-26.9, adult
CPT/HCPCS: 99284

== ENCOUNTER 2023-07-11 12:16 | Emergency (ER) | payer MEDICAID ==
[2023-07-11] MEDS: Dextrose 5%-0.9% NaCl 1,000 ML IV SCH (12:44)
[2023-07-11] MEDS: Dexamethasone 10 MG/ML SDV IVPUSH ONE (12:44)
[2023-07-11] MEDS: diphenhydrAMINE 50 MG/ML SDV IVPUSH ONE (12:44)
[2023-07-11] MEDS: Metoclopramide 10 MG/2 ML SDV IVPUSH ONE (12:44)
[2023-07-11] MEDS: HYDROmorphone 1 MG/ML Syringe IVPUSH ONE (13:18)
[2023-07-11 13:32] VITALS: BP 147/83; PULSE 86
== END 2023-07-11 13:37 | disposition home or self-care (01) ==
LOC: JD.ED 12:16
DX: G43.909 Migraine, unspecified, not intractable, without status migrainosus (principal); R11.2 Nausea with vomiting, unspecified; E11.9 Type 2 diabetes mellitus without complications; E66.9 Obesity, unspecified; E78.00 Pure hypercholesterolemia, unspecified; I10 Essential (primary) hypertension; J45.909 Unspecified asthma, uncomplicated; K21.9 Gastro-esophageal reflux disease without esophagitis; M19.90 Unspecified osteoarthritis, unspecified site; Z86.16 Personal history of COVID-19; Z79.84 Long term (current) use of oral hypoglycemic drugs; Z79.899 Other long term (current) drug therapy; Z79.82 Long term (current) use of aspirin; Z88.1 Allergy status to other antibiotic agents; Z88.0 Allergy status to penicillin; Z88.8 Allergy status to other drugs, medicaments and biological substances
CPT/HCPCS: 96361; 96374; 96375; 99283; J1100; J1170; J1200; J2765; J7042; 99284

== ENCOUNTER 2023-09-01 10:58 | Emergency (ER) | payer MEDICAID, OTHER ==
[2023-09-01] MEDS: Sodium Chloride 0.9% 1,000 ML IV STA (12:01)
[2023-09-01] MEDS: Metoclopramide 10 MG/2 ML SDV IVPUSH ONE (12:02)
[2023-09-01] MEDS: HYDROmorphone 0.5 MG/0.5 ML Syringe IVPUSH ONE (12:02)
[2023-09-01] MEDS: Ketorolac 30 MG/ML SDV IVPUSH ONE (12:03)
[2023-09-01] MEDS: diphenhydrAMINE 50 MG/ML SDV IVPUSH ONE (12:03)
[2023-09-01] MEDS: Dexamethasone 4 MG/ML SDV IVPUSH ONE (12:04)
[2023-09-01 19:50] VITALS: BP 126/72; PULSE 70
== END 2023-09-01 14:12 | disposition home or self-care (01) ==
LOC: JD.ED 10:58
DX: G43.909 Migraine, unspecified, not intractable, without status migrainosus (principal); I10 Essential (primary) hypertension; K21.9 Gastro-esophageal reflux disease without esophagitis; E78.00 Pure hypercholesterolemia, unspecified; E66.9 Obesity, unspecified; E11.9 Type 2 diabetes mellitus without complications; Z68.30 Body mass index [BMI] 30.0-30.9, adult; Z88.0 Allergy status to penicillin; Z88.8 Allergy status to other drugs, medicaments and biological substances; Z79.82 Long term (current) use of aspirin; Z79.84 Long term (current) use of oral hypoglycemic drugs; Z79.899 Other long term (current) drug therapy; Z86.16 Personal history of COVID-19; Z90.49 Acquired absence of other specified parts of digestive tract; Z90.710 Acquired absence of both cervix and uterus
CPT/HCPCS: 96361; 96374; 96375; 99283; J1100; J1170; J1200; J1885; J2765; J7030; 99284

== ENCOUNTER 2023-09-03 18:22 | Emergency (ER) | payer MEDICAID ==
[2023-09-03] MEDS: diphenhydrAMINE 50 MG/ML SDV IVPUSH ONE (19:01)
[2023-09-03] MEDS: Metoclopramide 10 MG/2 ML SDV IVPUSH ONE (19:01)
[2023-09-03] MEDS: Ketorolac 30 MG/ML SDV IVPUSH ONE (19:01)
[2023-09-03] MEDS: Dexamethasone 10 MG/ML SDV IVPUSH ONE (19:01)
[2023-09-03] MEDS: Magnesium Sulfate/Water 2 GM in Premix Bag 1 BAG IV ONE (19:02)
[2023-09-03] MEDS: Sodium Chloride 0.9% 1,000 ML IV SCH (19:02)
[2023-09-03 20:56] VITALS: BP 108/91; PULSE 60
== END 2023-09-03 20:21 | disposition home or self-care (01) ==
LOC: JD.ED 18:22
DX: G44.209 Tension-type headache, unspecified, not intractable (principal); I10 Essential (primary) hypertension; E78.00 Pure hypercholesterolemia, unspecified; K21.9 Gastro-esophageal reflux disease without esophagitis; J45.909 Unspecified asthma, uncomplicated; E11.9 Type 2 diabetes mellitus without complications; E66.9 Obesity, unspecified; Z86.16 Personal history of COVID-19; Z90.49 Acquired absence of other specified parts of digestive tract; Z79.899 Other long term (current) drug therapy; Z79.84 Long term (current) use of oral hypoglycemic drugs; Z79.82 Long term (current) use of aspirin; Z88.0 Allergy status to penicillin; Z88.1 Allergy status to other antibiotic agents; Z88.2 Allergy status to sulfonamides; Z88.5 Allergy status to narcotic agent; Z88.8 Allergy status to other drugs, medicaments and biological substances; Z68.31 Body mass index [BMI] 31.0-31.9, adult
CPT/HCPCS: 96365; 96375; 99283; J1100; J1200; J1885; J2765; J3475; J7030; 99284

== ENCOUNTER 2023-09-15 15:06 | Emergency (ER) | payer MEDICAID ==
[2023-09-15] MEDS: Metoclopramide 10 MG/2 ML SDV IVPUSH ONE (16:50)
[2023-09-15] MEDS: HYDROmorphone 0.5 MG/0.5 ML Syringe IVPUSH ONE (16:51)
[2023-09-15] MEDS: Ketorolac 30 MG/ML SDV IVPUSH ONE (16:51)
[2023-09-15] MEDS: diphenhydrAMINE 50 MG/ML SDV IVPUSH ONE (16:51)
[2023-09-15] MEDS: Sodium Chloride 0.9% 10 ML Syringe FLUSH PRN (16:51)
[2023-09-15 19:54] VITALS: BP 158/85; PULSE 86
== END 2023-09-15 17:47 | disposition home or self-care (01) ==
LOC: JD.ED 15:06
DX: G43.909 Migraine, unspecified, not intractable, without status migrainosus (principal); I10 Essential (primary) hypertension; E78.00 Pure hypercholesterolemia, unspecified; J45.909 Unspecified asthma, uncomplicated; K21.9 Gastro-esophageal reflux disease without esophagitis; Z88.1 Allergy status to other antibiotic agents; Z88.0 Allergy status to penicillin; Z88.6 Allergy status to analgesic agent; Z88.8 Allergy status to other drugs, medicaments and biological substances; Z79.82 Long term (current) use of aspirin; Z79.84 Long term (current) use of oral hypoglycemic drugs; Z79.899 Other long term (current) drug therapy; Z90.49 Acquired absence of other specified parts of digestive tract; Z90.710 Acquired absence of both cervix and uterus
CPT/HCPCS: 96374; 96375; 99283; J1170; J1200; J1885; J2765; J3490

== ENCOUNTER 2023-10-03 14:21 | Emergency (ER) | payer MEDICAID ==
[2023-10-03] MEDS: diphenhydrAMINE 50 MG/ML SDV IVPUSH ONE (14:58)
[2023-10-03] MEDS: Sodium Chloride 0.9% 10 ML Syringe FLUSH PRN (14:58)
[2023-10-03] MEDS: HYDROmorphone 0.5 MG/0.5 ML Syringe IVPUSH ONE (14:58)
[2023-10-03] MEDS: Metoclopramide 10 MG/2 ML SDV IVPUSH ONE (14:58)
[2023-10-03] MEDS: Ketorolac 30 MG/ML SDV IVPUSH ONE (14:58)
[2023-10-03 16:27] VITALS: BP 124/70; PULSE 59
== END 2023-10-03 16:20 | disposition home or self-care (01) ==
LOC: JD.ED 14:21
DX: G43.909 Migraine, unspecified, not intractable, without status migrainosus (principal); I10 Essential (primary) hypertension; J45.909 Unspecified asthma, uncomplicated; E11.9 Type 2 diabetes mellitus without complications; E66.9 Obesity, unspecified; Z86.16 Personal history of COVID-19; Z90.49 Acquired absence of other specified parts of digestive tract; Z90.710 Acquired absence of both cervix and uterus; E78.00 Pure hypercholesterolemia, unspecified; M19.90 Unspecified osteoarthritis, unspecified site; Z79.82 Long term (current) use of aspirin; Z79.84 Long term (current) use of oral hypoglycemic drugs; Z79.899 Other long term (current) drug therapy; Z88.0 Allergy status to penicillin; Z88.8 Allergy status to other drugs, medicaments and biological substances; Z68.30 Body mass index [BMI] 30.0-30.9, adult
CPT/HCPCS: 96374; 96375; 99283; J1170; J1200; J1885; J2765; J3490; 99284

== ENCOUNTER 2023-10-13 08:40 | Emergency (ER) | payer MEDICAID ==
[2023-10-13] MEDS: Sodium Chloride 0.9% 10 ML Syringe FLUSH PRN (09:40)
[2023-10-13] MEDS: Ketorolac 30 MG/ML SDV IVPUSH ONE (09:41)
[2023-10-13] MEDS: Metoclopramide 10 MG/2 ML SDV IVPUSH ONE (09:42)
[2023-10-13] MEDS: diphenhydrAMINE 50 MG/ML SDV IVPUSH ONE (09:46)
[2023-10-13] MEDS: HYDROmorphone 0.5 MG/0.5 ML Syringe IVPUSH ONE ×2 (09:48→10:59)
[2023-10-13 12:51] VITALS: BP 100/58; PULSE 55
== END 2023-10-13 13:03 | disposition home or self-care (01) ==
LOC: JD.ED 08:40
DX: G43.909 Migraine, unspecified, not intractable, without status migrainosus (principal); I10 Essential (primary) hypertension; E78.00 Pure hypercholesterolemia, unspecified; K21.9 Gastro-esophageal reflux disease without esophagitis; E11.9 Type 2 diabetes mellitus without complications; E66.9 Obesity, unspecified; Z90.49 Acquired absence of other specified parts of digestive tract; Z86.16 Personal history of COVID-19; Z90.710 Acquired absence of both cervix and uterus; Z79.899 Other long term (current) drug therapy; Z79.82 Long term (current) use of aspirin; Z79.84 Long term (current) use of oral hypoglycemic drugs; Z68.29 Body mass index [BMI] 29.0-29.9, adult; Z88.8 Allergy status to other drugs, medicaments and biological substances; Z88.0 Allergy status to penicillin; Z88.1 Allergy status to other antibiotic agents
CPT/HCPCS: 96374; 96375; 96376; 99283; J1170; J1200; J1885; J2765; J3490

== ENCOUNTER 2023-10-15 09:14 | Emergency (ER) | payer MEDICAID ==
[2023-10-15] MEDS: Sodium Chloride 0.9% 1,000 ML IV SCH (09:42)
[2023-10-15] MEDS: Ketorolac 30 MG/ML SDV IVPUSH ONE (09:43)
[2023-10-15] MEDS: Metoclopramide 10 MG/2 ML SDV IVPUSH ONE (09:43)
[2023-10-15] MEDS: Sodium Chloride 0.9% 10 ML Syringe FLUSH PRN (09:43)
[2023-10-15] MEDS: diphenhydrAMINE 50 MG/ML SDV IVPUSH ONE (09:43)
[2023-10-15] MEDS: HYDROmorphone 0.5 MG/0.5 ML Syringe IVPUSH ONE (11:34)
[2023-10-15 12:58] VITALS: BP 120/72; PULSE 59
== END 2023-10-15 11:53 | disposition home or self-care (01) ==
LOC: JD.ED 09:14
DX: G43.909 Migraine, unspecified, not intractable, without status migrainosus (principal); I10 Essential (primary) hypertension; E78.00 Pure hypercholesterolemia, unspecified; J45.909 Unspecified asthma, uncomplicated; E11.9 Type 2 diabetes mellitus without complications; E66.9 Obesity, unspecified; K21.9 Gastro-esophageal reflux disease without esophagitis; Z79.82 Long term (current) use of aspirin; Z79.84 Long term (current) use of oral hypoglycemic drugs; Z79.899 Other long term (current) drug therapy; Z88.8 Allergy status to other drugs, medicaments and biological substances; Z88.0 Allergy status to penicillin; Z88.1 Allergy status to other antibiotic agents; Z68.29 Body mass index [BMI] 29.0-29.9, adult
CPT/HCPCS: 96361; 96374; 96375; 99283; J1170; J1200; J1885; J2765; J3490; J7030; 99284

== ENCOUNTER 2023-11-25 11:28 | Emergency (ER) | payer MEDICAID ==
[2023-11-25] MEDS: HYDROmorphone 0.5 MG/0.5 ML Syringe IVPUSH ONE (12:25)
[2023-11-25] MEDS: Sodium Chloride 0.9% 1,000 ML IV STA (12:25)
[2023-11-25] MEDS: Ondansetron 4 MG/2 ML SDV IVPUSH ONE (12:25)
[2023-11-25] MEDS: Sodium Chloride 0.9% 10 ML Syringe FLUSH PRN (12:26)
[2023-11-25] MEDS: diphenhydrAMINE 50 MG/ML SDV IVPUSH ONE (12:26)
[2023-11-25] MEDS: Ketorolac 30 MG/ML SDV IVPUSH ONE (12:26)
[2023-11-25 12:47] LABS: BASOPHILS PERCENT AUTO 0.7 % (0.0-1.0); EOSINOPHILS ABSOLUTE AUTO 0.1 K/mm3 (0.0-0.4); EOSINOPHILS PERCENT AUTO 1.8 % (0.0-6.0); HEMATOCRIT 42.9 % (37.0-47.0); HEMOGLOBIN 13.7 gm/dl (12.0-16.0); IMMATURE GRAN ABSOLUTE AUTO 0.02 K/mm3 (0.00-0.05); IMMATURE GRAN PERCENT AUTO 0.3 % (0.0-0.4); LYMPHOCYTES ABSOLUTE AUTO 1.5 K/mm3 (1.0-4.8); LYMPHOCYTES PERCENT AUTO 25.6 % (24.0-44.0); MEAN CORPUSCULAR HGB CONC 31.9 g/dl (32.0-36.0); MEAN CORPUSCULAR VOLUME 84.4 fl (83.0-99.0); MEAN PLATELET VOLUME 11.6 fl (9.4-12.3); MONOCYTES PERCENT AUTO 15.8 % (0.0-8.0); NEUTROPHILS ABSOLUTE AUTO 3.4 K/mm3 (1.8-7.7); NEUTROPHILS PERCENT AUTO 55.8 % (41.0-71.0); PLATELET COUNT,PLT 182 K/mm3 (150-400); RED BLOOD CELL COUNT 5.08 M/mm3 (4.10-5.30); WHITE BLOOD CELL COUNT,WBC 6.02 K/mm3 (3.9-11.3)
[2023-11-25 13:09] LABS: A/G RATIO 1.1 (1-2); ALBUMIN 3.9 g/dl (3.4-5.0); ANION GAP 13.4 (5-15); BILIRUBIN TOTAL 0.4 mg/dL (0.2-1.0); CALCIUM 9.6 mg/dL (8.5-10.1); CREATININE 0.9 mg/dL (0.55-1.02); EST CRCL DRUG DOSING (CG) 56.82 mL/min; POTASSIUM,K 4.4 mEq/L (3.5-5.1); PROTEIN TOTAL,TP 7.6 g/dl (6.4-8.2)
[2023-11-25 14:15] VITALS: BP 129/74; PULSE 88
== END 2023-11-25 14:10 | disposition home or self-care (01) ==
LOC: JD.ED 11:28
DX: G43.909 Migraine, unspecified, not intractable, without status migrainosus (principal); I10 Essential (primary) hypertension; E78.00 Pure hypercholesterolemia, unspecified; K21.9 Gastro-esophageal reflux disease without esophagitis; E11.9 Type 2 diabetes mellitus without complications; E66.9 Obesity, unspecified; Z86.16 Personal history of COVID-19; Z90.49 Acquired absence of other specified parts of digestive tract; Z90.710 Acquired absence of both cervix and uterus; Z79.899 Other long term (current) drug therapy; Z79.82 Long term (current) use of aspirin; Z79.84 Long term (current) use of oral hypoglycemic drugs; Z79.51 Long term (current) use of inhaled steroids; Z88.1 Allergy status to other antibiotic agents; Z88.8 Allergy status to other drugs, medicaments and biological substances; Z88.0 Allergy status to penicillin; Z68.30 Body mass index [BMI] 30.0-30.9, adult
CPT/HCPCS: 36415; 80053; 85025; 96361; 96374; 96375; 99284; J1170; J1200; J1885; J2405; J3490; J7030

== ENCOUNTER 2023-12-23 10:16 | Emergency (ER) | payer MEDICAID ==
[2023-12-23] MEDS: Metoclopramide 10 MG/2 ML SDV IVPUSH ONE (11:23)
[2023-12-23] MEDS: Sodium Chloride 0.9% 1,000 ML IV ONE (11:23)
[2023-12-23] MEDS: Ketorolac 30 MG/ML SDV IVPUSH ONE (11:24)
[2023-12-23] MEDS: diphenhydrAMINE 50 MG/ML SDV IVPUSH ONE (11:24)
[2023-12-23] MEDS: Sodium Chloride 0.9% 10 ML Syringe FLUSH PRN (11:25)
[2023-12-23] MEDS: HYDROmorphone 0.5 MG/0.5 ML Syringe IVPUSH ONE (12:13)
[2023-12-23 13:01] VITALS: BP 115/73; PULSE 66
== END 2023-12-23 13:00 | disposition home or self-care (01) ==
LOC: JD.ED 10:16
DX: G43.909 Migraine, unspecified, not intractable, without status migrainosus (principal); I10 Essential (primary) hypertension; E78.00 Pure hypercholesterolemia, unspecified; K21.9 Gastro-esophageal reflux disease without esophagitis; E11.9 Type 2 diabetes mellitus without complications; E66.9 Obesity, unspecified; Z86.16 Personal history of COVID-19; Z90.49 Acquired absence of other specified parts of digestive tract; Z90.710 Acquired absence of both cervix and uterus; Z79.899 Other long term (current) drug therapy; Z79.51 Long term (current) use of inhaled steroids; Z79.84 Long term (current) use of oral hypoglycemic drugs; Z79.82 Long term (current) use of aspirin; Z88.0 Allergy status to penicillin; Z88.1 Allergy status to other antibiotic agents; Z88.8 Allergy status to other drugs, medicaments and biological substances; Z68.30 Body mass index [BMI] 30.0-30.9, adult
CPT/HCPCS: 96361; 96374; 96375; 99283; J1170; J1200; J1885; J2765; J3490; J7030; 99284

== ENCOUNTER 2024-02-04 18:14 | Emergency (ER) | payer MEDICAID ==
[2024-02-04] MEDS ORDERED: Sodium Chloride 0.9% 10 ML Syringe FLUSH PRN (18:35)
[2024-02-04 19:11] LABS: BASOPHILS ABSOLUTE AUTO 0.1 K/mm3 (0.0-0.2); BASOPHILS PERCENT AUTO 0.9 % (0.0-1.0); EOSINOPHILS ABSOLUTE AUTO 0.2 K/mm3 (0.0-0.4); HEMATOCRIT 41.4 % (37.0-47.0); HEMOGLOBIN 13.3 gm/dl (12.0-16.0); IMMATURE GRAN ABSOLUTE AUTO 0.02 K/mm3 (0.00-0.05); IMMATURE GRAN PERCENT AUTO 0.2 % (0.0-0.4); MEAN CORPUSCULAR HEMOGLOBIN 26.8 pg (28.0-32.0); MEAN CORPUSCULAR HGB CONC 32.1 g/dl (32.0-36.0); MEAN CORPUSCULAR VOLUME 83.3 fl (83.0-99.0); MEAN PLATELET VOLUME 11.8 fl (9.4-12.3); MONOCYTES ABSOLUTE AUTO 0.9 K/mm3 (0.0-0.8); MONOCYTES PERCENT AUTO 11.6 % (0.0-8.0); NEUTROPHILS ABSOLUTE AUTO 3.9 K/mm3 (1.8-7.7); NEUTROPHILS PERCENT AUTO 48.3 % (41.0-71.0); PLATELET COUNT,PLT 216 K/mm3 (150-400); RED BLOOD CELL COUNT 4.97 M/mm3 (4.10-5.30); WHITE BLOOD CELL COUNT,WBC 8.05 K/mm3 (3.9-11.3)
[2024-02-04 19:36] LABS: A/G RATIO 1.1 (1-2); ANION GAP 15.4 (5-15); BILIRUBIN TOTAL 0.3 mg/dL (0.2-1.0); BUN/CREATININE RATIO 22.2 (14-18); CALCIUM 9.3 mg/dL (8.5-10.1); CREATININE 0.9 mg/dL (0.55-1.02); EST CRCL DRUG DOSING (CG) 56.82 mL/min; POTASSIUM,K 4.4 mEq/L (3.5-5.1); PROTEIN TOTAL,TP 7.8 g/dl (6.4-8.2)
[2024-02-04] MEDS: LORazepam 0.5 MG Tab PO ONE (20:04)
[2024-02-04 20:52] VITALS: BP 134/78; PULSE 64
== END 2024-02-04 20:50 | disposition other institution (70) ==
LOC: JD.ED 18:14
DX: F41.9 Anxiety disorder, unspecified (principal); I10 Essential (primary) hypertension; E78.00 Pure hypercholesterolemia, unspecified; J45.909 Unspecified asthma, uncomplicated; K21.9 Gastro-esophageal reflux disease without esophagitis; M19.90 Unspecified osteoarthritis, unspecified site; E11.9 Type 2 diabetes mellitus without complications; E66.9 Obesity, unspecified; Z86.16 Personal history of COVID-19; Z87.891 Personal history of nicotine dependence; Z79.82 Long term (current) use of aspirin; Z79.84 Long term (current) use of oral hypoglycemic drugs; Z79.899 Other long term (current) drug therapy; Z88.1 Allergy status to other antibiotic agents; Z88.8 Allergy status to other drugs, medicaments and biological substances; Z88.0 Allergy status to penicillin
CPT/HCPCS: 36415; 71045; 71045-26; 80053; 83690; 84484; 85025; 93005; 93010; 99284; A9270-GY

== ENCOUNTER 2024-04-02 17:29 | Emergency (ER) | payer OTHER, MEDICAID ==
[2024-04-02] MEDS: Ketorolac 60 MG/2 ML SDV IM ONE (18:31)
[2024-04-02 20:00] VITALS: BP 125/85; PULSE 80
== END 2024-04-02 20:00 | disposition home or self-care (01) ==
LOC: JD.ED 17:29
DX: M16.12 Unilateral primary osteoarthritis, left hip (principal); I10 Essential (primary) hypertension; J45.909 Unspecified asthma, uncomplicated; E78.00 Pure hypercholesterolemia, unspecified; K21.9 Gastro-esophageal reflux disease without esophagitis; E11.9 Type 2 diabetes mellitus without complications; M19.90 Unspecified osteoarthritis, unspecified site; E66.9 Obesity, unspecified; Z86.16 Personal history of COVID-19; Z96.652 Presence of left artificial knee joint; Z90.49 Acquired absence of other specified parts of digestive tract; Z90.710 Acquired absence of both cervix and uterus; Z88.0 Allergy status to penicillin; Z88.1 Allergy status to other antibiotic agents; Z88.8 Allergy status to other drugs, medicaments and biological substances; Z79.82 Long term (current) use of aspirin; Z79.84 Long term (current) use of oral hypoglycemic drugs; Z79.899 Other long term (current) drug therapy; Z68.28 Body mass index [BMI] 28.0-28.9, adult; W19.XXXA Unspecified fall, initial encounter
CPT/HCPCS: 73502; 73560; 96372; 99283; J1885

== ENCOUNTER 2024-07-20 14:00 | Emergency (ER) | payer OTHER ==
[2024-07-20 14:26] VITALS: BP 157/81; PULSE 69
[2024-07-20] MEDS: traMADol 50 MG Tab PO ONE (15:29)
== END 2024-07-20 15:53 | disposition home or self-care (01) ==
LOC: JD.ED 14:00
DX: M54.42 Lumbago with sciatica, left side (principal); I10 Essential (primary) hypertension; E11.9 Type 2 diabetes mellitus without complications; E66.9 Obesity, unspecified; E78.00 Pure hypercholesterolemia, unspecified; K21.9 Gastro-esophageal reflux disease without esophagitis; Z88.1 Allergy status to other antibiotic agents; Z88.8 Allergy status to other drugs, medicaments and biological substances; Z88.0 Allergy status to penicillin; Z79.899 Other long term (current) drug therapy; Z79.84 Long term (current) use of oral hypoglycemic drugs; Z79.82 Long term (current) use of aspirin; Z86.16 Personal history of COVID-19; Z90.49 Acquired absence of other specified parts of digestive tract; Z90.710 Acquired absence of both cervix and uterus; Z68.29 Body mass index [BMI] 29.0-29.9, adult
CPT/HCPCS: 99283; A9270

== ENCOUNTER 2024-10-05 16:19 | Emergency (ER) | payer MEDICAID, MEDICARE ==
[2024-10-05] MEDS: Ondansetron 4 MG/2 ML SDV IVPUSH ONE (18:18)
[2024-10-05] MEDS: diphenhydrAMINE 50 MG/ML SDV IVPUSH ONE (18:19)
[2024-10-05] MEDS: Ketorolac 15 MG/ML SDV IVPUSH ONE (18:20)
[2024-10-05] MEDS: Sodium Chloride 0.9% 1,000 ML IV SCH (18:21)
[2024-10-05] MEDS ORDERED: Naloxone 0.4 MG/ML SDV IVPUSH PRN (19:09)
[2024-10-05] MEDS: HYDROmorphone 0.5 MG/0.5 ML Syringe IVPUSH ONE (19:14)
[2024-10-05 20:38] VITALS: BP 133/67; PULSE 99
== END 2024-10-05 20:35 | disposition home or self-care (01) ==
LOC: JD.ED 16:19
DX: G43.909 Migraine, unspecified, not intractable, without status migrainosus (principal); Z90.49 Acquired absence of other specified parts of digestive tract; I10 Essential (primary) hypertension; E78.00 Pure hypercholesterolemia, unspecified; J45.909 Unspecified asthma, uncomplicated; E11.9 Type 2 diabetes mellitus without complications; E66.9 Obesity, unspecified; Z90.710 Acquired absence of both cervix and uterus; Z79.82 Long term (current) use of aspirin; Z79.84 Long term (current) use of oral hypoglycemic drugs; Z79.899 Other long term (current) drug therapy; Z88.8 Allergy status to other drugs, medicaments and biological substances; Z88.1 Allergy status to other antibiotic agents; Z88.5 Allergy status to narcotic agent
CPT/HCPCS: 96361; 96374; 96375; 99283; 99283-25; J1171; J1200; J1885; J2405; J7030

== ENCOUNTER 2024-12-11 06:39 | Emergency (ER) | payer MEDICAID ==
[2024-12-11 07:25] LABS: BASOPHILS ABSOLUTE AUTO 0.0 K/mm3 (0.0-0.2); BASOPHILS PERCENT AUTO 0.4 % (0.0-1.0); EOSINOPHILS ABSOLUTE AUTO 0.0 K/mm3 (0.0-0.4); EOSINOPHILS PERCENT AUTO 0.2 % (0.0-6.0); IMMATURE GRAN ABSOLUTE AUTO 0.05 K/mm3 (0.00-0.05); IMMATURE GRAN PERCENT AUTO 0.5 % (0.0-0.4); LYMPHOCYTES ABSOLUTE AUTO 2.1 K/mm3 (1.0-4.8); LYMPHOCYTES PERCENT AUTO 20.1 % (24.0-44.0); MEAN PLATELET VOLUME 11.7 fl (9.4-12.3); MONOCYTES ABSOLUTE AUTO 0.7 K/mm3 (0.0-0.8); MONOCYTES PERCENT AUTO 6.9 % (0.0-8.0); NEUTROPHILS ABSOLUTE AUTO 7.4 K/mm3 (1.8-7.7); NEUTROPHILS PERCENT AUTO 71.9 % (41.0-71.0); NRBC ABSOLUTE 0.00 (0.00-0.02); NRBC PERCENT 0.0 % (0.0-0.2); PLATELET COUNT,PLT 162 K/mm3 (150-400); RED BLOOD CELL COUNT 5.16 M/mm3 (4.10-5.30); WHITE BLOOD CELL COUNT,WBC 10.26 K/mm3 (3.9-11.3)
[2024-12-11] MEDS: Ondansetron 4 MG/2 ML SDV IVPUSH ONE (07:32)
[2024-12-11] MEDS: Ketorolac 60 MG/2 ML SDV IM ONE (07:32)
[2024-12-11] MEDS: Sodium Chloride 0.9% 10 ML Syringe FLUSH PRN (07:33)
[2024-12-11 07:37] LABS: A/G RATIO 1.3 (1-2); ALANINE AMINOTRANSFERASE,ALT 60 U/L (14-59); ASPARTATE AMNIOTRANSFERASE,AST 29 U/L (15-37); BILIRUBIN TOTAL 0.5 mg/dL (0.2-1.0); BLOOD UREA NITROGEN,BUN 17 mg/dL (7-18); CARBON DIOXIDE,CO2 25 mEq/L (21-32); CHLORIDE,CL 102 mEq/L (98-107); CREATINE KINASE,CK 132 U/L (26-192); CREATININE 0.7 mg/dL (0.55-1.02); ESTIMATED GFR 96 mL/min (>60); GLUCOSE RANDOM 113 mg/dL (70-99); POTASSIUM,K 4.2 mEq/L (3.5-5.1); PROTEIN TOTAL,TP 7.7 g/dl (6.4-8.2); SODIUM,NA 138 mEq/L (136-145)
[2024-12-11 15:11] VITALS: BP 127/68; PULSE 65
== END 2024-12-11 08:45 | disposition home or self-care (01) ==
LOC: JD.ED 06:39
DX: G43.109 Migraine with aura, not intractable, without status migrainosus (principal); I10 Essential (primary) hypertension; E78.00 Pure hypercholesterolemia, unspecified; J45.909 Unspecified asthma, uncomplicated; E11.9 Type 2 diabetes mellitus without complications; Z86.16 Personal history of COVID-19; Z90.49 Acquired absence of other specified parts of digestive tract; Z90.710 Acquired absence of both cervix and uterus; Z88.0 Allergy status to penicillin; Z88.1 Allergy status to other antibiotic agents; Z88.5 Allergy status to narcotic agent; Z88.8 Allergy status to other drugs, medicaments and biological substances; Z79.82 Long term (current) use of aspirin; Z79.84 Long term (current) use of oral hypoglycemic drugs; Z79.899 Other long term (current) drug therapy
CPT/HCPCS: 36415; 80053; 82550; 85025; 96365; 96372; 96375; 99283; A9270; J1885; J2405; J2765; J3475; J7030

== ENCOUNTER 2024-12-31 19:41 | Emergency (ER) | payer MEDICAID, OTHER ==
[2024-12-31 20:20] LABS: BASOPHILS ABSOLUTE AUTO 0.0 K/mm3 (0.0-0.2); BASOPHILS PERCENT AUTO 0.8 % (0.0-1.0); EOSINOPHILS ABSOLUTE AUTO 0.1 K/mm3 (0.0-0.4); EOSINOPHILS PERCENT AUTO 1.3 % (0.0-6.0); IMMATURE GRAN ABSOLUTE AUTO 0.01 K/mm3 (0.00-0.05); IMMATURE GRAN PERCENT AUTO 0.2 % (0.0-0.4); LYMPHOCYTES ABSOLUTE AUTO 1.3 K/mm3 (1.0-4.8); LYMPHOCYTES PERCENT AUTO 26.6 % (24.0-44.0); MEAN PLATELET VOLUME 11.7 fl (9.4-12.3); MONOCYTES ABSOLUTE AUTO 0.7 K/mm3 (0.0-0.8); MONOCYTES PERCENT AUTO 14.6 % (0.0-8.0); NEUTROPHILS ABSOLUTE AUTO 2.7 K/mm3 (1.8-7.7); NEUTROPHILS PERCENT AUTO 56.5 % (41.0-71.0); NRBC ABSOLUTE 0.00 (0.00-0.02); NRBC PERCENT 0.0 % (0.0-0.2); PLATELET COUNT,PLT 192 K/mm3 (150-400); RED BLOOD CELL COUNT 4.60 M/mm3 (4.10-5.30); WHITE BLOOD CELL COUNT,WBC 4.78 K/mm3 (3.9-11.3)
[2024-12-31 20:49] LABS: A/G RATIO 1.2 (1-2); BILIRUBIN TOTAL 0.7 mg/dL (0.2-1.0); BLOOD UREA NITROGEN,BUN 29.0 mg/dL (7-18); CARBON DIOXIDE,CO2 24.0 mEq/L (21-32); CHLORIDE,CL 104.0 mEq/L (98-107); CREATININE 0.9 mg/dL (0.55-1.02); EST CRCL DRUG DOSING (CG) 51.55 mL/min; ESTIMATED GFR 71.0 mL/min (>60); GLUCOSE RANDOM 132.0 mg/dL (70-99); PROTEIN TOTAL,TP 7.4 g/dl (6.4-8.2); SODIUM,NA 138.0 mEq/L (136-145)
[2024-12-31 20:51] LABS: APPEARANCE,URINE CLEAR (Clear); GLUCOSE,URINE 2+ (Negative); OCCULT BLOOD,URINE NEGATIVE (Negative)
[2024-12-31 20:52] LABS: ALANINE AMINOTRANSFERASE,ALT 2473.0 U/L (14-59)
[2024-12-31 20:55] LABS: POTASSIUM,K 4.7 mEq/L (3.5-5.1)
[2024-12-31 20:56] LABS: ASPARTATE AMNIOTRANSFERASE,AST 1371.0 U/L (15-37); CREATINE KINASE,CK 4824.0 U/L (26-192)
[2024-12-31 21:01] LABS: SQUAMOUS EPITHELIAL CELLS,UR 0-5 /hpf (0-5)
[2024-12-31] MEDS: Sodium Chloride 0.9% 10 ML Syringe FLUSH PRN (21:27)
[2024-12-31] MEDS: Iopamidol 612 MG/ML 100 ML Bottle IVPUSH ONE (21:27)
[2025-01-01 02:22] VITALS: BP 158/79; PULSE 82
[2025-01-03 11:46] LABS: HAV AB IGM Negative (Negative); HBC IGM Negative (Negative); HEP B SURG AG Negative (Negative); HEP C AB BY CIA Negative (Negative); HEP C AB BY CIA INDEX <0.02 IV
== END 2025-01-01 02:00 | disposition home or self-care (01) ==
LOC: JD.ED 19:41
DX: R40.4 Transient alteration of awareness (principal); M62.82 Rhabdomyolysis; R41.0 Disorientation, unspecified; R79.89 Other specified abnormal findings of blood chemistry; E78.00 Pure hypercholesterolemia, unspecified; I10 Essential (primary) hypertension; K21.9 Gastro-esophageal reflux disease without esophagitis; J45.909 Unspecified asthma, uncomplicated; Z88.1 Allergy status to other antibiotic agents; Z88.0 Allergy status to penicillin; Z88.6 Allergy status to analgesic agent; Z88.8 Allergy status to other drugs, medicaments and biological substances; Z79.82 Long term (current) use of aspirin; Z79.899 Other long term (current) drug therapy; Z86.16 Personal history of COVID-19; Z90.49 Acquired absence of other specified parts of digestive tract
CPT/HCPCS: 36415; 51702; 70450; 71045; 74177; 80053; 80074; 81001; 82550; 83690; 83735; 85025; 99285; C1758; Q9967

== ENCOUNTER 2025-01-03 08:48 | Emergency (ER) | payer OTHER ==
[2025-01-03] MEDS: Dexamethasone 4 MG/ML 5 ML MDV PO ONE (10:39)
[2025-01-03 10:47] LABS: BASOPHILS ABSOLUTE AUTO 0.0 K/mm3 (0.0-0.2); BASOPHILS PERCENT AUTO 0.4 % (0.0-1.0); EOSINOPHILS ABSOLUTE AUTO 0.1 K/mm3 (0.0-0.4); EOSINOPHILS PERCENT AUTO 1.0 % (0.0-6.0); IMMATURE GRAN ABSOLUTE AUTO 0.03 K/mm3 (0.00-0.05); IMMATURE GRAN PERCENT AUTO 0.4 % (0.0-0.4); LYMPHOCYTES ABSOLUTE AUTO 1.6 K/mm3 (1.0-4.8); LYMPHOCYTES PERCENT AUTO 20.4 % (24.0-44.0); MEAN PLATELET VOLUME 11.0 fl (9.4-12.3); MONOCYTES ABSOLUTE AUTO 1.0 K/mm3 (0.0-0.8); MONOCYTES PERCENT AUTO 12.5 % (0.0-8.0); NEUTROPHILS ABSOLUTE AUTO 5.1 K/mm3 (1.8-7.7); NEUTROPHILS PERCENT AUTO 65.3 % (41.0-71.0); NRBC ABSOLUTE 0.00 (0.00-0.02); NRBC PERCENT 0.0 % (0.0-0.2); PLATELET COUNT,PLT 157 K/mm3 (150-400); RED BLOOD CELL COUNT 4.87 M/mm3 (4.10-5.30); WHITE BLOOD CELL COUNT,WBC 7.79 K/mm3 (3.9-11.3)
[2025-01-03 11:14] LABS: A/G RATIO 1.2 (1-2); ALANINE AMINOTRANSFERASE,ALT 888.0 U/L (14-59); ASPARTATE AMNIOTRANSFERASE,AST 181.0 U/L (15-37); BILIRUBIN TOTAL 0.5 mg/dL (0.2-1.0); BLOOD UREA NITROGEN,BUN 16.0 mg/dL (7-18); CARBON DIOXIDE,CO2 24.0 mEq/L (21-32); CHLORIDE,CL 103.0 mEq/L (98-107); CREATININE 0.7 mg/dL (0.55-1.02); EST CRCL DRUG DOSING (CG) 72.1 mL/min; ESTIMATED GFR 96.0 mL/min (>60); GLUCOSE RANDOM 106.0 mg/dL (70-99); POTASSIUM,K 4.0 mEq/L (3.5-5.1); PROTEIN TOTAL,TP 7.3 g/dl (6.4-8.2); SODIUM,NA 136.0 mEq/L (136-145)
[2025-01-03 11:15] LABS: CREATINE KINASE,CK 791 U/L (26-192)
[2025-01-03 11:19] LABS: CORONAVIRUS COVID-19 NAA NEGATIVE (NEGATIVE); INFLUENZA A NAA NEGATIVE (NEGATIVE); RESPIRATORY SYNCYTIAL VIR NAA NEGATIVE (NEGATIVE)
[2025-01-03 15:39] VITALS: BP 168/75; PULSE 71
== END 2025-01-03 15:30 | disposition home or self-care (01) ==
LOC: JD.ED 08:48
DX: J02.9 Acute pharyngitis, unspecified (principal); R74.01 Elevation of levels of liver transaminase levels; R79.89 Other specified abnormal findings of blood chemistry; E78.00 Pure hypercholesterolemia, unspecified; I10 Essential (primary) hypertension; K21.9 Gastro-esophageal reflux disease without esophagitis; E11.9 Type 2 diabetes mellitus without complications; Z90.49 Acquired absence of other specified parts of digestive tract; Z88.1 Allergy status to other antibiotic agents; Z88.8 Allergy status to other drugs, medicaments and biological substances; Z79.82 Long term (current) use of aspirin; Z79.899 Other long term (current) drug therapy; Z79.84 Long term (current) use of oral hypoglycemic drugs
CPT/HCPCS: 36415; 71045; 76705; 80053; 80143; 82248; 82550; 85025; 86308; 87637; 87651; 99284; J1100; 99283

== ENCOUNTER 2025-02-13 14:41 | Emergency (ER) | payer MEDICAID ==
[2025-02-13] MEDS ORDERED: Naloxone 0.4 MG/ML SDV IVPUSH PRN (15:11)
[2025-02-13 16:34] VITALS: BP 143/97; PULSE 62
== END 2025-02-13 16:30 | disposition home or self-care (01) ==
LOC: JD.ED 14:41
DX: M54.42 Lumbago with sciatica, left side (principal); G89.29 Other chronic pain; M47.816 Spondylosis without myelopathy or radiculopathy, lumbar region; M16.0 Bilateral primary osteoarthritis of hip; I10 Essential (primary) hypertension; K21.9 Gastro-esophageal reflux disease without esophagitis; E11.9 Type 2 diabetes mellitus without complications; E66.9 Obesity, unspecified; E78.00 Pure hypercholesterolemia, unspecified; Z88.1 Allergy status to other antibiotic agents; Z88.0 Allergy status to penicillin; Z88.8 Allergy status to other drugs, medicaments and biological substances; Z88.5 Allergy status to narcotic agent; Z79.82 Long term (current) use of aspirin; Z79.899 Other long term (current) drug therapy; Z90.49 Acquired absence of other specified parts of digestive tract; Z90.710 Acquired absence of both cervix and uterus; Z79.84 Long term (current) use of oral hypoglycemic drugs; Z68.29 Body mass index [BMI] 29.0-29.9, adult
CPT/HCPCS: 72131; 72131-26; 72192; 72192-26; 96372; 99284; J1171

== ENCOUNTER 2025-03-24 14:33 | Emergency (ER) | payer MEDICAID ==
[2025-03-24] MEDS: Ketorolac 30 MG/ML SDV IM ONE (16:09)
[2025-03-24 17:23] VITALS: BP 128/71; PULSE 75
== END 2025-03-24 17:05 | disposition home or self-care (01) ==
LOC: JD.ED 14:33
DX: M54.16 Radiculopathy, lumbar region (principal); I10 Essential (primary) hypertension; E66.9 Obesity, unspecified; E11.9 Type 2 diabetes mellitus without complications; E78.00 Pure hypercholesterolemia, unspecified; K21.9 Gastro-esophageal reflux disease without esophagitis; Z79.899 Other long term (current) drug therapy; Z79.51 Long term (current) use of inhaled steroids; Z88.1 Allergy status to other antibiotic agents; Z88.0 Allergy status to penicillin; Z88.8 Allergy status to other drugs, medicaments and biological substances; Z90.49 Acquired absence of other specified parts of digestive tract; Z90.710 Acquired absence of both cervix and uterus; Z68.30 Body mass index [BMI] 30.0-30.9, adult
CPT/HCPCS: 96372; 99283; J1171; J1885; J7512